=== PATIENT | female | born 1945 | race Caucasian/White ===

== ENCOUNTER → 2017-07-16 | Day surgery (SDC) | payer OTHER ==
[2017-05-21 13:51] VITALS: Ht 157.5 cm; Wt 93.2 kg
[~2017-07-16] VITALS: Ht 157.5 cm; Wt 93.2 kg
[~2017-07-16] MED LIST: AMLO-110 PO; ASPEC81 PO; CHOL1000 PO; CRS20 PO; GLCSR5 PO; LEVO100T PO; LISI-729 PO; METF1TAB53 PO; METO50TA16 PO; NAPR-1169 PO; RANI300T2 PO; SITA100T3 PO; TRIA37.5 PO
== END | disposition home or self-care (01) ==
LOC: EDSTATUS 13:30 → C.PAT 15:39
PROVIDERS: ATTEND Ophthalmology
DX: H26.9 Unspecified cataract (principal); Z53.9 Procedure and treatment not carried out, unspecified reason

== ENCOUNTER → 2018-05-13 | Day surgery (SDC) | payer OTHER ==
[2018-05-07 10:10] VITALS: BMI 35.0
[~2018-05-13] VITALS: Ht 154.9 cm; Wt 83.6 kg
[~2018-05-13] MED LIST changes: +ALEN70TA4 PO; -AMLO-110 PO; +AMLO5TAB3 PO; -ASPEC81 PO; +ASPI-319 PO; -CRS20 PO; +EMPA1TAB PO; +FENTANYL CITRATE INJ 50 MCG/1 ML 2 ML VIAL ONE; +FERR1TAB13 PO; -GLCSR5 PO; +GLIP-199 PO; -LEVO100T PO; +LEVO75TA PO; +LEVOPOW PO; +LIDOCAINE HCL 2% 2 ML VIAL (20MG/ML) ONE; -NAPR-1169 PO; +PROPOFOL IV EMULSION 10 MG/ML 20 ML VIAL ONE; +ROSU40TA PO; -SITA100T3 PO; +SODIUM CHLORIDE 0.9% 500ML 500 ML IV ONE; +TRMCR180 TOP
[2018-05-13 09:28] VITALS: Ht 154.9 cm; Wt 83.6 kg
--- NOTE | 2018-05-13 10:16 | Endo History and Physical ---
History & Physical Date of Service: May 13, 2018. Chief Complaint: ANEMIA GERD Referring Physician: DR BUENO History of Present Illness pt with heartburn and anemia Past Surgical History Hx Cardiac Surgery: Yes (HEART CATH, NO STENTS) Hx Internal Defibrillator: No Hx Pacemaker: No Hx Abdominal Surgery: No Hx of Implantable Prosthesis: No Hx Post-Op Nausea and Vomiting: No Hx Cancer Surgery: Yes (LUMPECTOMY) Hx Thoracic Surgery: No Hx Orthopedic: Yes (LT KNEE ARTHROSCOPY) Hx Urinary Tract Surgery: No Family History None Social History Smoking Status: Former Smoker Hx Substance Use: No Hx Alcohol Use: Yes (RARELY) Allergies Coded Allergies: No Known Allergies (Verified , 05/13/18) Current Medications Reported Home Medications Medications Dose Route/Sig Max Daily Dose Days Date Category Dose Instructions Jardiance (Empagliflozin) 10 Mg Tab 1 Tab PO QAM 05/07/18 Reported Kp Ferrous Sulfate (Ferrous Sulfate) 325 Mg Tab 1 Tab PO BID 05/07/18 Reported Aristocort 0.1% (Triamcinolone Acet) 240 Appln/80 Gm Cr 1 Dose TOP BID 05/07/18 Reported Fosamax (Alendronate Sodium) 70 Mg Tab 70 Mg PO WK 05/07/18 Reported L-Thyroxine Sodium (Levothyroxine Sodium (Bulk)) 1 Pow Pow 100 Mcg PO QAM 05/07/18 Reported Synthroid (Levothyroxine Sodium) 75 Mcg Tab 75 Mcg PO QAM 05/07/18 Reported Glipizide Er (Glipizide) 10 Mg Tab 2 Tab PO QAM 90 05/07/18 Reported Ecotrin Or Generic (Aspirin) 81 Mg Tab 81 Mg PO QAM 05/07/18 Reported Crestor (Rosuvastatin Calcium) 40 Mg Tab 40 Mg PO QAM 05/07/18 Reported Glucophage Ext Rel (Metformin Hcl) 1,000 Mg Tab 1,000 Mg PO BID 05/21/17 Reported Dyazide 37.5MG/25MG (Triamterene/HCTZ) Cap 1 Tab PO WK 09/10/16 Reported SATURDAY Vitamin D3 (Cholecalciferol) 1,000 Unit Tab 1 Tab PO QAM 09/10/16 Reported Norvasc (Amlodipine Besylate) 5 Mg Tab 2.5 Mg PO QAM 03/07/11 Reported Prinivil (Lisinopril) 5 Mg Tab 5 Mg PO QAM 03/07/11 Reported Lopressor (Metoprolol Tartrate) 50 Mg Tab 50 Mg PO BID 02/17/09 Reported Zantac (Ranitidine HCl) 300 Mg Tab 300 Mg PO HS PRN 02/17/09 Reported Vital Signs Weight (Kilograms): 83.63 Height (Feet): 5 Height (Inches): 1 Date Time Temp Pulse Resp B/P (MAP) Pulse Ox O2 Delivery O2 Flow Rate FiO2 05/13/18 09:33 37 75 18 175/77 (109) 96 Room Air Physical Exam General Appearance: no apparent distress Respiratory/Chest: Auscultation: breath sounds normal Cardiovascular: Heart Auscultation: RRR Abdomen: Inspection & Palpation: soft Liver: non-tender Assessment and Plan stable for EGD
--- NOTE | 2018-05-13 10:51 | Discharge Instructions ---
Endoscopy Patient Instructions Date / Procedure(s) Performed May 13, 2018. EGD Allergy Information Coded Allergies: No Known Allergies (Verified , 05/13/18) Discharge Date / Findings May 13, 2018. small gastric erosions no bleeding Medication Instructions Stopped Medication(s): ASPIRIN IRON Provider Instructions Activity Restrictions - No exercising or heavy lifting for 24 hours. - Do not drink alcohol the day of the procedure. - Do not drive a car or operate machinery until the day after the procedure. - Do not make any important decisions or sign important papers in 24 hours after the procedure. Following Day: - Return to full activity which may include returning to work/school. Diet Start your diet with liquids and light foods (jello, soup, juice, toast). Then eat your usual diet if not nauseated. Treatment For Common After Affects For mild abdominal pain, bloating, or excessive gas: - Rest - Eat lightly - Lie on right side Follow-Up Information Follow-up with DR BUENO as scheduled Anesthesia Information What You Should Know You have had a procedure that required some medicine to reduce anxiety and discomfort. This treatment is called moderate sedation. After receiving the treatment, you may be sleepy, but you will be able to breathe on your own. The effects of the treatment may last for several hours. Follow these instructions along with Activity/Diet recommendations noted above: * Do NOT do anything where dizziness or clumsiness would be dangerous. * Rest quietly at home today, then you can be up and about tomorrow. * Have a responsible person stay with you the rest of today. * You may have had an I.V. today. If so, you may take the dressing off later today. Recommendations Call your doctor if: * Trouble breathing * Continuous vomiting for more than 24 hours * Temperature above 101 degrees * Severe abdominal pain or bloating * Pain not relieved by pain medicine ordered * There is increased drainage or redness from any incision * A large amount of rectal bleeding greater than 2-3 tablespoons. (If you had a polyp/s removed or have hemorrhoids, a small amount of blood - from the rectum is to be expected.) * You have any unanswered questions or concerns. IN THE EVENT OF A SERIOUS EMERGENCY, GO TO THE NEAREST EMERGENCY ROOM Your discharge instructions were prepared by provider Matias Campos. Patient Instructions Signature Page Monique Galicia Patient (or Guardian) Signature/Date: I have read and understand the instructions given to me by my caregivers. Caregiver/RN/Doctor Signature/Date: The above-named patient and/or guardian has received patient instructions on this date. + Original Patient Signature Page (only) stays with chart. Please make copy for patient.
--- NOTE | 2018-05-13 10:57 | GI REPORT ---
Patient Name: Monique Galicia Procedure Date: 05/13/2018 10:22 AM Date of : 1945 Admit Type: Outpatient Age: 73 Gender: Female Attending MD: Matias Campos MD Procedure: Upper GI endoscopy Providers: Matias Campos MD Referring MD: Hemal Truong Indications: Heartburn, Anemia Medicines: See the Anesthesia note for documentation of the administered medications Complications: No immediate complications. Estimated Blood Loss: Estimated blood loss: none. Procedure: Pre-Anesthesia Assessment: - Prior to the procedure, a History and Physical was performed, and patient medications, allergies and sensitivities were reviewed. The patient's tolerance of previous anesthesia was reviewed. - The risks and benefits of the procedure and the sedation options and risks were discussed with the patient. All questions were answered and informed consent was obtained. - Patient identification and proposed procedure were verified prior to the procedure by the physician and the nurse. The procedure was verified in the pre-procedure area. - Pre-procedure physical examination revealed no contraindications to sedation. - After reviewing the risks and benefits, the patient was deemed in satisfactory condition to undergo the procedure. After obtaining informed consent, the endoscope was passed under direct vision. Throughout the procedure, the patient's blood pressure, pulse, and oxygen saturations were monitored continuously. The Scope was introduced through the mouth, and advanced to the third part of duodenum. The upper GI endoscopy was accomplished without difficulty. The patient tolerated the procedure well. Findings: The esophagus was normal. A small hiatal hernia was present. Multiple, small non-bleeding erosions were found in the cardia and in the gastric antrum. The examined duodenum was normal. The cardia and gastric fundus were normal on retroflexion. Impression: - Normal esophagus. - Small hiatal hernia. - Non-bleeding erosive gastropathy. - Normal examined duodenum. - No specimens collected. Recommendation: - Use a proton pump inhibitor PO daily indefinitely. - Discharge patient to home. Matias Campos M.D. Matias Campos MD 05/13/2018 10:57:06 AM This report has been signed electronically. Note Initiated On: 05/13/2018 10:22 AM Number of Addenda: 0 I attest to the content of the Intraoperative Record and orders documented therein, exceptions below {[id number]}
[2018-05-13 11:11] VITALS: BP 157/83; PULSE 65; O2SAT 96
--- NOTE | 2018-05-13 14:05 | Anesthesiology Progress Note ---
Anesthesia Post Op Note Date & Time May 13, 2018 at 14:04 Vital Signs Pain Intensity: 0 Vital Signs Past 12 Hours Date Time Temp Pulse Resp B/P (MAP) Pulse Ox O2 Delivery O2 Flow Rate FiO2 05/13/18 11:11 65 18 157/83 (107) 96 Room Air 05/13/18 10:56 69 18 174/81 (112) 93 Room Air 05/13/18 10:41 68 18 152/69 (96) 92 Room Air 05/13/18 09:33 37 75 18 175/77 (109) 96 Room Air Notes Mental Status: alert / awake / arousable, participated in evaluation Pt Amnestic to Procedure: Yes Nausea / Vomiting: adequately controlled Pain: adequately controlled Airway Patency, RR, SpO2: stable & adequate BP & HR: stable & adequate Hydration State: stable & adequate Anesthetic Complications: no major complications apparent
== END | disposition home or self-care (01) ==
LOC: C.GI 08:21
PROVIDERS: ATTEND Internal Medicine Gastroenterology
DX: K44.9 Diaphragmatic hernia without obstruction or gangrene (principal); K31.9 Disease of stomach and duodenum, unspecified; D64.9 Anemia, unspecified; I25.10 Atherosclerotic heart disease of native coronary artery without angina pectoris; I10 Essential (primary) hypertension; E11.9 Type 2 diabetes mellitus without complications; E78.5 Hyperlipidemia, unspecified; Z79.899 Other long term (current) drug therapy; Z79.82 Long term (current) use of aspirin; Z79.84 Long term (current) use of oral hypoglycemic drugs; Z87.891 Personal history of nicotine dependence

== ENCOUNTER 2019-02-17 11:21 | Inpatient (IN) ==
[2019-02-17] MEDS ORDERED: ONDANSETRON INJ 2 MG/ML 2 ML VIAL IV STA ×2 (12:59→15:18)
[2019-02-17] MEDS ORDERED: SODIUM CHLORIDE 0.9% 1000ML 1,000 ML IV SCH (13:00)
[2019-02-17] MEDS ORDERED: ONDANSETRON 4 MG OD TAB PO STA (13:26)
[2019-02-17] MEDS ORDERED: FAMOTIDINE 20MG/5ML IV PUSH IV STA (13:26)
[2019-02-17 14:10] LABS: Hematocrit (blood only) 51.6 % (37-47); Hemoglobin 17.4 g/dL (12.0-16.0); Mean Corpuscular Hgb Conc 33.7 g/dL (32-36); Mean Corpuscular Volume 88.8 fL (80-100); Mean Platelet Volume 9.8 fL (7.4-10.4); Platelet Count 405 K/uL (130-400); RDW Coefficient of Variation 15.5 % (11.5-14.5); RDW Standard Deviation 50.1 fL (36.4-46.3); Red Blood Count 5.81 M/uL (4.2-5.4); White Blood Count 27.82 K/uL (4.8-10.8)
[2019-02-17 14:13] LABS: Basophils # (auto) 0.02 K/uL (0-0.2); Basophils % (auto) 0.1 %; Immature Granulocytes # (auto) 0.13 K/uL (0.00-0.02); Immature Granulocytes % (auto) 0.5 %; Lymphocytes # (auto) 2.13 K/uL (1.2-3.4); Lymphocytes % (auto) 7.7 %; Monocytes # (auto) 1.08 K/uL (0.11-0.59); Monocytes % (auto) 3.9 %; Neutrophils # (auto) 24.46 K/uL (1.4-6.5); Neutrophils % (auto) 87.8 %
[2019-02-17 14:18] LABS: Alanine Aminotransferase 26 U/L (12-78); Albumin Globulin Ratio 0.8 (0.9-2); Albumin Level 3.7 gm/dl (3.4-5.0); Alkaline Phosphatase 100 U/L (45-117); Aspartate Aminotransferase 17 U/L (15-37); Bilirubin,Total 0.6 mg/dl (0.2-1); Blood Urea Nitrogen 52 mg/dl (7-18); Calcium 9.6 mg/dl (8.5-10.1); Carbon Dioxide 21 mmol/L (21-32); Chloride 100 mmol/L (98-107); Est GFR (African American) 27.5; Est GFR (Non-African American) 23.7; Globulin 4.9 gm/dl (2.5-4.0); Glucose 585 mg/dl (70-99); Potassium 4.1 mmol/L (3.5-5.1); Sodium 137 mmol/L (136-145); Total Protein 8.6 gm/dl (6.4-8.2)
[2019-02-17] MEDS ORDERED: DKA GOAL RANGE 150-250 mg/dl ONE ×2 (14:19→18:46)
[2019-02-17] MEDS ORDERED: SEVERE STRESS LEVEL ONE (14:19)
[2019-02-17 14:54] LABS: Beta-Hydroxybutyrate 60.17 mg/dl (0.2-2.81)
[2019-02-17] MEDS ORDERED: PANTOprazole 80 MG in DEXTROSE 5% 100 ML IV STA (15:22)
--- NOTE | 2019-02-17 15:32 | CT Scan Report ---
ABDOMEN AND PELVIS CT WITHOUT CONTRAST CT DOSE: 587.67 mGy.cm HISTORY: Acute abdominal pain with emesis abd pain vomiting TECHNIQUE: Multiaxial CT images of the abdomen and pelvis were performed without contrast. A dose lo wering technique was utilized adhering to the principles of ALARA. COMPARISON STUDY: None. FINDINGS: Linear subsegmental groundglass opacities of the left lung base suggest atelectasis and/or scarring. Right lung base is generally clear. No pneumatosis or pneumoperitoneum. Imaged inferior cardiac chamb ers are mildly enlarged with coronary arterial calcifications noted. There are large gallstones noted about the gallbladder lumen without CT evidence of acute cholecystit is. No biliary ductal dilation. Hepatic steatosis. No evidence of cirrhosis or focal hepatic mass les ion. The spleen appears unremarkable. Mild right and moderate left adrenal gland thickening. Mild inf lammatory stranding is noted about the distal pancreatic body and tail. Pancreas otherwise appears un remarkable. Mild nonspecific left perinephric stranding. Right kidney and bilateral ureters are unrem arkable. Urinary bladder, uterus and adnexa are within normal limits. Extensive calcification of the aorta without aneurysm. No adenopathy. 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 The stomach is m oderately fluid distended. The distal stomach and duodenum are decompressed. There is no small bowel obstruction. Colonic diverticulosis without acute diverticulitis. The majority of the large bowel is decompressed. The terminal ileum and appendix appear normal. No drainable fluid collection. Soft tiss ues appear unremarkable. Degenerative changes of the pelvis, hips and spine. Demineralized appearance of the bones without acute fracture or suspicious bone lesion identified. IMPRESSION: 1. Moderately distended stomach with large hiatal hernia and suggested organoaxial gastric volvulus. Correlate clinically to exclude gastric outlet obstruction. 2. Mild inflammatory stranding about the distal pancreatic body and tail. Correlate with lipase level to exclude acute pancreatitis. 3. Cholelithiasis without CT evidence of acute cholecystitis or biliary ductal dilation. 4. Colonic diverticulosis without definite CT evidence of acute diverticulitis. 5. Normal appendix. 6. Hepatic steatosis. 7. Additional findings as above. Electronically signed by: Tariq Medina M.D. 02/17/2019 3:31 PM
[2019-02-17] MEDS ORDERED: SODIUM CHLORIDE 0.9% 1000ML 1,000 ML IV ONE ×2 (15:35→16:06)
[2019-02-17] MEDS ORDERED: POTASSIUM CHLORIDE / WTR 10 MEQ/100 ML PLCT IV SCH (16:15)
[2019-02-17] MEDS ORDERED: NovoLIN-R BOLUS FROM BAG IV ONE (16:15)
[2019-02-17] MEDS: INSULIN REGULAR 250 UNITS in SODIUM CHLORIDE 0.9% 247.5 ML IV SCH ×2 (16:31→19:57)
--- NOTE | 2019-02-17 16:36 | Gastrointestinal Consultation ---
Date of Consultation February 17, 2019 Assessment & Plan (1) Hiatal hernia: (2) Volvulus of stomach: Pt is a 73 y/o female who presented to ED w N/V x 2 days, coffee ground emesis, upon eval noted to have leukocytosis, appears dehydrated and in DKA. CT abd/pelvis showed distended stomach w large hiatal hernia and gastric volvulus. Mild peripancreatic inflammatory stranding but normal LFTs and lipase thus less likely having pancreatitis. - Keep NPO; IVF bolus and maintenance fluid for hydration, insulin gtt ordered by ED physician - NGT decompression. - Protonix bolus and gtt. - Discussed case with my attending Dr. Matias Campos who recommended surgical eval for the volvulus and endoscopic approach would less likely to be successful. Primary team consulted Gen Surgery, recommended CT surgery for the gastric volvulus. Dr. Segovia (CT Surgery) is going to come in and evaluate pt. Supervising Physician Co-Signing Physician Notes I discussed the case in detail with COLIN Lawler. We suggest NGT and surgical evaluation. History of Present Illness Reason for Consultation: N/V, coffee ground emesis Requesting Physician: Dr. Tan Chen Attending Physician: Dr. Matias Campos History of Present Illness Pt is a 73 y/o female who was referred to ED by her PCP for n/v symptoms x 2 days, initially suspected to be from pancreatitis as her Lipase was elevated on outpt labs. She has PMHx of DM II, hypothyroidism, HTN, GERD, hiatal hernia, dyslipidemia. Upon evaluation labs showed WBC 27K, H/H 17/51, BUN/Cr 52/2, glucose is 585, LFTs and Lipase normal. CT abd/pelvis showed moderately distended stomach with large hiatal hernia and suggested organoaxial gastric volvulus. There's a mild inflammatory stranding about the distal pancreatic body and tail. + Cholelithiasis without CT evidence of acute cholecystitis or biliary ductal dilation. She appears weak, denies any abd pain, noted still having n/v, emesis bag w coffee ground looking material. Upon exam she is tender to palpation on epigastric area. Allergies Allergy/AdvReac Type Severity Reaction Status Date / Time No Known Allergies Allergy Verified 02/17/19 13:52 Home Medications Home Medications Medication Instructions Recorded Confirmed Type alendronate 70 mg PO WK 02/17/19 02/17/19 History amlodipine 5 mg PO DAILY 02/17/19 02/17/19 History aspirin [Aspirin Low Dose] 81 mg PO DAILY 02/17/19 02/17/19 History cholecalciferol (vitamin D3) 2,000 unit PO DAILY 02/17/19 02/17/19 History [Vitamin D3] diclofenac sodium 1 applic TOPICAL Q6H PRN 02/17/19 02/17/19 History empagliflozin [Jardiance] 10 mg PO DAILY 02/17/19 02/17/19 History ferrous sulfate 1 tab PO BID 02/17/19 02/17/19 History glipizide 20 mg PO DAILY 02/17/19 02/17/19 History levothyroxine 75 mcg PO DAILY 02/17/19 02/17/19 History lisinopril 5 mg PO DAILY 02/17/19 02/17/19 History metformin 1,000 mg PO BID 02/17/19 02/17/19 History metoprolol tartrate 50 mg PO BID 02/17/19 02/17/19 History omeprazole 20 mg PO DAILY 02/17/19 02/17/19 History ondansetron 1 tab TRANSLINGUAL Q8H PRN 02/17/19 02/17/19 History rosuvastatin [Crestor] 40 mg PO DAILY 02/17/19 02/17/19 History triamcinolone acetonide 1 applic TOPICAL BID 02/17/19 02/17/19 History triamterene-hydrochlorothiazid 1 cap PO DAILY 02/17/19 02/17/19 History Patient History Medical History Volvulus of stomach Diabetic neuropathy (Chronic) Diabetic retinopathy (Chronic) Hypothyroidism (Chronic) HLD (hyperlipidemia) (Chronic) HTN (hypertension) (Chronic) CAD (coronary artery disease) (Chronic) mild to moderate obstructive disease per left heart cath GERD (gastroesophageal reflux disease) (Chronic) Hiatal hernia (Chronic) Diverticulosis (Chronic) Senile osteoporosis (Chronic) Breast cancer, right (Chronic) PVD (peripheral vascular disease) (Chronic) Diabetes (Chronic) Surgical History History of colonoscopy with polypectomy (Chronic) History of esophagogastroduodenoscopy (EGD) (Chronic) erosive gastropathy History of partial mastectomy of right breast (Chronic) History of arthroscopy of knee (Chronic) Family History Mother Coronary heart disease Father Alzheimer disease Sister Diabetes Coronary heart disease Brother Coronary heart disease Other Family history non-contributory Social History Preferred Language: Armenian Communication Ability: Effective marital status: Current Living Situation: Spouse current occupational status: retired Feels Safe at Home: Yes Smoking Status: Never smoker Do You Dip or Chew Tobacco: No Hx Alcohol Use: No Hx Substance Use: No Review of Systems Review of Systems: All systems reviewed & are unremarkable except as noted in HPI & below Physical Exam Constitutional: WD/WN, vitals as above + ill appearing and cooperative Eyes: PERRL, conjunctivae normal, anicteric sclerae ENMT: external ear and nose normal, oropharynx normal Respiratory: normal respiratory effort, lungs clear to auscultation Cardiovascular: RRR, no murmur, no edema Gastrointestinal (Abdomen): Inspection/Auscultation: + hypoactive bowel sounds Percussion/Palpation: + abdomen tender (epigastric ) and abdomen soft Skin: no rashes, warm and dry no jaundice Neurologic: Motor/Sensory: no asterixis Psychiatric: Orientation: alert, oriented x 3 and cooperative Affect: + depressed affect Lymphatic: no lymphedema Results & Data Vital Signs (Past 12 Hours) Vital Signs Temp Pulse Pulse Resp BP BP Pulse Ox 02/17/19 14:34 109 H 16 132/88 94 02/17/19 13:20 103 H 16 136/81 92 02/17/19 11:25 36.9 C 114 H 20 114/76 93
--- NOTE | 2019-02-17 16:40 | Anesthesiology Consultation ---
Date of Service February 17, 2019 Assessment & Plan Chart Review Chart Review: Acceptable Risk for Surgery (Emergency) and Patient NOT seen in Pre Admission Testing Consults Requested none Pre op ECG done showing ST elevation, STEMI and anterior MT. Discussed case with Dr. Cox, clinical engineering manager and Dr. Segovia. Discussed findings with patient and her as well. Decision was made to resuscitate patient and investigate her cardiac condition further. [employer] is consulted. Pt will be taken to ICU under Dr. Khan care. ASA [id number] Proposed Anesthesia Anesthesia Type: General Anesthesia Line Insertion: Arterial line Risk / Benefits Reviewed With: PT / POA / Parent / Guardian, Accepts Plan and Informed Consent Obtained Additional Comments: R/B of anesthesia explained to patient and her husbang including her high risk for cardiac complications due to her comorbidities. Pt accepting risks and consent was signed. History Surgery Operation Date: 02/18/19 08:30 Proposed Procedures p Robotic Laparoscopic Hiatal Hernia Repair - Dell Segovia MD, FACS Height/Weight Height: 1.55 m Weight: 87.4 kg Allergies Allergy/AdvReac Type Severity Reaction Status Date / Time No Known Allergies Allergy Verified 02/17/19 13:52 Medications Home Medications Medication Instructions Recorded Confirmed Last Taken alendronate 70 mg PO WK 02/17/19 02/17/19 Unknown amlodipine 5 mg PO DAILY 02/17/19 02/17/19 Unknown aspirin [Aspirin Low Dose] 81 mg PO DAILY 02/17/19 02/17/19 Unknown cholecalciferol (vitamin D3) 2,000 unit PO DAILY 02/17/19 02/17/19 Unknown [Vitamin D3] diclofenac sodium 1 applic TOPICAL Q6H PRN 02/17/19 02/17/19 Unknown empagliflozin [Jardiance] 10 mg PO DAILY 02/17/19 02/17/19 Unknown ferrous sulfate 1 tab PO BID 02/17/19 02/17/19 Unknown glipizide 20 mg PO DAILY 02/17/19 02/17/19 Unknown levothyroxine 75 mcg PO DAILY 02/17/19 02/17/19 Unknown lisinopril 5 mg PO DAILY 02/17/19 02/17/19 Unknown metformin 1,000 mg PO BID 02/17/19 02/17/19 Unknown metoprolol tartrate 50 mg PO BID 02/17/19 02/17/19 Unknown omeprazole 20 mg PO DAILY 02/17/19 02/17/19 Unknown ondansetron 1 tab TRANSLINGUAL Q8H PRN 02/17/19 02/17/19 Unknown rosuvastatin [Crestor] 40 mg PO DAILY 02/17/19 02/17/19 Unknown triamcinolone acetonide 1 applic TOPICAL BID 02/17/19 02/17/19 Unknown triamterene-hydrochlorothiazid 1 cap PO DAILY 02/17/19 02/17/19 Unknown Active Medications Generic Name Dose Route Start Last Admin Trade Name Veronica PRN Reason Stop Dose Admin Insulin Human Regular 250 250 mls @ 4 mls/hr 02/17/19 14:30 02/17/19 16:31 units/ Sodium Chloride IV 03/19/19 14:29 4 units/hr .Q24H GILMA 4 mls/hr Administration Protocol 4 UNITS/HR NPO Date Last Intake of Fluids: 02/17/19 Time Last Intake of Fluids: 08:00 Date Last Intake of Solids: 02/17/19 Time Last Intake of Solids: 08:00 Past Medical History Medical History Volvulus of stomach Diabetic neuropathy (Chronic) Diabetic retinopathy (Chronic) Hypothyroidism (Chronic) HLD (hyperlipidemia) (Chronic) HTN (hypertension) (Chronic) CAD (coronary artery disease) (Chronic) mild to moderate obstructive disease per left heart cath GERD (gastroesophageal reflux disease) (Chronic) Hiatal hernia (Chronic) Diverticulosis (Chronic) Senile osteoporosis (Chronic) Breast cancer, right (Chronic) PVD (peripheral vascular disease) (Chronic) Diabetes (Chronic) Exercise / Class Metabolic Activity III < 4 Walking/Shop/Light housework Past Surgical History Surgical History History of colonoscopy with polypectomy (Chronic) History of esophagogastroduodenoscopy (EGD) (Chronic) erosive gastropathy History of partial mastectomy of right breast (Chronic) History of arthroscopy of knee (Chronic) Past Anesthesia History No Hx of Anesthesia Complications and No Family Hx of Anesthesia Complications History of PONV No Hx of PONV and No Hx of Motion Sickness Social History Smoking Status: Never smoker Do You Dip or Chew Tobacco: No Hx Alcohol Use: No Hx Substance Use: No Review of Systems Respiratory: no dyspnea Cardiovascular: no chest pain Gastrointestinal: + nausea, + vomiting and + hematemesis Physical Exam Vital Signs Last Vital Signs Temp 36.9 C 02/17/19 11:25 Pulse 110 H 02/17/19 16:10 Resp 19 02/17/19 16:10 BP 137/77 02/17/19 16:10 Pulse Ox 93 02/17/19 16:10 Constitutional + obese ENMT Mouth: + edentulous; no TMJ abnormality and no TMJ clicking Thyromental Distance: < 3.5 Finger Breadths Mallampati Class: II Neck normal visual inspection and + thick neck; neck extension not limited Respiratory Auscultation: lungs clear to auscultation bilaterally Cardiovascular Rate/Rhythm: regular rate and regular rhythm Psychiatric Orientation: alert and oriented x 3 Testing Electrocardiogram Date: 02/17/19 Findings: + NSR @ (95 bpm) Possible left atrial enlargement rightward axis Inferior infarct, possible acute Anterior MT, STEMI Cardiac Catheterization Date: 02/17/19 1. Mild to moderate early atherosclerotic CAD with a smooth 40% narrowing of the proximal LAD. Mild luminal irregularities of other vasculature 2. Hypedynamic LV function 3. Probable hypertensive heart disease 4. EF: 65% Other Testing Abdominal CT FINDINGS: Linear subsegmental groundglass opacities of the left lung base suggest atelectasis and/or scarring. Right lung base is generally clear. No pneumatosis or pneumoperitoneum. Imaged inferior cardiac chambers are mildly enlarged with coronary arterial calcifications noted. There are large gallstones noted about the gallbladder lumen without CT evidence of acute cholecystitis. No biliary ductal dilation. Hepatic steatosis. No evidence of cirrhosis or focal hepatic mass lesion. The spleen appears unremarkable. Mild right and moderate left adrenal gland thickening. Mild inflammatory stranding is noted about the distal pancreatic body and tail. Pancreas otherwise appears unremarkable. Mild nonspecific left perinephric stranding. Right kidney and bilateral ureters are unremarkable. Urinary bladder, uterus and adnexa are within normal limits. Extensive calcification of the aorta without aneurysm. No adenopathy. 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 The stomach is moderately fluid distended. The distal stomach and duodenum are decompressed. There is no small bowel obstruction. Colonic diverticulosis without acute diverticulitis. The majority of the large bowel is decompressed. The terminal ileum and appendix appear normal. No drainable fluid collection. Soft tissues appear unremarkable. Degenerative changes of the pelvis, hips and spine. Demineralized appearance of the bones without acute fracture or suspicious bone lesion identified. IMPRESSION: 1. Moderately distended stomach with large hiatal hernia and suggested organoaxial gastric volvulus. Correlate clinically to exclude gastric outlet obstruction. 2. Mild inflammatory stranding about the distal pancreatic body and tail. Correlate with lipase level to exclude acute pancreatitis. 3. Cholelithiasis without CT evidence of acute cholecystitis or biliary ductal dilation. 4. Colonic diverticulosis without definite CT evidence of acute diverticulitis. 5. Normal appendix. 6. Hepatic steatosis. 7. Additional findings as above. Laboratory Results 02/17/19 13:31 02/17/19 13:31 Blood Type O Positive 02/17/19 13:31 Antibody Screen NEGATIVE 02/17/19 13:31 On insulin drip at 4units/hr
--- NOTE | 2019-02-17 16:48 | History & Physical Report ---
Date of Service February 17, 2019 Assessment & Plan (1) Volvulus of stomach: (2) Hematemesis: (3) Leukocytosis: This is a 73 yr old F who has a significant PMH of T2DM with neuropathy and retinopathy, nonobstructive CAD, HTN, HLD, hypothyroidism, Gerd, hiatal hernia, PVD, senile osteoporosis, hx of R breast ca s/p mastectomy who presents to [facility] secondary to intractable n/v x 2 day. In ED patient was noted to have leukocytosis at 27.82k, H/H 17.4 and 51.6, platelet 405, corrected sodium 141, potassium 4.1, BUN 52, creatinine 2.02, gap 16, glucose 585, lipase 270, beta hydroxybutyric acid 60 CT of abdomen pelvis revealed gastric volvulus in setting of large hiatal hernia concerning for gastric outlet obstruction along with inflammatory stranding about the distal pancreatic body and tail concerning for acute pancreatitis GI and Thoracic surgery consulted Spoke with Dr. Segovia - Pt to require surgical intervention; however upon anesthesia evaluation pt with ECG changes therefore will not undergo surgical intervention this evening admit to ICU post operatively please defer to thoracic surgery and wine consultant for further assessment and tx plan (4) SIRS (systemic inflammatory response syndrome): Pt with leukocytosis and tachycardia on admission, per CMS guidelines meets SIRS criteria urine culture and blood culture pending lactic acid level pending received 2 L IVF while in ED Start patient of IV zosyn until infection ruled out (5) DKA (diabetic ketoacidoses): Blood glucose on arrival 585 Hold oral hypoglycemics Patient received IV insulin while in ED Will place on insulin drip and IVF resuscitation Monitor VBG pH, BMP, mag, phos every 4 hours (6) Acute kidney injury: Baseline creatinine 0.6 BUN/creatinine 52 and 2.02 today Prerenal hypovolemia in setting of intractable nausea and vomiting IV fluid resuscitation, monitor BMP (7) Diabetes: Last A1c 7.3 on 02/10/2019 Treatment as above (8) CAD (coronary artery disease): No chest pain or shortness of breath ECG pending On metoprolol, lisinopril, Crestor, ASA as outpatient (9) HTN (hypertension): Blood pressure currently stable, monitor closely On metoprolol, lisinopril, amlodipine as outpatient (10) HLD (hyperlipidemia): Hold statin (11) DVT prophylaxis: SCDS Disposition: to be determined Follow up: PCP Dr. Truong upon discharge Patient was seen and examined in collaboration with Dr. Hammer, please see addendum History of Present Illness Chief Complaint: N/V x 2 days. Primary Care Provider: Hemal Truong MD This is a 73 yr old F who has a significant PMH of T2DM with neuropathy and retinopathy, nonobstructive CAD, HTN, HLD, hypothyroidism, Gerd, hiatal hernia, PVD, senile osteoporosis, hx of R breast ca s/p mastectomy who presents to [facility] secondary to intractable n/v x 2 day. is at bedside. Sx started on Saturday after alevism when she had a meat lovers pizza. Shortly after she developed nausea and vomiting. Since she has been having intractable nausea vomiting along with coffee-ground emesis. She is unable to tolerate liquid or solids. Never had anything like this in the past. Complains of left-sided abdominal pain, constant, waxes and wanes in severity, nothing makes it better or worse. Elicits to chills and sweats. She denies any recent illness or sick contacts. She denies fever, lightheadedness, dizziness, chest pain, shortness of breath, palpitations, dysuria, increased urgency with urination, hematuria, melena, hematochezia. Up until 2 days ago her appetite and p.o. intake has been normal. She denies any helen weight loss or gain. She is unable to take meds given emesis. Allergies Allergy/AdvReac Type Severity Reaction Status Date / Time No Known Allergies Allergy Verified 02/17/19 13:52 Home Medications Home Medications Medication Instructions Recorded Confirmed Type alendronate 70 mg PO WK 02/17/19 02/17/19 History amlodipine 5 mg PO DAILY 02/17/19 02/17/19 History aspirin [Aspirin Low Dose] 81 mg PO DAILY 02/17/19 02/17/19 History cholecalciferol (vitamin D3) 2,000 unit PO DAILY 02/17/19 02/17/19 History [Vitamin D3] diclofenac sodium 1 applic TOPICAL Q6H PRN 02/17/19 02/17/19 History empagliflozin [Jardiance] 10 mg PO DAILY 02/17/19 02/17/19 History ferrous sulfate 1 tab PO BID 02/17/19 02/17/19 History glipizide 20 mg PO DAILY 02/17/19 02/17/19 History levothyroxine 75 mcg PO DAILY 02/17/19 02/17/19 History lisinopril 5 mg PO DAILY 02/17/19 02/17/19 History metformin 1,000 mg PO BID 02/17/19 02/17/19 History metoprolol tartrate 50 mg PO BID 02/17/19 02/17/19 History omeprazole 20 mg PO DAILY 02/17/19 02/17/19 History ondansetron 1 tab TRANSLINGUAL Q8H PRN 02/17/19 02/17/19 History rosuvastatin [Crestor] 40 mg PO DAILY 02/17/19 02/17/19 History triamcinolone acetonide 1 applic TOPICAL BID 02/17/19 02/17/19 History triamterene-hydrochlorothiazid 1 cap PO DAILY 02/17/19 02/17/19 History Past Med/Surg History Medical History Volvulus of stomach Diabetic neuropathy (Chronic) Diabetic retinopathy (Chronic) Hypothyroidism (Chronic) HLD (hyperlipidemia) (Chronic) HTN (hypertension) (Chronic) CAD (coronary artery disease) (Chronic) mild to moderate obstructive disease per left heart cath GERD (gastroesophageal reflux disease) (Chronic) Hiatal hernia (Chronic) Diverticulosis (Chronic) Senile osteoporosis (Chronic) Breast cancer, right (Chronic) PVD (peripheral vascular disease) (Chronic) Diabetes (Chronic) Surgical History History of colonoscopy with polypectomy (Chronic) History of esophagogastroduodenoscopy (EGD) (Chronic) erosive gastropathy History of partial mastectomy of right breast (Chronic) History of arthroscopy of knee (Chronic) Family History Mother Coronary heart disease Father Alzheimer disease Sister Diabetes Coronary heart disease Brother Coronary heart disease Other Family history non-contributory Social History Preferred Language: Congolese Communication Ability: Effective marital status: Current Living Situation: Spouse current occupational status: retired Feels Safe at Home: Yes Smoking Status: Never smoker Do You Dip or Chew Tobacco: No Hx Alcohol Use: No Hx Substance Use: No Review of Systems Review of Systems: As noted per HPI, 10 systems reviewed and negative unless noted above. Physical Exam Physical Exam: Gen: Elderly, female, ill-appearing, having coffee-ground emesis during conversation, sitting up in bed, able to answer questions appropriately Head: Normocephalic, Atraumatic Eyes: Sclera normal, no conjunctival injection, PERRLA, EOMI ENT: Gross hearing intact, normal pharynx, mucous membranes dry Neck: supple, no adenopathy, No JVD, no bruit, Resp: Clear to auscultation b/l, no wheeze, rales, rhonchi. Normal insp/exp effort, no accessory muscle use CV: Tachycardic rate, regular rhythm, no murmur, rub, gallop, or ectopy Abd: Obese abdomen, absent bowel sounds, soft, nontender, nondistended Musculoskeletal: moves extremities active rom x 4, strength intact, good manager investment banking strength Extremities: +1 lower extremity jp bilaterally Skin: warm, dry, no rash, negative turgor, cap refill < 2sec Neuro: Alert and oriented x 3, speech normal, good mood/affect, cran nerve 2-12 intact grossly : deferred Results & Data Vital Signs (Past 12 Hours) Vital Signs Temp Pulse Pulse Resp BP BP Pulse Ox 02/17/19 16:10 110 H 19 137/77 93 02/17/19 16:00 110 H 20 92 02/17/19 15:31 97 H 22 130/73 92 02/17/19 15:30 103 H 21 93 02/17/19 15:26 107 H 20 92 02/17/19 15:23 112 H 20 135/93 92 02/17/19 14:34 109 H 16 132/88 94 02/17/19 13:20 103 H 16 136/81 92 02/17/19 11:25 36.9 C 114 H 20 114/76 93 Laboratory Results Short CBC 02/17/19 Range/Units 13:31 WBC 27.82 H (4.8-10.8) K/uL Hgb 17.4 H (12.0-16.0) g/dL Hct 51.6 H (37-47) % Plt Count 405 H (130-400) K/uL BMP 02/17/19 13:31 Sodium 137 Potassium 4.1 Chloride 100 Carbon Dioxide 21 BUN 52 H Creatinine 2.02 H Glucose 585 H* Calcium 9.6 Liver Function 02/17/19 Range/Units 13:31 Total Bilirubin 0.6 (0.2-1) mg/dl AST 17 (15-37) U/L ALT 26 (12-78) U/L Alkaline Phosphatase 100 (45-117) U/L Albumin 3.7 (3.4-5.0) gm/dl Diagnostic Findings Abd/Pelvis CT: IMPRESSION: 1. Moderately distended stomach with large hiatal hernia and suggested organoaxial gastric volvulus. Correlate clinically to exclude gastric outlet obstruction. 2. Mild inflammatory stranding about the distal pancreatic body and tail. Correlate with lipase level to exclude acute pancreatitis. 3. Cholelithiasis without CT evidence of acute cholecystitis or biliary ductal dilation. 4. Colonic diverticulosis without definite CT evidence of acute diverticulitis. 5. Normal appendix. 6. Hepatic steatosis. 7. Additional findings as above. Medications Administered Insulin Human Regular 250 (units/ Sodium Chloride) 250 mls @ 4 mls/hr IV .Q24H GILMA; Protocol Stop: 03/19/19 14:29 Last Admin: 02/17/19 16:31 Dose: 4 units/hr, 4 mls/hr Documented by: [id number] Cosigned by: [id number] Sodium Chloride (Nss 1000ml) 1,000 mls @ 999 mls/hr IV .Q1H1M ONE Stop: 02/17/19 17:06 Last Admin: 02/17/19 16:12 Dose: 999 mls/hr Documented by: [id number] Discontinued Medications Famotidine (Pepcid 20mg Iv Push) 20 mg IV ONE STA Stop: 02/17/19 13:27 Last Admin: 02/17/19 13:51 Dose: 20 mg Documented by: [id number] Sodium Chloride (Nss 1000ml) 1,000 mls @ 999 mls/hr IV .Q1H1M GILMA Stop: 02/17/19 14:00 Last Infusion: 02/17/19 14:54 Dose: 0 mls/hr Documented by: [id number] Admin: 02/17/19 13:52 Dose: 999 mls/hr Documented by: [id number] Pantoprazole Sodium 80 mg/ (Dextrose) 120 mls @ 480 mls/hr IV NOW STA Stop: 02/17/19 15:36 Last Infusion: 02/17/19 16:14 Dose: 0 mls/hr Documented by: [id number] Admin: 02/17/19 15:57 Dose: 480 mls/hr Documented by: [id number] Insulin Human Regular (Novolin R Bolus From Bag) 7 units IV ONE ONE Stop: 02/17/19 16:16 Last Admin: 02/17/19 16:31 Dose: 7 units Documented by: [id number] Cosigned by: [id number] Ondansetron HCl (Zofran) 4 mg IV NOW STA Stop: 02/17/19 13:00 Last Admin: 02/17/19 14:34 Dose: 4 mg Documented by: [id number] Ondansetron HCl (Zofran Odt) 4 mg PO NOW STA Stop: 02/17/19 13:27 Last Admin: 02/17/19 13:50 Dose: 4 mg Documented by: [id number] Ondansetron HCl (Zofran) 4 mg IV NOW STA Stop: 02/17/19 15:19 Last Admin: 02/17/19 15:28 Dose: 4 mg Documented by: [id number] Code Status & VTE Plan Code Status Full Code VTE Prophylaxis Plan VTE Prophylaxis will be ordered: Yes Supervising Physician Co-Signing Physician Notes Pt was seen and examined. Agreed with Sydney exam, assessment and plan. 73 y/o Female with significant PMH of T2DM with neuropathy and retinopathy, nonobstructive CAD, HTN, HLD, hypothyroidism, Gerd, hiatal hernia, PVD, senile osteoporosis, hx of R breast ca s/p mastectomy who presents to [facility] for n/v started about 2 days ago. Her symptoms started about 2 days ago after she had a meat lovers pizza. She has been having recurrent vomiting with coffee-ground emesis. CT abdomen done in the ER showed moderately distended stomach with large hiatal hernia and suggested organoaxial gastric volvulus. Mild inflammatory stranding about the distal pancreatic body and tail. Case discussed with thoracic surgery dr. Segovia who planned to take patient to OR, but because of abnormal EKG finding and elevated glucose with elevated anion gap, surgery was on hold until cardiac clearance. Pt denies any chest pain. GI on board and recommended to start on PPI drip. NGT was placed with low suction that drained coffee ground material in the canister. Case discussed with cardiology Dr. Arora who saw pt and planned to get a bedside echo now. Also I discussed the case with Dr. Cole since pt followed with [facility] cardiology who plan to get a stat echo and possible cardiac cath. case discussed with Dr. Cox the wine consultant who agreed to monitor pt closely in the ICU. Will follow up lactic acid level. will get troponin. Continue IVF. Monitor electrolytes and CBC. If pt decompensates overnight, will notify thoracic surgeon Dr. Segovia. Will keep NPO for now. Continue monitor closely. MD Harman (1) DKA (diabetic ketoacidoses) Diabetes mellitus complication detail: without coma Diabetes mellitus type: other specified (including PAULA) Qualified Code(s): E13.10 - Other specified diabetes mellitus with ketoacidosis without coma (2) Leukocytosis Leukocytosis type: unspecified Qualified Code(s): D72.829 - Elevated white blood cell count, unspecified (3) Hematemesis Nausea presence: unspecified Qualified Code(s): K92.0 - Hematemesis
[2019-02-17] MEDS ORDERED: MIDAZOLAM HCL 1 MG/ML 2ML VIAL ONE (16:54)
[2019-02-17] MEDS ORDERED: fentaNYL citrate 100 MCG/2 ML VIAL ONE ×2 (16:54)
[2019-02-17] MEDS ORDERED: SODIUM CHLORIDE 0.9% 250 ML IV PRN (17:28)
[2019-02-17] MEDS ORDERED: INSULIN ASPART 100 UNITS/ML 3 ML PEN SC SCH (18:00)
[2019-02-17 18:10] LABS: Base Excess VBG -2.4 mEq/L; Oxygen Saturation VBG 60.8 %; pH VBG 7.36 (7.36-7.41)
--- NOTE | 2019-02-17 18:21 | Emergency Department Note ---
Entered by Maureen Haynes acting as a scribe for History of Present Illness General Chief complaint: Abnormal Labs/Diagnostic Testing Stated complaint: PANCREATITIS Source: patient and family (daughter) History of Present Illness Onset (ago): day(s) 2 Location: abdomen Pain Consistency: + other (persistent) Quality: + other (vomiting) Exacerbated By: not by eating Associated symptoms: + denies other symptoms (dysuria, fever, chest pain, short ness of breath, or hematemesis) The patient is a 73 year old female that is presenting to the Emergency Room with complaints of persistent vomiting that started 2 days ago. The patient rep orts that she has left upper abdominal pain that is unchanged by eating or drinking. She states that her symptoms are not similar to any previous episodes. The patient notes that she has lost her voice secondary to the vomiting. She denies any dysuria, fever, chest pain, shortness of breath, or hematemesis. The patients daughter states that the patients vomit was coffee ground-like after arriving to the Emergency Room. The daughter notes that she is unsure what the vomit was like at home as she was unable to visualize it. She denies any prior abdominal surgery and notes that she still has her gall bladder. She denies drinking any alcohol. Home Medications Home Medications Medication Instructions Recorded Confirmed Type alendronate 70 mg PO WK 02/17/19 02/17/19 History amlodipine 5 mg PO DAILY 02/17/19 02/17/19 History aspirin [Aspirin Low Dose] 81 mg PO DAILY 02/17/19 02/17/19 History cholecalciferol (vitamin D3) 2,000 unit PO DAILY 02/17/19 02/17/19 History [Vitamin D3] diclofenac sodium 1 applic TOPICAL Q6H PRN 02/17/19 02/17/19 History empagliflozin [Jardiance] 10 mg PO DAILY 02/17/19 02/17/19 History ferrous sulfate 1 tab PO BID 02/17/19 02/17/19 History glipizide 20 mg PO DAILY 02/17/19 02/17/19 History levothyroxine 75 mcg PO DAILY 02/17/19 02/17/19 History lisinopril 5 mg PO DAILY 02/17/19 02/17/19 History metformin 1,000 mg PO BID 02/17/19 02/17/19 History metoprolol tartrate 50 mg PO BID 02/17/19 02/17/19 History omeprazole 20 mg PO DAILY 02/17/19 02/17/19 History ondansetron 1 tab TRANSLINGUAL Q8H PRN 02/17/19 02/17/19 History rosuvastatin [Crestor] 40 mg PO DAILY 02/17/19 02/17/19 History triamcinolone acetonide 1 applic TOPICAL BID 02/17/19 02/17/19 History triamterene-hydrochlorothiazid 1 cap PO DAILY 02/17/19 02/17/19 History Allergies Allergy/AdvReac Type Severity Reaction Status Date / Time No Known Allergies Allergy Verified 02/17/19 13:52 Past Med/Surg History Medical History Volvulus of stomach Diabetic neuropathy (Chronic) Diabetic retinopathy (Chronic) Hypothyroidism (Chronic) HLD (hyperlipidemia) (Chronic) HTN (hypertension) (Chronic) CAD (coronary artery disease) (Chronic) mild to moderate obstructive disease per left heart cath GERD (gastroesophageal reflux disease) (Chronic) Hiatal hernia (Chronic) Diverticulosis (Chronic) Senile osteoporosis (Chronic) Breast cancer, right (Chronic) PVD (peripheral vascular disease) (Chronic) Diabetes (Chronic) Surgical History History of colonoscopy with polypectomy (Chronic) History of esophagogastroduodenoscopy (EGD) (Chronic) erosive gastropathy History of partial mastectomy of right breast (Chronic) History of arthroscopy of knee (Chronic) Family History Mother Coronary heart disease Father Alzheimer disease Sister Diabetes Coronary heart disease Brother Coronary heart disease Other Family history non-contributory Social History Preferred Language: Pakistani Communication Ability: Effective marital status: Current Living Situation: Spouse current occupational status: retired Feels Safe at Home: Yes Smoking Status: Never smoker Do You Dip or Chew Tobacco: No Hx Alcohol Use: No Hx Substance Use: No Review of Systems See HPI for pertinent positives & negatives. and A total of 10 systems reviewed and were otherwise negative Physical Exam Vital Signs Vital Signs - 24 hr 02/17/19 11:25 02/17/19 13:20 02/17/19 14:34 Temperature 36.9 C Temperature Source Oral Sepsis Recent Fever Within 48 Hours No Sepsis New/Unexplained Change in Mental Status No Sepsis Action Taken by Nursing No Action Required Pulse Rate 114 H Pulse Rate [Apical] Pulse Rate [Finger] 103 H 109 H Pulse Rate from SpO2 Sensor Pulse Rhythm [Apical] Respiratory Rate 20 16 16 Respiratory Effort / Characteristics Respiratory Depth Respiratory Pattern Blood Pressure 114/76 Blood Pressure [Left Arm] Blood Pressure [Right Arm] 136/81 132/88 Blood Pressure Mean 88 Blood Pressure Mean [Left Arm] Blood Pressure Mean [Right Arm] 99 102 Blood Pressure Position [Left Arm] Pulse Oximetry 93 92 94 Oxygen Delivery Method Room Air Room Air Room Air 02/17/19 15:23 02/17/19 15:26 02/17/19 15:30 Temperature Temperature Source Sepsis Recent Fever Within 48 Hours Sepsis New/Unexplained Change in Mental Status Sepsis Action Taken by Nursing Pulse Rate 112 H 107 H 103 H Pulse Rate [Apical] Pulse Rate [Finger] Pulse Rate from SpO2 Sensor 111 H 106 H 103 H Pulse Rhythm [Apical] Respiratory Rate 20 20 21 Respiratory Effort / Characteristics Respiratory Depth Respiratory Pattern Blood Pressure 135/93 Blood Pressure [Left Arm] Blood Pressure [Right Arm] Blood Pressure Mean 107 Blood Pressure Mean [Left Arm] Blood Pressure Mean [Right Arm] Blood Pressure Position [Left Arm] Pulse Oximetry 92 92 93 Oxygen Delivery Method 02/17/19 15:31 02/17/19 16:00 02/17/19 16:10 Temperature Temperature Source Sepsis Recent Fever Within 48 Hours Sepsis New/Unexplained Change in Mental Status Sepsis Action Taken by Nursing Pulse Rate 97 H 110 H 110 H Pulse Rate [Apical] Pulse Rate [Finger] Pulse Rate from SpO2 Sensor 97 H 111 H 111 H Pulse Rhythm [Apical] Respiratory Rate 22 20 19 Respiratory Effort / Characteristics Respiratory Depth Respiratory Pattern Blood Pressure 130/73 137/77 Blood Pressure [Left Arm] Blood Pressure [Right Arm] Blood Pressure Mean 92 97 Blood Pressure Mean [Left Arm] Blood Pressure Mean [Right Arm] Blood Pressure Position [Left Arm] Pulse Oximetry 92 92 93 Oxygen Delivery Method 02/17/19 17:00 02/17/19 17:42 Temperature 36.9 C Temperature Source Oral Sepsis Recent Fever Within 48 Hours Sepsis New/Unexplained Change in Mental Status Sepsis Action Taken by Nursing Pulse Rate Pulse Rate [Apical] 108 H 102 H Pulse Rate [Finger] Pulse Rate from SpO2 Sensor Pulse Rhythm [Apical] Regular Regular Respiratory Rate 16 16 Respiratory Effort / Characteristics Non-Labored Spontaneous Non-Labored Spontaneous Respiratory Depth Normal Normal Respiratory Pattern Regular Regular Blood Pressure Blood Pressure [Left Arm] 122/72 132/72 Blood Pressure [Right Arm] Blood Pressure Mean Blood Pressure Mean [Left Arm] 88 92 Blood Pressure Mean [Right Arm] Blood Pressure Position [Left Arm] Sitting Semi-fowlers Pulse Oximetry 94 92 Oxygen Delivery Method Room Air Room Air GENERAL: Sitting up in bed, ill-appearing, no distress, non-toxic, holding a emesis bag with coffee ground emesis. EYE EXAM: normal conjunctiva, PERRL and EOM's grossly intact OROPHARYNX: no exudate, no erythema, lips, buccal mucosa, and tongue normal and mucous membranes are moist NECK: supple, no nuchal rigidity, no adenopathy, non-tender LUNGS: Clear to auscultation. Normal chest wall mechanics HEART: no murmurs, S1 normal and S2 normal ABDOMEN: abdomen soft, diffusely tender, normo-active bowel sounds, no masses, no rebound or guarding. BACK: Back is symmetrical on inspection and there is no deformity, no midline tenderness, no CVA tenderness. SKIN: no rashes and no bruising UPPER EXTREMITIES: upper extremities are grossly normal. LOWER EXTREMITIES: No pitting edema. NEURO EXAM: Normal sensorium, cranial nerves II-XII grossly intact, normal speech, no gross weakness of arms, no gross weakness of legs. Course ED COURSE: Vital signs were reviewed and showed tachycardia. The patients medical record was reviewed The above diagnostic studies were performed and reviewed. ED treatments and interventions as stated above. 1256: The patient was evaluated in room A11B. A complete history and physical examination was performed. 1509: I updated the patient on her current results. The patient is on her way to CT at this time. 1519: I discussed the patient's case with CHERYL Houston, who will evaluate the patient for further management and care with Dr. Hammer as the attending physician. 1531: I discussed the patient's case with Dr. Carrion, General Surgery, who recommended that the patient be evaluated by a GI specialist. 1606: I discussed the patient's case with Dr. Segovia, GI, who will take the patient to the Operating Room. 1615: Upon reevaluation, the patient is resting comfortably.I discussed my findings with the patient and she understands and agrees with the treatment plan . Based on the patients age, coexisting illnesses, exam and lab findings the decision to treat as an inpatient was made. The patient remained stable while under my care. The patient will be evaluated for further management. Consultations Consultation #1: I discussed the patient's case with CHERYL Houston, who will evaluate the patient for further management and care with Dr. Hammer as the attending physician. Time: 15:19 Consultation #2: I discussed the patient's case with Dr. Carrion, General Surgery, who recommended that the patient be evaluated by a GI specialist. Time: 15:31 Consultation #3: I discussed the patient's case with Dr. Segovia, GI, who will take the patient to the Operating Room. Time: 16:06 Administered Medications Insulin Human Regular 250 (units/ Sodium Chloride) 250 mls @ 4 mls/hr IV .Q24H GILMA; Protocol Stop: 03/19/19 14:29 Last Admin: 02/17/19 16:31 Dose: 4 units/hr, 4 mls/hr Documented by: [id number] Cosigned by: [id number] Discontinued Medications Famotidine (Pepcid 20mg Iv Push) 20 mg IV ONE STA Stop: 02/17/19 13:27 Last Admin: 02/17/19 13:51 Dose: 20 mg Documented by: [id number] Sodium Chloride (Nss 1000ml) 1,000 mls @ 999 mls/hr IV .Q1H1M GILMA Stop: 02/17/19 14:00 Last Infusion: 02/17/19 14:54 Dose: 0 mls/hr Documented by: [id number] Admin: 02/17/19 13:52 Dose: 999 mls/hr Documented by: [id number] Pantoprazole Sodium 80 mg/ (Dextrose) 120 mls @ 480 mls/hr IV NOW STA Stop: 02/17/19 15:36 Last Infusion: 02/17/19 16:14 Dose: 0 mls/hr Documented by: [id number] Admin: 02/17/19 15:57 Dose: 480 mls/hr Documented by: [id number] Sodium Chloride (Nss 1000ml) 1,000 mls @ 999 mls/hr IV .Q1H1M ONE Stop: 02/17/19 17:06 Last Admin: 02/17/19 16:12 Dose: 999 mls/hr Documented by: [id number] Insulin Human Regular (Novolin R Bolus From Bag) 7 units IV ONE ONE Stop: 02/17/19 16:16 Last Admin: 02/17/19 16:31 Dose: 7 units Documented by: [id number] Cosigned by: [id number] Ondansetron HCl (Zofran) 4 mg IV NOW STA Stop: 02/17/19 13:00 Last Admin: 02/17/19 14:34 Dose: 4 mg Documented by: [id number] Ondansetron HCl (Zofran Odt) 4 mg PO NOW STA Stop: 02/17/19 13:27 Last Admin: 02/17/19 13:50 Dose: 4 mg Documented by: [id number] Ondansetron HCl (Zofran) 4 mg IV NOW STA Stop: 02/17/19 15:19 Last Admin: 02/17/19 15:28 Dose: 4 mg Documented by: [id number] Medical Decision Making Differential Diagnosis Differential diagnoses includes but is not limited to gastritis, peptic ulcer disease, GERD, gallbladder disease, pancreatitis, small bowel obstruction, acute coronary syndrome, pericarditis, ischemic bowel, irritable bowel disease, irritable bowel syndrome, appendicitis, diverticulitis, malignancy, hernia, urinary tract infection, torsion, perforation, trauma, infectious. Medical Records Attestation: I reviewed the patient's medical records. Home Medications Current Medication List: was personally reviewed by me Laboratory Data Attestation: I reviewed the patient's lab results. Result diagrams: 02/17/19 13:31 02/17/19 13:31 Lab Results 02/17/19 02/17/19 02/17/19 Range/Units 13:31 13:31 13:31 WBC 27.82 H (4.8-10.8) K/uL RBC 5.81 H (4.2-5.4) M/uL Hgb 17.4 H (12.0-16.0) g/dL Hct 51.6 H (37-47) % MCV 88.8 (80-100) fL MCH 29.9 (25-34) pg MCHC 33.7 (32-36) g/dL RDW Std Deviation 50.1 H (36.4-46.3) fL RDW Coeff of Blaire 15.5 H (11.5-14.5) % Plt Count 405 H (130-400) K/uL MPV 9.8 (7.4-10.4) fL Immature Gran % (Auto) 0.5 % Neut % (Auto) 87.8 % Lymph % (Auto) 7.7 % Miller % (Auto) 3.9 % Eos % (Auto) 0.0 % Baso % (Auto) 0.1 % Immature Gran # (Auto) 0.13 H (0.00-0.02) K/uL Neut # (Auto) 24.46 H (1.4-6.5) K/uL Lymph # (Auto) 2.13 (1.2-3.4) K/uL Miller # (Auto) 1.08 H (0.11-0.59) K/uL Eos # (Auto) 0.00 (0-0.5) K/uL Baso # (Auto) 0.02 (0-0.2) K/uL Sodium 137 (136-145) mmol/L Potassium 4.1 (3.5-5.1) mmol/L Chloride 100 (98-107) mmol/L Carbon Dioxide 21 (21-32) mmol/L Anion Gap 16.0 H (3-11) BUN 52 H (7-18) mg/dl Creatinine 2.02 H (0.6-1.2) mg/dl Est Cr Clr Drug Dosing Not Reportable Est GFR ( Amer) 27.5 Est GFR (Non-Af Amer) 23.7 BUN/Creatinine Ratio 26.0 H (10-20) Glucose 585 H* (70-99) mg/dl POC Glucose (70-99) Calcium 9.6 (8.5-10.1) mg/dl Total Bilirubin 0.6 (0.2-1) mg/dl AST 17 (15-37) U/L ALT 26 (12-78) U/L Alkaline Phosphatase 100 (45-117) U/L Total Protein 8.6 H (6.4-8.2) gm/dl Albumin 3.7 (3.4-5.0) gm/dl Globulin 4.9 H (2.5-4.0) gm/dl Albumin/Globulin Ratio 0.8 L (0.9-2) Lipase 270 (73-393) U/L Beta-Hydroxybutyric Acd 60.17 H (0.2-2.81) mg/dl Blood Type O Positive Antibody Screen NEGATIVE Crossmatch 02/17/19 02/17/19 Range/Units 17:05 17:55 WBC (4.8-10.8) K/uL RBC (4.2-5.4) M/uL Hgb (12.0-16.0) g/dL Hct (37-47) % MCV (80-100) fL MCH (25-34) pg MCHC (32-36) g/dL RDW Std Deviation (36.4-46.3) fL RDW Coeff of Blaire (11.5-14.5) % Plt Count (130-400) K/uL MPV (7.4-10.4) fL Immature Gran % (Auto) % Neut % (Auto) % Lymph % (Auto) % Miller % (Auto) % Eos % (Auto) % Baso % (Auto) % Immature Gran # (Auto) (0.00-0.02) K/uL Neut # (Auto) (1.4-6.5) K/uL Lymph # (Auto) (1.2-3.4) K/uL Miller # (Auto) (0.11-0.59) K/uL Eos # (Auto) (0-0.5) K/uL Baso # (Auto) (0-0.2) K/uL Sodium (136-145) mmol/L Potassium (3.5-5.1) mmol/L Chloride (98-107) mmol/L Carbon Dioxide (21-32) mmol/L Anion Gap (3-11) BUN (7-18) mg/dl Creatinine (0.6-1.2) mg/dl Est Cr Clr Drug Dosing Est GFR ( Amer) Est GFR (Non-Af Amer) BUN/Creatinine Ratio (10-20) Glucose (70-99) mg/dl POC Glucose 441 H* (70-99) Calcium (8.5-10.1) mg/dl Total Bilirubin (0.2-1) mg/dl AST (15-37) U/L ALT (12-78) U/L Alkaline Phosphatase (45-117) U/L Total Protein (6.4-8.2) gm/dl Albumin (3.4-5.0) gm/dl Globulin (2.5-4.0) gm/dl Albumin/Globulin Ratio (0.9-2) Lipase (73-393) U/L Beta-Hydroxybutyric Acd (0.2-2.81) mg/dl Blood Type Antibody Screen Crossmatch See Detail Imaging Data Radiologist's Impression: Radiology results as stated below per my review and the radiologist's interpretation: ABDOMEN AND PELVIS CT WITHOUT CONTRAST CT DOSE: 587.67 mGy.cm HISTORY: Acute abdominal pain with emesis abd pain vomiting TECHNIQUE: Multiaxial CT images of the abdomen and pelvis were performed without contrast. A dose lowering technique was utilized adhering to the principles of ALARA. COMPARISON STUDY: None. FINDINGS: Linear subsegmental groundglass opacities of the left lung base suggest atelectasis and/or scarring. Right lung base is generally clear. No pneumatosis or pneumoperitoneum. Imaged inferior cardiac chambers are mildly enlarged with coronary arterial calcifications noted. There are large gallstones noted about the gallbladder lumen without CT evidence of acute cholecystitis. No biliary ductal dilation. Hepatic steatosis. No evidence of cirrhosis or focal hepatic mass lesion. The spleen appears unremarkable. Mild right and moderate left adrenal gland thickening. Mild inflammatory stranding is noted about the distal pancreatic body and tail. Pancreas otherwise appears unremarkable. Mild nonspecific left perinephric stranding. Right kidney and bilateral ureters are unremarkable. Urinary bladder, uterus and adnexa are within normal limits. Extensive calcification of the aorta without aneurysm. No adenopathy. 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 The stomach is moderately fluid distended. The distal stomach and duodenum are decompressed. There is no small bowel obstruction. Colonic diverticulosis without acute diverticulitis. The majority of the large bowel is decompressed. The terminal ileum and appendix appear normal. No drainable fluid collection. Soft tissues appear unremarkable. Degenerative changes of the pelvis, hips and spine. Demineralized appearance of the bones without acute fracture or suspicious bone lesion identified. IMPRESSION: 1. Moderately distended stomach with large hiatal hernia and suggested organoaxial gastric volvulus. Correlate clinically to exclude gastric outlet obstruction. 2. Mild inflammatory stranding about the distal pancreatic body and tail. Correlate with lipase level to exclude acute pancreatitis. 3. Cholelithiasis without CT evidence of acute cholecystitis or biliary ductal dilation. 4. Colonic diverticulosis without definite CT evidence of acute diverticulitis. 5. Normal appendix. 6. Hepatic steatosis. 7. Additional findings as above. Electronically signed by: Tariq Medina M.D. 02/17/2019 3:31 PM Blood Pressure Blood Pressure Findings: Normal blood pressure MDM Narrative Patient is a 73-year-old female with epigastric abdominal pain is been vomiting. She does have some hematemesis. She has some mild diffuse abdominal pain in the epigastric/left upper quadrant region. Labs were obtained and showed a leukocytosis of 28,000. Hemoglobin was 17. INR was unremarkable. With an anion gap and a glucose in the 500s. Patient was given 3 L IV fluids. Patient was given IV potassium along with an IV insulin bolus and insulin drip. CT abdomen pelvis showed volvulus of the stomach. Discussed with general surgery who recommended transfer versus thoracic. Did discuss with GI and thoracic surgery and patient was taken to the OR by thoracic surgery. Patient was monitored closely while in the ER. Patient was updated bedside and taken to the OR. Patient was typed and screened due to the hematemesis. Patient was also given IV famotidine. Did also discussed the case with the ICU resident. Impression & Plan Acute gastric volvulus, DKA (diabetic ketoacidoses), Hematemesis, Leukocytosis, Acute kidney injury Critical Care Time I have personally spent 35 minutes of critical care time in the direct management of this patient. This includes bedside care, interpretation of diagnostic studies, and testing, discussion with consultants, patient, and family members, and other required patient management activities. This 35 minutes is in excess of all separately billable procedures. Critical Care Time: Yes Total Critical Care Time: 35 Discharge Plan Visit Data *Final* Discharge Date/Time: 02/17/19 16:50 Chief Complaint: Abnormal Labs/Diagnostic Testing Stated Complaint: PANCREATITIS ED Provider: Tan Chen Discharge Problem: Acute gastric volvulus, DKA (diabetic ketoacidoses), Hematemesis, Leukocytosis, Acute kidney injury Patient Disposition: Admitted As Inpatient Discharge Instructions Interventions: ED Discharge Assessment Last Done: 02/17/19 16:50 The scribe's documentation has been prepared under my direction and personally reviewed by me in its entirety. I confirm that the note above accurately reflects all work, treatment, procedures, and medical decision making performed by me.
[2019-02-17 18:30] LABS: Prothrombin Time 10.6 Seconds (9.0-12.0)
[2019-02-17 18:44] LABS: Albumin Level 3.3 gm/dl (3.4-5.0); BUN Creatinine Ratio 28.5 (10-20); Bilirubin Direct 0.1 mg/dl (0-0.2); Bilirubin,Total 0.4 mg/dl (0.2-1); Calcium 8.8 mg/dl (8.5-10.1); Creatinine Clr Calc Pharmacy 28.8 ml/min; Est GFR (African American) 33.4; Est GFR (Non-African American) 28.8; Magnesium 2.7 mg/dl (1.8-2.4); Phosphorus 2.5 mg/dl (2.5-4.9); Potassium 3.6 mmol/L (3.5-5.1); Total Protein 7.6 gm/dl (6.4-8.2); Troponin I 0.039 ng/ml (0-0.045)
[2019-02-17] MEDS ORDERED: POTASSIUM CHLORIDE 20 MEQ in SODIUM CHLORIDE 0.45 % 1,000 ML IV SCH (18:46)
[2019-02-17] MEDS ORDERED: PIPERACILL/TAZOBAC CONSULT ACTIVE PRN (18:46)
[2019-02-17] MEDS ORDERED: MODERATE STRESS LEVEL ONE (18:46)
[2019-02-17] MEDS ORDERED: PENDING D5 1/2NS+20mEq KCL IVF SCH (18:46)
[2019-02-17] MEDS ORDERED: INSULIN REGULAR 250 UNITS in SODIUM CHLORIDE 0.9% 247.5 ML IV SCH (18:46)
[2019-02-17] MEDS ORDERED: fentaNYL citrate 100 MCG/2 ML VIAL IV PRN ×2 (18:46)
[2019-02-17] MEDS ORDERED: ICU PROTOCOL FOR HYPERGLYCEMIA PRN (18:46)
[2019-02-17] MEDS: NORMOSOL-R 1,000 ML IV SCH ×3 (18:56→22:30)
[2019-02-17 18:57] LABS: Beta-Hydroxybutyrate 34.2 mg/dl (0.2-2.81)
[2019-02-17] MEDS ORDERED: PIPERACILLIN/TAZOBACTAM 4.5 GM in DEXTROSE 5% 100 ML IV ONE (20:00)
[2019-02-17 20:07] LABS: Appearance Urine Clear (Clear); Bacteria Urine Automated 2+ (Negative); Bilirubin Urine Negative (Negative); Blood Urine 2+ (Negative); Color Urine Yellow; Epithelial Cell Urine Auto >30 /lpf (0-5); Glucose Urine UA 3+ (Negative); Ketones Urine 1+ (Negative); Leukocyte Esterase Urine Negative (Negative); Nitrite Urine Negative (Negative); Protein Urine 2+ (Negative); RBC Urine Automated 0-4 /hpf (0-4); Specific Gravity Urine 1.032 (1.000-1.030); Urobilinogen Urine Negative (Negative)
--- NOTE | 2019-02-17 20:14 | Cardiology Consultation ---
Date of Consultation February 17, 2019 Assessment & Plan (1) Abnormal EKG: (2) Acute gastric volvulus: Patient had findings on her EKG suggestive of of a acute inferior wall myocardial infarction. She has no helen symptoms suggestive of angina. Her presenting symptoms are certainly consistent with her known gastric volvulus with inability to tolerate solids and liquids and coffee-ground emesis. A stat bedside transthoracic echocardiogram was performed revealing hyperdynamic left ventricular systolic function with ejection fraction of greater than 70%. The right ventricular chamber size and systolic function were also normal. She has had symptoms for days and her troponin is within normal limits at 0.039 on initial measurement. At this time, I believe her EKG is likely a marker of strain due to her underlying illness rather than acute intra-coronary plaque rupture. Agree with plans to optimize her from a blood pressure, volume standpoint, and metabolic standpoint, prior to consideration of proceeding to the operating room. Need for emergent surgery may arise if she has worsening abdominal pain increasing lactate level. Results discussed with Dr. Cox in the ICU who was at the bedside during the echocardiogram. History of Present Illness Attending Physician: Brunilda Kathleen MD History of Present Illness Monique Galicia is a 73 year old female seen in cardiology consultation per the request of Dr Hammer for the evaluation of an abnormal EKG. The patient was most recently seen in outpatient cardiology clinic on 10/02/2018 at which time stable cardiac signs and symptoms were noted. She presented to the emergency department today due to intractable nauseousness and vomiting x2 days duration. She has had coffee-ground emesis and inability to tolerate liquids or solids. She has had left-sided abdominal pain that is waxed and waned. A CT of the abdomen pelvis had been performed earlier this afternoon which revealed a moderately distended stomach with large hiatal hernia and gastric volvulus. Other abnormalities included a leukocytosis with WBC count of 27.82, hyperglycemia with initial glucose in excess of 600, acute kidney injury with initial creatinine of 2.02 (trended down to 1.72), lactic acidosis with lactate level of 2.1. Consideration was made toward emergent thoracic surgery, however an EKG was performed at 1709 that revealed sinus rhythm at 95 bpm, and mild ST segment elevation was noted in the inferior leads II, III and aVF. T wave inversions were also noted in leads V2 to V4. Repeat EKG was performed at 1740 with ongoing changes although less prominent than on the initial EKG. The inferior repolarization changes were new compared to her prior outpatient EKG which I reviewed dated 10/01/2017. Her surgery was placed on hold and she was instead admitted to the intensive care unit. She was received fluid resuscitation, central line was placed as well as an arterial line. Her blood pressure is since improved. At one point she had a systolic blood pressure of 89 mmHg, and now she is actually hypertensive. Past Cardiac History: 1. Subtle ST segment abnormalities on EKG in the remote past lead to diagnostic cardiac catheterization February 2009 demonstrating moderate early atherosclerosis with a smooth 40% narrowing of the proximal LAD had mild luminal irregularities in the remaining vessels. The left ventricular systolic function was noted to be hyperdynamic at that time with elevated systolic and diastolic pressures consistent with hypertension and hypertensive heart disease 2. Type 2 diabetes mellitus Dyslipidemia Allergies Allergy/AdvReac Type Severity Reaction Status Date / Time No Known Allergies Allergy Verified 02/17/19 13:52 Home Medications Home Medications Medication Instructions Recorded Confirmed Type alendronate 70 mg PO WK 02/17/19 02/17/19 History amlodipine 5 mg PO DAILY 02/17/19 02/17/19 History aspirin [Aspirin Low Dose] 81 mg PO DAILY 02/17/19 02/17/19 History cholecalciferol (vitamin D3) 2,000 unit PO DAILY 02/17/19 02/17/19 History [Vitamin D3] diclofenac sodium 1 applic TOPICAL Q6H PRN 02/17/19 02/17/19 History empagliflozin [Jardiance] 10 mg PO DAILY 02/17/19 02/17/19 History ferrous sulfate 1 tab PO BID 02/17/19 02/17/19 History glipizide 20 mg PO DAILY 02/17/19 02/17/19 History levothyroxine 75 mcg PO DAILY 02/17/19 02/17/19 History lisinopril 5 mg PO DAILY 02/17/19 02/17/19 History metformin 1,000 mg PO BID 02/17/19 02/17/19 History metoprolol tartrate 50 mg PO BID 02/17/19 02/17/19 History omeprazole 20 mg PO DAILY 02/17/19 02/17/19 History ondansetron 1 tab TRANSLINGUAL Q8H PRN 02/17/19 02/17/19 History rosuvastatin [Crestor] 40 mg PO DAILY 02/17/19 02/17/19 History triamcinolone acetonide 1 applic TOPICAL BID 02/17/19 02/17/19 History triamterene-hydrochlorothiazid 1 cap PO DAILY 02/17/19 02/17/19 History Patient History Medical History Volvulus of stomach Diabetic neuropathy (Chronic) Diabetic retinopathy (Chronic) Hypothyroidism (Chronic) HLD (hyperlipidemia) (Chronic) HTN (hypertension) (Chronic) CAD (coronary artery disease) (Chronic) mild to moderate obstructive disease per left heart cath GERD (gastroesophageal reflux disease) (Chronic) Hiatal hernia (Chronic) Diverticulosis (Chronic) Senile osteoporosis (Chronic) Breast cancer, right (Chronic) PVD (peripheral vascular disease) (Chronic) Diabetes (Chronic) Surgical History History of colonoscopy with polypectomy (Chronic) History of esophagogastroduodenoscopy (EGD) (Chronic) erosive gastropathy History of partial mastectomy of right breast (Chronic) History of arthroscopy of knee (Chronic) Family History Mother Coronary heart disease Father Alzheimer disease Sister Diabetes Coronary heart disease Brother Coronary heart disease Other Family history non-contributory Social History Preferred Language: Faroese Communication Ability: Effective marital status: Current Living Situation: Spouse current occupational status: retired Feels Safe at Home: Yes Smoking Status: Never smoker Do You Dip or Chew Tobacco: No Hx Alcohol Use: No Hx Substance Use: No Physical Exam Constitutional: + ill appearing Respiratory: normal respiratory effort, lungs clear to auscultation Cardiovascular: RRR, no murmur, no edema Heart Sounds: no murmur Extremities: no edema Gastrointestinal (Abdomen): Inspection/Auscultation: + abdomen distended Percussion/Palpation: + abdomen tender; no ascites Neurologic: moves all extremities; no focal motor deficits No focal deficits, conversant Results & Data Vital Signs (Past 12 Hours) Vital Signs Temp Pulse Pulse Pulse Resp BP BP 02/17/19 18:46 97 H 18 135/52 L 02/17/19 18:33 36.8 C 111 H 19 89/68 L 02/17/19 17:42 102 H 16 132/72 02/17/19 17:00 36.9 C 108 H 16 122/72 02/17/19 16:10 110 H 19 137/77 02/17/19 16:00 110 H 20 02/17/19 15:31 97 H 22 130/73 02/17/19 15:30 103 H 21 02/17/19 15:26 107 H 20 02/17/19 15:23 112 H 20 135/93 02/17/19 14:34 109 H 16 02/17/19 13:20 103 H 16 02/17/19 11:25 36.9 C 114 H 20 114/76 BP Pulse Ox 02/17/19 18:46 94 02/17/19 18:33 94 02/17/19 17:42 92 02/17/19 17:00 94 02/17/19 16:10 93 02/17/19 16:00 92 02/17/19 15:31 92 02/17/19 15:30 93 02/17/19 15:26 92 02/17/19 15:23 92 02/17/19 14:34 132/88 94 02/17/19 13:20 136/81 92 02/17/19 11:25 93 Laboratory Results Cardiac Enzymes 02/17/19 02/17/19 Range/Units 13:31 17:55 AST 17 16 (15-37) U/L Troponin I 0.039 (0-0.045) ng/ml Coagulation 02/17/19 Range/Units 17:55 PT 10.6 (9.0-12.0) Seconds CBC 02/17/19 Range/Units 13:31 WBC 27.82 H (4.8-10.8) K/uL RBC 5.81 H (4.2-5.4) M/uL Hgb 17.4 H (12.0-16.0) g/dL Hct 51.6 H (37-47) % Plt Count 405 H (130-400) K/uL Neut # (Auto) 24.46 H (1.4-6.5) K/uL Lymph # (Auto) 2.13 (1.2-3.4) K/uL Denali # (Auto) 1.08 H (0.11-0.59) K/uL Eos # (Auto) 0.00 (0-0.5) K/uL Baso # (Auto) 0.02 (0-0.2) K/uL Comprehensive Metabolic Panel 02/17/19 02/17/19 Range/Units 13:31 17:55 Sodium 137 (136-145) mmol/L Potassium 4.1 3.6 (3.5-5.1) mmol/L Chloride 100 110 H (98-107) mmol/L Carbon Dioxide 21 22 (21-32) mmol/L BUN 52 H 49 H (7-18) mg/dl Creatinine 2.02 H 1.72 H D (0.6-1.2) mg/dl Glucose 585 H* 420 H* (70-99) mg/dl Calcium 9.6 8.8 (8.5-10.1) mg/dl Direct Bilirubin 0.1 (0-0.2) mg/dl AST 17 16 (15-37) U/L ALT 26 25 (12-78) U/L Alkaline Phosphatase 100 87 (45-117) U/L Total Protein 8.6 H 7.6 (6.4-8.2) gm/dl Albumin 3.7 3.3 L (3.4-5.0) gm/dl Intake and Output 02/17/19 02/17/19 02/17/19 06:59 14:59 22:59 Intake Total 1000 / 1133.733 133.733 / 1133.733 Balance 1000 / 1133.733 133.733 / 1133.733 Intake: IV 1000 / 1133.733 133.733 / 1133.733 NovoLIN R 250 UNITS In Nss 247. 13.733 / 13.733 5 ml @ 4 UNITS/HR 4 mls/hr IV . Q24H [facility] Rx#:[id number] Protonix 80 mg In D5 100 ml @ 120 / 120 480 mls/hr IV NOW STA Rx#: [id number] Nss 1000ML 1,000 ml @ 999 mls/ 1000 / 1000 hr IV .Q1H1M [facility] Rx#:[id number] Other: Weight 87.4 kg Patient Weight 02/18/19 06:59 Weight 87.4 kg
[2019-02-17] MEDS ORDERED: METOPROLOL TARTRATE 1 MG/ML VIAL IV STA (20:20)
--- NOTE | 2019-02-17 20:58 | Procedure Note ---
Procedure Note Date of Service February 17, 2019 Procedure Note Procedure Name: A line placement Procedure time out: Patient name and left side for site placement was verified Consent obtained: Risks and benefits of the procedure were discussed, written consent was obtained Performed by: Dr. Cox Indications: diagnostic Contraindications: none Description: The patient was placed in supine position, left radial artery was visualized under ultrasound guidance. The skin was prepped with chlorhexidine and draped to create a sterile field. Using ultrasound guidance and Seldinger technique, the artery was accessed and line advanced. Line was secured with 1 suture, covered with surgical dressing/tegaderm. Complications: none Patient tolerated procedure: well Coding Resident Activity Tracking Resident Involvement: Resident Care Provided Care Provided: Adult [facility]
--- NOTE | 2019-02-17 21:07 | Procedure Note ---
Procedure Note Date of Service February 17, 2019 Procedure Note Procedure: Right IJ Central Line Placement Reason for procedure: Central line was placed due to lack of adequate IV access in this patient. Consent: Risks and procedures were explained to the patient. Patient and family agreed to the procedure and written consent was obtained.. The patient was placed in supine position. Under strict sterile field, the skin was prepped with chlorhexidine, pt was draped in the usual fashion. Under ultrasound guidance the right IJ was visualized. Approximately 5 cc of 1% lidocaine was injected using sterile technique. Under ultrasound guidance the right IJ was accessed and placement was confirmed both ultrasound and needle aspiration of venous blood. Wire was advanced and an access incision was made along with half of the wire using a scalpel. A dilator was successfully advanced. A triple-lumen central line was then introduced over the wire and placed to 20 cm. All ports were flushed with normal saline. The line was secured using 2 sutures and a device clip and then covered with Tegaderm. Chest x-ray ordered to confirm placement of the catheter at the SVC. Patient tolerated the procedure well without any complications The procedure was done by myself with the assistance and supervision of Dr. Cox who was present throughout the entire procedure. Procedure Date: Noted Above Procedure: Procedural Ultrasound Indication: Central venous access Attending: Daiana Cox DO Resident/Physician Composite Layup Worker: Venkat Artery visualized: Yes Vein visualized: Yes Compressible Vein: Yes Vein patent: Yes Guidewire or Short Catheter seen in vein prior to dilation: Yes Line confirmed in Vein with ultrasound: Yes Lung Sliding on side of attempt (if applicable): NA If no lung sliding or not obtained has CXR been ordered: Yes Impression: Successful central venous access placement Images obtained are saved for permanent record Coding Resident Activity Tracking Resident Involvement: Resident Care Provided Care Provided: [facility]
--- NOTE | 2019-02-17 21:21 | XRay Report ---
KUB CLINICAL HISTORY: Feeding Tube placement COMPARISON STUDY: CT of the abdomen and pelvis performed earlier today. FINDINGS: Incidental note is made of gallstones. There is a relative paucity small bowel gas. The tip of the nasogastric tube projects over the lower mediastinum, likely within the intrathoracic portion of the stomach within the known hiatal hernia shown on CT from earlier today. IMPRESSION: Nasogastric tube coiled with tip projecting over the lower mediastinum, likely within th e intrathoracic portion of the stomach with hiatal hernia. Electronically signed by: Agustin Linn M.D. 02/17/2019 9:20 PM
--- NOTE | 2019-02-17 21:28 | Critical Care Consultation ---
Date of Consultation February 17, 2019 Assessment & Plan (1) Admitted to intensive care unit: Reason Critically Ill: 73-year-old female with acute gastric volvulus found to have concerning EKG changes in the perioperative setting. DKA complicating clinical course. NEURO - * CAM ICU: NEGATIVE * Fentanyl as needed for pain. CARDIAC/VASCULAR - * Acute EKG changes with concern for STEMI: * Emergent Echo shows no regional wall motion abnormalities. Hyperdynamic left ventricular function w/ EF of >70%. Hyperdynamic Right ventricle noted. No valvular disease. * Cardiology more concerned w/ underlying strain pattern in the setting of hypovolemia and acute state of illness. * Patient does respond well to IVF. This may correlate to patient's EKG improvement w/ added preload in the setting of strain. * Troponins were initially negative. Will continue to trend. * Serial EKGs as needed. * Known LAD lesion per cardiology. * Monitor on telemetry. RESPIRATORY - * No h/o Pulmonary disease: * Monitor closely for volume overload in the setting of aggressive IVF resuscitation. * Supplemental O2 PRN GI/NUTRITION - * Acute Gastric Volvulus: * Complicated and likely 2/2 known hiatal hernia. * Lactate minimally elevated --> will trend to evaluate for possible progressive ischemia. Doubt substantial ischemia at this point and stomach w/ adequate collateral blood flow which should help maintain perfusion and decrease risk of progression to gastric ischemia. * NG tube in place for gastric decompression. * Thoracic surgery on board. Will continue to assess from a medical standpoint. No immediate surgery at this time, but may require so w/ any acute changes in s/s or elevation of serial lactate. * Suspected Upper GIB: * Likely related to above. * Continue Protonix gtt * Trend H&H * PRBCs as needed. * Prophylaxis: Protonix RENAL/LYTES - * REKHA: * Likely prerenal in the setting of hypovolemia from profound vomiting. * Aggressive IVF resuscitation. * Trend BMP. * Supplemental Lytes as needed. * Suspect electrolyte replacement requirement throughout the night w/ insulin gtt on board. * IVF: Normosol-R@200mL/hr - * Marie in place - Strict I&Os. ENDO - * DKA: * Insulin gtt per protocol. HEME - * Hemoconcentration noted on initial presentation: * Points toward profound hypovolemia. * Will trend after aggressive IVF resuscitation. ID - * Technically SIRS criteria: * Agree w/ antibiotics in the setting of acute gastric volvulus. * Suspect her symptoms may more be related to the profound hypovolemia rather than infectious source. * Trend fever curve. * Will add AM ProCal LINES/IV ACCESS - * PIVs x2 * RIGHT IJ * LEFT Rad Art Line * Marie DVT PROPHYLAXIS - * Hold in the setting of ??GIB * SCDs I have personally spent 45 minutes of critical care time in the direct management of this patient. This is a life/limb threatening event. This includes time spent evaluating patient, direct bedside care, chart review, placing orders, interpretation of diagnostic studies, discussion with consultants, patient, and family members, as well as other required patient management activities. This time is exclusive of all separately billable procedures, and teaching time and separate from and in addition to any other critical care service time. Thank you for allowing us to participate in the care of this patient. Please refer to my attending physician's documentation for any further recommendations. (2) Volvulus of stomach: (3) Abnormal EKG: (4) Acute gastric volvulus: (5) DKA (diabetic ketoacidoses): (6) Hypothyroidism: (7) CAD (coronary artery disease): (8) HTN (hypertension): (9) HLD (hyperlipidemia): (10) Hiatal hernia: (11) Diabetes: (12) Dehydration: Supervising Physician Co-Signing Physician Notes I have personally evaluated and examined this patient. I agree with assessment and plan of Clint Silva PA-C. I initially saw the patient in the PACU and began resuscitation before I transition care to Clint Silva. I discussed the case with Dr. Segovia. I also contacted Dr. Arora of cardiology and subsequently discussed the case with Dr. Bradley. We feel that the patient is under volume resuscitated at this point and the EKG changes are likely traffic representative of a type II ischemia instead of a true thrombus in the coronaries. We will continue aggressive resuscitative efforts. We will serially follow her labs to ensure there is no worsening of intestinal ischemia given the volvulus, a I physically placed the NG tube to facilitate gastric emptying which appears to be working. I have personally spent 55 minutes of critical care time in the direct management of this patient. This is a life/limb threatening event. This includes time spent evaluating patient, direct bedside care, chart review, placing orders, interpretation of diagnostic studies, discussion with consultants, patient, and/or family members regarding treatment decisions, as well as other required patient management activities. This time is exclusive of all separately billable procedures, and teaching time and separate from and in addition to any other critical care service time. History of Present Illness Attending Physician: Brunilda Kathleen MD Patient is a 73-year-old female with a significant past medical history of coronary disease, hypertension, hyperlipidemia, diabetes, and hiatal hernia who initially presented to the emergency department with a 3-day history of nausea and vomiting. She had developed some abdominal discomfort as well. While in the emergency department, CT scan of the an acute gastric outlet obstruction. The patient received aggressive IV fluids and antibiotics. In discussion with thoracic surgery, the patient was to be taken emergently for concerns for gastric volvulus. While in PACU, the patient was noted to have EKG changes concerning for acute STEMI. He was subsequently brought to the ICU where echocardiogram was performed which demonstrates no concerns for regional wall motion abnormalities. She was found to be somewhat hyperdynamic. She continues with IV fluid resuscitation. On evaluation in the ICU, the patient is drowsy, but awake and alert. She complains of some minimal epigastric discomfort. She denies any chest pain at this time. Allergies Allergy/AdvReac Type Severity Reaction Status Date / Time No Known Allergies Allergy Verified 02/17/19 13:52 Home Medications Home Medications Medication Instructions Recorded Confirmed Type alendronate 70 mg PO WK 02/17/19 02/17/19 History amlodipine 5 mg PO DAILY 02/17/19 02/17/19 History aspirin [Aspirin Low Dose] 81 mg PO DAILY 02/17/19 02/17/19 History cholecalciferol (vitamin D3) 2,000 unit PO DAILY 02/17/19 02/17/19 History [Vitamin D3] diclofenac sodium 1 applic TOPICAL Q6H PRN 02/17/19 02/17/19 History empagliflozin [Jardiance] 10 mg PO DAILY 02/17/19 02/17/19 History ferrous sulfate 1 tab PO BID 02/17/19 02/17/19 History glipizide 20 mg PO DAILY 02/17/19 02/17/19 History levothyroxine 75 mcg PO DAILY 02/17/19 02/17/19 History lisinopril 5 mg PO DAILY 02/17/19 02/17/19 History metformin 1,000 mg PO BID 02/17/19 02/17/19 History metoprolol tartrate 50 mg PO BID 02/17/19 02/17/19 History omeprazole 20 mg PO DAILY 02/17/19 02/17/19 History ondansetron 1 tab TRANSLINGUAL Q8H PRN 02/17/19 02/17/19 History rosuvastatin [Crestor] 40 mg PO DAILY 02/17/19 02/17/19 History triamcinolone acetonide 1 applic TOPICAL BID 02/17/19 02/17/19 History triamterene-hydrochlorothiazid 1 cap PO DAILY 02/17/19 02/17/19 History Patient History Medical History Volvulus of stomach Diabetic neuropathy (Chronic) Diabetic retinopathy (Chronic) Hypothyroidism (Chronic) HLD (hyperlipidemia) (Chronic) HTN (hypertension) (Chronic) CAD (coronary artery disease) (Chronic) mild to moderate obstructive disease per left heart cath GERD (gastroesophageal reflux disease) (Chronic) Hiatal hernia (Chronic) Diverticulosis (Chronic) Senile osteoporosis (Chronic) Breast cancer, right (Chronic) PVD (peripheral vascular disease) (Chronic) Diabetes (Chronic) Surgical History History of colonoscopy with polypectomy (Chronic) History of esophagogastroduodenoscopy (EGD) (Chronic) erosive gastropathy History of partial mastectomy of right breast (Chronic) History of arthroscopy of knee (Chronic) Family History Mother Coronary heart disease Father Alzheimer disease Sister Diabetes Coronary heart disease Brother Coronary heart disease Other Family history non-contributory Social History Preferred Language: Greenlandic Communication Ability: Effective Patient Financial Advocate Required: Yes Beliefs That Will Affect Care: None marital status: Current Living Situation: Spouse current occupational status: retired Other Information That Helps Us Care for You: No Feels Safe at Home: Yes Safety Concerns: Feels Safe At This Time Smoking Status: Never smoker Do You Dip or Chew Tobacco: No Hx Alcohol Use: No Hx Substance Use: No Review of Systems Review of Systems: A complete 10 point review of systems was reviewed with the patient with pertinent positives and negatives as per history of present illness. All else were negative. Physical Exam Physical Exam: VITAL SIGNS - Vital signs and nursing notes were reviewed. GENERAL - 73-year-old female appearing her stated age who is in no acute distress. Communicates well with provider and answers questions appropriately. SKIN - Without rashes. HEAD - NC/AT. EYES - PERRL with EOMI bilaterally. Sclera anicteric. EARS - No deformities of external structures noted on gross examination b ilaterally. NOSE - Midline and without cyanosis. MOUTH/OROPHARYNX - Without perioral cyanosis. NECK - Neck with FROM. No nuchal rigidity. LUNGS - Chest wall symmetric without accessory muscle use, intercostals retractions, or central cyanosis. Normal vesicular breath sounds CTA B/L. No wheezes, rales, or rhonchi appreciated. CARDIAC - RRR with S1/S2. No murmur, rubs, or gallops appreciated. ABDOMEN - Abdominal contour without pulsations or visible masses. BS hypoactive. Mild ttp in the epigastrium. EXTREMITIES - No clubbing or peripheral cyanosis. No pretibial edema present. +3/5 radial and dorsalis pedis pulses palpated throughout. NEUROLOGIC - Cranial nerves II through XII grossly intact. Sensory intact to light touch throughout. PSYCH - A&Ox3 and cooperates fully with examiner. Pt is very pleasant and interacts well with examiner. Results & Data Vital Signs (Past 12 Hours) Vital Signs Temp Pulse Pulse Pulse Resp BP BP 02/17/19 18:46 97 H 18 135/52 L 02/17/19 18:33 36.8 C 111 H 19 89/68 L 02/17/19 17:42 102 H 16 132/72 02/17/19 17:00 36.9 C 108 H 16 122/72 02/17/19 16:10 110 H 19 137/77 02/17/19 16:00 110 H 20 02/17/19 15:31 97 H 22 130/73 02/17/19 15:30 103 H 21 02/17/19 15:26 107 H 20 02/17/19 15:23 112 H 20 135/93 02/17/19 14:34 109 H 16 02/17/19 13:20 103 H 16 02/17/19 11:25 36.9 C 114 H 20 114/76 BP Pulse Ox 02/17/19 18:46 94 02/17/19 18:33 94 02/17/19 17:42 92 02/17/19 17:00 94 02/17/19 16:10 93 02/17/19 16:00 92 02/17/19 15:31 92 02/17/19 15:30 93 02/17/19 15:26 92 02/17/19 15:23 92 02/17/19 14:34 132/88 94 02/17/19 13:20 136/81 92 02/17/19 11:25 93 (1) DKA (diabetic ketoacidoses) Diabetes mellitus complication detail: without coma Diabetes mellitus type: other specified (including PAULA) Qualified Code(s): E13.10 - Other specified diabetes mellitus with ketoacidosis without coma
--- NOTE | 2019-02-17 21:39 | XRay Report ---
XR chest 1V portable CLINICAL HISTORY: confirm IJ central line placement in SVC COMPARISON STUDY: None. FINDINGS: There is no pneumothorax. Tip of right internal jugular central line projects over the mid SVC. Tip of nasogastric tube projects over the lower mediastinum, likely within the intrathoracic por tion of the stomach with hiatal hernia. Left lower lung opacity has likely increased. There is no layla dence for pulmonary edema. The patient is mildly rotated. IMPRESSION: 1. Tip of right internal jugular central line projects over the mid SVC. No pneumothorax. 2. Tip of nasogastric tube projects over the lower mediastinum, likely within the intrathoracic porti on of the stomach with hiatal hernia. 3. Increase in left basilar opacity which may reflect atelectasis or pneumonia. Electronically signed by: Agustin Linn M.D. 02/17/2019 9:38 PM
[2019-02-17] MEDS: POTASSIUM CHLORIDE / WTR 10 MEQ/100 ML PLCT IV SCH (21:56)
[2019-02-17] MEDS: INSULIN ASPART 100 UNITS/ML 3 ML PEN SC SCH (21:59)
[2019-02-17] MEDS ORDERED: POTASSIUM CHLORIDE / WTR 20 MEQ/100 ML PLCT IV ONE ×2 (22:00→23:00)
[2019-02-17] MEDS: PANTOprazole 40 MG in DEXTROSE 5% 100 ML IV SCH (22:31)
[2019-02-17 22:39] LABS: BUN Creatinine Ratio 32.2 (10-20); Calcium 8.2 mg/dl (8.5-10.1); Creatinine Clr Calc Pharmacy 38.1 ml/min; Est GFR (African American) 46.8; Est GFR (Non-African American) 40.4; Magnesium 2.9 mg/dl (1.8-2.4); Potassium 3.2 mmol/L (3.5-5.1)
[2019-02-17 22:48] LABS: Troponin I 0.212 ng/ml (0-0.045)
--- NOTE | 2019-02-17 23:06 | Consultation Report ---
DATE OF CONSULTATION: 02/17/2019 HISTORY OF PRESENT ILLNESS: This is a 73 year old lifetime non-smoker with a known history of an hiatal hernia and multiple other medical problems (Diabetes, neuropathy, breast cancer, etc) who presents with a 48 hour history of vomiting. She has been unable to take anything orally and is quite uncomfortable in the ED. A work up ensued and she has an apparent gastric volvulus. She is quite ill and has a presenting blood glucose over 500. Obviously dehydrated. I have reviewed this case with the ER physician, hospitalist, radiology, and our temperature regulator pyrometer and anesthesia. I feel this patient needs immediate surgical address, but upon further evaluation, she may be having an acute cardiac event. After an NG tube was inserted, we have elected to wait until she is more stable. She will be admitted to the ICU for aggressive resuscitation and support and we will closely monitor her to determine the timing of this repair. PAST MEDICAL HISTORY: 1. Large hiatal hernia with gastric volvulus. 2. Diabetes mellitus. 3. Hypothyroidism. 4. Hyperlipidemia. 5. Hypertension. 6. History of right breast cancer. 7. Peripheral vascular disease. PAST SURGICAL HISTORY: 1. 3, para 3. 2. Colonoscopy with polypectomy. 3. EGD. 4. Right partial mastectomy. 5. Arthroscopy of knee. MEDICATIONS: 1. Alendronate. 2. Amlodipine. 3. Aspirin. 4. Diclofenac. 5. Jardiance. 6. Ferrous sulfate. 7. Glipizide. 8. Synthroid. 9. Lisinopril. 10. Metformin. 11. Metoprolol. 12. Omeprazole. 13. Zofran. 14. Crestor. 15. Triamcinolone topical ointment. 16. Triamterene/hydrochlorothiazide. ALLERGIES: No known drug allergies. SOCIAL HISTORY: The patient lives with her of many years. She is retired. She has never smoked cigarettes. She has a supportive family with multiple children and grandchildren FAMILY MEDICAL HISTORY: Noncontributory, although the patient nor her know of anyone else who has ever had this problem. REVIEW OF SYSTEMS: The patient was in her usual state of health until 48 hours ago when after orthodox she ate pizza from [employer] and began vomiting. She denies any skin breakdown. She has had no changes in her vision or her hearing. She has had vomiting on and off for the last 48 hours and has coffee-ground emesis. She also denies chest pain per se, but had pain in her abdomen. That is a bit better now. She denied palpitations. She has had no difficulty with her breathing. She has had no neurologic changes. PHYSICAL EXAMINATION: GENERAL: This is an obese female who stands 5 feet 1 inch tall and weighs about 195 pounds. She wears glasses. HEENT: Extraocular movements are intact. She has black coating of her tongue in her mouth. She has no nasolabial flattening. NECK: Thick. She has some neck vein distention at 30 degrees. I do not detect carotid bruits or lymphadenopathy. LUNGS: Actually clear. ABDOMEN: Soft. I am not really hearing bowel sounds. She is not very tender, however. EXTREMITIES: She has 1+ edema of her lower extremities, but no wound breakdown. She has no joint effusions. It is difficult for me to palpate pulses, but her feet are warm and well perfused. NEUROLOGIC: She has no obvious focal deficits. ASSESSMENT AND PLAN: Large hiatal hernia with gastric volvulus in a patient who has multiple medical problems. Unfortunately, I do not think we are going to be able to wait on this patient. We were going to take her directly up to the operating room and release this gastric volvulus. I explained to the patient and her that this is a dangerous process and that she is "in trouble." They understand, but the patient feels so bad now that she has asked that we proceed with whatever is necessary to "make me feel better." The understands. We will proceed when the operating room when the patient is ready. She may be having a myocardial event, and we have postponed this operation until cardiology evaluates her and feels she is ready. SHERIE
[2019-02-17 23:48] LABS: Allen Test Pos (Pos); HCO3 ABG 23 mmol/L (19-24); PCO2 ABG 37 mmHg (35-46); PO2 ABG 90 mm/Hg (80-95); pH ABG 7.41 (7.35-7.45)
[2019-02-18 01:59] LABS: Hematocrit (blood only) 41.9 % (37-47); Hemoglobin 14.1 g/dL (12.0-16.0)
[2019-02-18 02:17] LABS: BUN Creatinine Ratio 32.6 (10-20); Creatinine Clr Calc Pharmacy 39.4 ml/min; Est GFR (African American) 48.6; Est GFR (Non-African American) 41.9; Magnesium 2.9 mg/dl (1.8-2.4); Phosphorus 2.1 mg/dl (2.5-4.9); Potassium 3.8 mmol/L (3.5-5.1)
[2019-02-18] MEDS: PANTOprazole 40 MG in DEXTROSE 5% 100 ML IV SCH ×3 (02:36→10:18)
[2019-02-18] MEDS: PIPERACILLIN/TAZOBACTAM 4.5 GM in DEXTROSE 5% 100 ML IV SCH ×3 (02:36→17:25)
[2019-02-18] MEDS: NORMOSOL-R 1,000 ML IV SCH ×4 (02:37→22:01)
[2019-02-18] MEDS: POTASSIUM CHLORIDE / WTR 10 MEQ/100 ML PLCT IV SCH (03:39)
[2019-02-18 06:11] LABS: Estimated Average Glucose 171 mg/dl; Hemoglobin A1C 7.6 % (4.5-5.6)
[2019-02-18 06:27] LABS: BUN Creatinine Ratio 35.3 (10-20); Calcium 7.7 mg/dl (8.5-10.1); Creatinine Clr Calc Pharmacy 44.7 ml/min; Est GFR (African American) 56.7; Est GFR (Non-African American) 48.9; Phosphorus 2.1 mg/dl (2.5-4.9); Potassium 3.4 mmol/L (3.5-5.1)
--- NOTE | 2019-02-18 07:34 | XRay Report ---
XR chest 1V portable CLINICAL HISTORY: gastric torsion tube position COMPARISON STUDY: 02/17/2018 FINDINGS: Unchanged position of a nasogastric tube within the hiatal hernia. Moderate stable cardiome anthony. No well-defined focal infiltrate, with improvement in aeration left lung base compared to the p rior study.. Central catheter in superior vena cava. IMPRESSION: 1. Nasogastric tube remains within the external hernia. 2. Improved aeration left base. The above report was generated using voice recognition software. It may contain grammatical, syntax or spelling errors. Electronically signed by: Christos Worley M.D. 02/18/2019 7:32 AM
[2019-02-18] MEDS: INSULIN ASPART 100 UNITS/ML 3 ML PEN SC SCH ×3 (08:05→17:26)
--- NOTE | 2019-02-18 08:24 | CT Scan Report ---
CT chest wo con CLINICAL HISTORY: Intrathoracic hiatal hernia with torsion COMPARISON STUDY: No previous studies for comparison. CT DOSE: 543.37 mGy.cm TECHNIQUE: CT of the thorax was performed from the thoracic inlet to the lung bases. Images are revi ewed in the axial, sagittal, and coronal planes. IV contrast was not administered for this examinatio n. A dose lowering technique was utilized adhering to the principles of ALARA. FINDINGS: Thyroid: Imaged portions of the thyroid gland are normal in appearance. Thoracic aorta: The ascending thoracic aorta measures 31 mm. Heart: There are coronary artery calcifications present Lungs and pleural spaces: There are trace pleural effusions. There are lingular and left lower lobe a irspace opacities, atelectatic versus infectious/inflammatory. There are right basilar atelectatic ch anges. There is a solid 5 mm right lower lobe pulmonary nodule. There is a 3 mm left upper lobe pulmo nary nodule. Mediastinum: There is no evidence of pathologic adenopathy Yolande: There is no evidence of pathologic hilar adenopathy given the limitations of a noncontrast stud y. Axilla: There is no evidence of pathologic axillary lymphadenopathy There is a large para esophageal hiatal hernia, with a organoaxial volvulus. A nasogastric tube is vi sualized within the stomach. Upper abdomen: There is a left adrenal adenoma. There is a large calcified gallstones. There is mini mal infiltration of the fat adjacent to the distal pancreas. Skeletal structures: There are no lytic or blastic osseous lesions. IMPRESSION: 1. Large paraesophageal hiatal hernia with a organoaxial gastric volvulus 2. Solid 5 mm right lower lobe pulmonary nodule. In a high risk patient, a 12 month follow-up is opti onal. 3. Trace pleural effusions 4. Lingular and left lower lobe airspace opacities, atelectatic versus infectious/inflammatory 5. Minimal infiltration of the peripancreatic fat 6. Cholelithiasis Please refer to below summary of Fleischner criteria recommendations for follow-up of incidental CT n odules (Cecile Quijano, Guidelines for management of small pulmonary nodules detected on CT scans: A sta tement from the Fleischner Society, Radiology 237: [id number].) SOLID NODULES Solitary nodule size: <6 mm * low risk patients: no follow-up needed * high risk patients: optional CT at 12 months Solitary nodule size: 6-8 mm * low risk patients: follow-up at 6-12 months, then consider further follow-up at 18-24 months * high risk patients: initial follow-up CT at 6-12 months and then at 18-24 months if no change Solitary nodule size: >8 mm * either low or high risk patients - consider follow-up CT at 3 months, and/or CT-PET, and/or biopsy Multiple nodules size: <6 mm * low risk patients: no routine follow-up * high risk patients: optional CT at 12 months Multiple nodules size: 6-8 mm * low risk patients: follow-up at 3-6 months, then consider further follow-up at 18-24 months * high risk patients: follow-up at 3-6 months, then at 18-24 months if no change Multiple nodules size: >8 mm * low risk patients: follow-up at 3-6 months, then consider further follow-up at 18-24 months * high risk patients: follow-up at 3-6 months, then at 18-24 months if no change Note: newly detected indeterminate nodule in persons 35 years of age or older. * low risk patients: minimal or absent history of smoking and/or other known risk factors * high risk patients: history of smoking or of other known risk factors (e.g. first degree relative with lung cancer, or exposure to asbestos, radon, uranium) * if a nodule up to 8 mm is partly solid or is ground glass further follow-up is required after 24 m onths to exclude possible slow growing adenocarcinoma (AUGUSTO) SUBSOLID NODULES Solitary pure ground-glass nodule * nodule size <6 mm - no CT follow-up required * nodule size >=6 mm - follow-up CT at 6-12 months, then every 2 years until 5 years Solitary part-solid nodule * nodule size <6 mm - no CT follow-up required * nodule size >=6 mm - follow-up CT at 3-6 months. If unchanged, and solid component remains <6 mm, then annual follow-up for 5 years Multiple subsolid nodules * nodule size <6 mm - follow-up CT at 3-6 months, consider further follow-up at 2 and 4 years if sta ble * nodule size >=6 mm - follow-up CT at 3-6 months, subsequent management based on the most suspiciou s nodule(s) Electronically signed by: Vicente Pineda M.D. 02/18/2019 8:23 AM
[2019-02-18] MEDS: LEVOTHYROXINE SODIUM 37.5 MCG in SYRINGE 0 ML IV SCH (08:54)
--- NOTE | 2019-02-18 09:16 | Surgery Consultation ---
Date of Consultation February 18, 2019 Assessment & Plan (1) Acute gastric volvulus: This is obviously a very unfortunate and serious situation. She is a relatively high surgical risk however there really is no option and this hiatal hernia must be repaired. She is doing better with resuscitation. Cardiology feels it was a cardiac demand issue rather than an acute WI. I had a discussion with Dr. Segovia. We have agreed that the best option would be to continue to resuscitate her today and correct her electrolytes. I will have time tomorrow to repair this laparoscopically. I discussed with the patient the high risk nature of the surgery which would include bleeding, infection, DVT, PE, WI, CVA, injury to another organ such as stomach diaphragm esophagus spleen etc. We discussed possible dysphasia following the procedure. Following this I answered her questions. I will contact her family later today. We will plan on laparoscopic repair of the paraesophageal hernia tomorrow. (2) Dehydration: (3) Diabetes: History of Present Illness Attending Physician: Yamila Winslow History of Present Illness 73-year-old female with a 48-hour history of epigastric abdominal pain with food intolerance nausea and vomiting. Work-up here at the hospital has showed a large hiatal hernia with gastric volvulus. Originally my assistance was requested by Dr. Segovia for any emergent repair. However work-up revealed that she might be in diabetic ketoacidosis as well as may be having an acute myocardial infarction. She was admitted to the ICU for consultation of cardiology as well as resuscitation. At this point in time she is doing much better. Her labs are improving. Currently she denies any abdominal or chest pain. She has an NG tube in place. She is still quite dehydrated however with some electrolyte abnormalities. Allergies Allergy/AdvReac Type Severity Reaction Status Date / Time No Known Allergies Allergy Verified 02/17/19 13:52 Home Medications Home Medications Medication Instructions Recorded Confirmed Type alendronate 70 mg PO WK 02/17/19 02/17/19 History amlodipine 5 mg PO DAILY 02/17/19 02/17/19 History aspirin [Aspirin Low Dose] 81 mg PO DAILY 02/17/19 02/17/19 History cholecalciferol (vitamin D3) 2,000 unit PO DAILY 02/17/19 02/17/19 History [Vitamin D3] diclofenac sodium 1 applic TOPICAL Q6H PRN 02/17/19 02/17/19 History empagliflozin [Jardiance] 10 mg PO DAILY 02/17/19 02/17/19 History ferrous sulfate 1 tab PO BID 02/17/19 02/17/19 History glipizide 20 mg PO DAILY 02/17/19 02/17/19 History levothyroxine 75 mcg PO DAILY 02/17/19 02/17/19 History lisinopril 5 mg PO DAILY 02/17/19 02/17/19 History metformin 1,000 mg PO BID 02/17/19 02/17/19 History metoprolol tartrate 50 mg PO BID 02/17/19 02/17/19 History omeprazole 20 mg PO DAILY 02/17/19 02/17/19 History ondansetron 1 tab TRANSLINGUAL Q8H PRN 02/17/19 02/17/19 History rosuvastatin [Crestor] 40 mg PO DAILY 02/17/19 02/17/19 History triamcinolone acetonide 1 applic TOPICAL BID 02/17/19 02/17/19 History triamterene-hydrochlorothiazid 1 cap PO DAILY 02/17/19 02/17/19 History Patient History Medical History Volvulus of stomach Diabetic neuropathy (Chronic) Diabetic retinopathy (Chronic) Hypothyroidism (Chronic) HLD (hyperlipidemia) (Chronic) HTN (hypertension) (Chronic) CAD (coronary artery disease) (Chronic) mild to moderate obstructive disease per left heart cath GERD (gastroesophageal reflux disease) (Chronic) Hiatal hernia (Chronic) Diverticulosis (Chronic) Senile osteoporosis (Chronic) Breast cancer, right (Chronic) PVD (peripheral vascular disease) (Chronic) Diabetes (Chronic) Surgical History History of colonoscopy with polypectomy (Chronic) History of esophagogastroduodenoscopy (EGD) (Chronic) erosive gastropathy History of partial mastectomy of right breast (Chronic) History of arthroscopy of knee (Chronic) Family History Mother Coronary heart disease Father Alzheimer disease Sister Diabetes Coronary heart disease Brother Coronary heart disease Other Family history non-contributory Social History Preferred Language: Macedonian Communication Ability: Effective marital status: Current Living Situation: Spouse current occupational status: retired Feels Safe at Home: Yes Smoking Status: Never smoker Do You Dip or Chew Tobacco: No Hx Alcohol Use: No Hx Substance Use: No Review of Systems Review of Systems: See HPI Physical Exam Physical Exam: awake /alert. nad. ngt in place HEENT: dry mm's. Pearla. EOMI Heart: Reg/tachy @ 100 bpm Lungs: decrease bs's in bases abd: soft nt. nd. ext: poor turgor. no edema. Results & Data Vital Signs (Past 12 Hours) Vital Signs Temp Pulse Pulse Resp BP BP Pulse Ox 02/18/19 06:00 98 H 18 150/65 H 93 02/18/19 05:00 36.7 C 103 H 18 138/71 93 02/18/19 04:00 37 C 108 H 20 157/61 H 91 02/18/19 03:00 110 H 16 130/58 L 94 02/18/19 02:00 101 H 16 110/38 L 94 02/18/19 01:00 110 H 16 139/40 L 93 02/18/19 00:00 110 H 18 134/40 L 93 02/17/19 23:00 94 H 23 113/48 L 96 02/17/19 22:00 107 H 20 163/93 H 91 02/17/19 21:52 101 H 118/53 L
--- NOTE | 2019-02-18 09:26 | Critical Care Progress Note ---
Date of Service February 18, 2019 Assessment & Plan (1) Admitted to intensive care unit: Reason Critically Ill: 73-year-old female with acute gastric volvulus found to have concerning EKG changes in the perioperative setting. DKA complicating clinical course. NEURO - * CAM ICU: NEGATIVE * Fentanyl as needed for pain. CARDIAC/VASCULAR - * Acute EKG changes with concern for STEMI: * Elevated troponins: Improving * Emergent Echo shows no regional wall motion abnormalities. Hyperdynamic left ventricular function w/ EF of >70%. Hyperdynamic Right ventricle noted. No valvular disease. * Patient does respond well to IVF. This may correlate to patient's EKG improvement w/ added preload in the setting of strain. * Known LAD lesion per cardiology. * Monitor on telemetry. * 5 mg IV metoprolol every 6 hours RESPIRATORY - * No h/o Pulmonary disease: GI/NUTRITION - * Acute Gastric Volvulus: * Complicated and likely 2/2 known hiatal hernia. * Lactate: Improved No obvious evidence of acute organ ischemia * NG tube in place for gastric decompression.: Low continuous suction changed to low intermittent suction today * Thoracic surgery on board. Will continue to assess from a medical standpoint. No immediate surgery at this time, but may require so w/ any acute changes in s/s or elevation of serial lactate. Plan for surgery Tomorrow * Continue Protonix gtt * Prophylaxis: Protonix RENAL/LYTES - * REKHA: Improved * IVF: Normosol-R@ 100 * Consider half to 1 replacement of NG output Hypokalemia * 20 M EQ's potassium acetate twice daily Hypophosphatemia 18mmol KPhos x1 - * Marie in place - Strict I&Os. ENDO - * DKA:Improved * Insulin gtt per protocol Goal range 1 80-1 40 HEME - * 5000 3 times daily for DVT prophylaxis ID - * continue Zosyn in the setting of acute volvulus with concern for organ ischemia LINES/IV ACCESS - * PIVs x2 * RIGHT IJ * LEFT Rad Art Line * Marie DVT PROPHYLAXIS - * Heparin 5000 3 times daily * SCDs (2) Volvulus of stomach: (3) Abnormal EKG: (4) Acute gastric volvulus: (5) DKA (diabetic ketoacidoses): (6) Hypothyroidism: (7) CAD (coronary artery disease): (8) HTN (hypertension): (9) HLD (hyperlipidemia): (10) Hiatal hernia: (11) Diabetes: (12) Dehydration: Supervising Physician Co-Signing Physician Notes Dr. Hernandez was resident physician during care of patient. I separately evaluated patient for baltazar portions of the history and the exam. I was present during the critical portion of medical decision making, and I discussed the case with the resident. I generally agree with the findings and plan. I have personally spent 40 minutes of critical care time in the direct management of this patient. This is a life/limb threatening event. This includes time spent evaluating patient, direct bedside care, chart review, placing orders, interpretation of diagnostic studies, discussion with consultants, patient, and/or family members regarding treatment decisions, as well as other required patient management activities. This time is exclusive of all separately billable procedures, and teaching time and separate from and in addition to any other critical care service time. Kerrie Amaya reports she feels "okay "this morning. She reports her abdomen feels mildly tender, but greatly improved from yesterday. She reports she is very thirsty and would like water. She denies other pain. She denies chest pain, chest pressure, shortness of breath.Her NGT remains in place, drained over 400 overnight. She had seen Dr. Barber of this morning who told her the plan was to undergo surgery tomorrow. She has no other questions or concerns at time of visit. Review of Systems Review of Systems: Constitutional: Denies fever, chills, Cardiovascular: Denies Chest pain, chest pressure, palpitations, Respiratory: Denies shortness of breath, cough, sputum production, difficulty breathing Gastrointestinal: Denies nausea, vomiting, constipation, diarrhea. Endorses mild abdominal pain improved from prior. Genitourinary: Denies pain with urination, urinary urgency, urinary frequency Musculoskeletal: Denies muscle aches/pain, joint aches/pain Integumentary:Denies new rash. Denies discomfort at line sites. Neurological: Denies headache, numbness, tingling. Endorses fatigue. Physical Exam Physical Exam: General: A&Ox3, ill-appearing. Cooperative. Answers questions appropriately. Right IJ in place. HEENT: Atraumatic, normocephalic. Pulm: Diminished but grossly CTAB A&P. -wheezes, -rales, -rhonchi. Symmetrical chest rise. No respiratory distress. Cardiac: Tachycardic to 100s. Regular. -mrg. Radial pulses intact and symmetrical. No JVD appreciated. No lower leg edema. Abdominal: Mildly tender to light palpation at the epigastrum. Soft. Distended. Results & Data Vital Signs (Past 12 Hours) Vital Signs Temp Pulse Pulse Resp BP BP Pulse Ox 02/18/19 06:00 98 H 18 150/65 H 93 02/18/19 05:00 36.7 C 103 H 18 138/71 93 02/18/19 04:00 37 C 108 H 20 157/61 H 91 02/18/19 03:00 110 H 16 130/58 L 94 02/18/19 02:00 101 H 16 110/38 L 94 02/18/19 01:00 110 H 16 139/40 L 93 02/18/19 00:00 110 H 18 134/40 L 93 02/17/19 23:00 94 H 23 113/48 L 96 02/17/19 22:00 107 H 20 163/93 H 91 02/17/19 21:52 101 H 118/53 L 02/17/19 21:00 105 H 19 162/46 H 92 02/17/19 20:00 36.6 C 112 H 20 211/57 H 211/57 H 95 02/17/19 19:00 102 H 21 118/53 L 92 Pulse Ox 02/18/19 06:00 02/18/19 05:00 02/18/19 04:00 02/18/19 03:00 02/18/19 02:00 02/18/19 01:00 02/18/19 00:00 02/17/19 23:00 02/17/19 22:00 02/17/19 21:52 02/17/19 21:00 02/17/19 20:00 95 02/17/19 19:00 Laboratory Results 02/18/19 02/18/19 02/18/19 Range/Units 17:24 15:59 14:48 WBC (4.8-10.8) K/uL RBC (4.2-5.4) M/uL Hgb (12.0-16.0) g/dL Hct (37-47) % MCV (80-100) fL MCH (25-34) pg MCHC (32-36) g/dL RDW Std Deviation (36.4-46.3) fL RDW Coeff of Blaire (11.5-14.5) % Plt Count (130-400) K/uL MPV (7.4-10.4) fL PT (9.0-12.0) Seconds INR (0.9-1.1) ABG pH (7.35-7.45) ABG pCO2 (35-46) mmHg ABG pO2 (80-95) mm/Hg ABG HCO3 (19-24) mmol/L ABG O2 Saturation (90-95) % ABG Base Excess (-9-1.8) mEq/L Jonathan Test (Pos) VBG pH (7.36-7.41) VBG pCO2 (38-50) mmHg VBG pO2 mmHg VBG HCO3 mmol/L VBG O2 Saturation % VBG Base Excess mEq/L Barometric Pressure mm/Hg Oxygen Given Sodium (136-145) mmol/L Potassium (3.5-5.1) mmol/L Chloride (98-107) mmol/L Carbon Dioxide (21-32) mmol/L Anion Gap (3-11) BUN (7-18) mg/dl Creatinine (0.6-1.2) mg/dl Est Cr Clr Drug Dosing ml/min Est GFR ( Amer) Est GFR (Non-Af Amer) BUN/Creatinine Ratio (10-20) Glucose (70-99) mg/dl POC Glucose 111 H 111 H 121 H (70-99) Estimat Average Glucose mg/dl Hemoglobin A1c (4.5-5.6) % Lactate (0.4-2.0) mmol/L Calcium (8.5-10.1) mg/dl Ionized Calcium (1.12-1.32) mmol/L Phosphorus (2.5-4.9) mg/dl Magnesium (1.8-2.4) mg/dl Total Bilirubin (0.2-1) mg/dl Direct Bilirubin (0-0.2) mg/dl AST (15-37) U/L ALT (12-78) U/L Alkaline Phosphatase (45-117) U/L Troponin I (0-0.045) ng/ml Total Protein (6.4-8.2) gm/dl Albumin (3.4-5.0) gm/dl Lipase (73-393) U/L Beta-Hydroxybutyric Acd (0.2-2.81) mg/dl Urine Color Urine Appearance (Clear) Urine pH (4.5-7.5) Ur Specific [place] (1.000-1.030) Urine Protein (Negative) Urine Glucose (UA) (Negative) Urine Ketones (Negative) Urine Blood (Negative) Urine Nitrite (Negative) Urine Bilirubin (Negative) Urine Urobilinogen (Negative) Ur Leukocyte Esterase (Negative) Urine WBC (Auto) (0-5) /hpf Urine RBC (Auto) (0-4) /hpf U Hyaline Cast (Auto) (0-5) /lpf U Epithel Cells (Auto) (0-5) /lpf Urine Bacteria (Auto) (Negative) Nasal Screen MRSA (PCR) (Negative) Blood Type Blood Type Recheck Rho(D) Type Antibody Screen Crossmatch 02/18/19 02/18/19 02/18/19 Range/Units 13:42 13:42 13:41 WBC (4.8-10.8) K/uL RBC (4.2-5.4) M/uL Hgb (12.0-16.0) g/dL Hct (37-47) % MCV (80-100) fL MCH (25-34) pg MCHC (32-36) g/dL RDW Std Deviation (36.4-46.3) fL RDW Coeff of Blaire (11.5-14.5) % Plt Count (130-400) K/uL MPV (7.4-10.4) fL PT (9.0-12.0) Seconds INR (0.9-1.1) ABG pH (7.35-7.45) ABG pCO2 (35-46) mmHg ABG pO2 (80-95) mm/Hg ABG HCO3 (19-24) mmol/L ABG O2 Saturation (90-95) % ABG Base Excess (-9-1.8) mEq/L Jonathan Test (Pos) VBG pH 7.40 (7.36-7.41) VBG pCO2 (38-50) mmHg VBG pO2 mmHg VBG HCO3 mmol/L VBG O2 Saturation % VBG Base Excess mEq/L Barometric Pressure mm/Hg Oxygen Given Sodium 149 H (136-145) mmol/L Potassium 3.5 (3.5-5.1) mmol/L Chloride 117 H (98-107) mmol/L Carbon Dioxide 28 (21-32) mmol/L Anion Gap 4.0 (3-11) BUN 29 H (7-18) mg/dl Creatinine 0.85 (0.6-1.2) mg/dl Est Cr Clr Drug Dosing 58.3 ml/min Est GFR ( Amer) 78.2 Est GFR (Non-Af Amer) 67.5 BUN/Creatinine Ratio 33.7 H (10-20) Glucose 130 H (70-99) mg/dl POC Glucose 121 H (70-99) Estimat Average Glucose mg/dl Hemoglobin A1c (4.5-5.6) % Lactate (0.4-2.0) mmol/L Calcium 7.8 L (8.5-10.1) mg/dl Ionized Calcium (1.12-1.32) mmol/L Phosphorus 1.5 L* (2.5-4.9) mg/dl Magnesium 3.1 H (1.8-2.4) mg/dl Total Bilirubin (0.2-1) mg/dl Direct Bilirubin (0-0.2) mg/dl AST (15-37) U/L ALT (12-78) U/L Alkaline Phosphatase (45-117) U/L Troponin I (0-0.045) ng/ml Total Protein (6.4-8.2) gm/dl Albumin (3.4-5.0) gm/dl Lipase (73-393) U/L Beta-Hydroxybutyric Acd (0.2-2.81) mg/dl Urine Color Urine Appearance (Clear) Urine pH (4.5-7.5) Ur Specific [place] (1.000-1.030) Urine Protein (Negative) Urine Glucose (UA) (Negative) Urine Ketones (Negative) Urine Blood (Negative) Urine Nitrite (Negative) Urine Bilirubin (Negative) Urine Urobilinogen (Negative) Ur Leukocyte Esterase (Negative) Urine WBC (Auto) (0-5) /hpf Urine RBC (Auto) (0-4) /hpf U Hyaline Cast (Auto) (0-5) /lpf U Epithel Cells (Auto) (0-5) /lpf Urine Bacteria (Auto) (Negative) Nasal Screen MRSA (PCR) (Negative) Blood Type Blood Type Recheck Rho(D) Type Antibody Screen Crossmatch 02/18/19 02/18/19 02/18/19 Range/Units 12:21 11:09 10:09 WBC (4.8-10.8) K/uL RBC (4.2-5.4) M/uL Hgb (12.0-16.0) g/dL Hct (37-47) % MCV (80-100) fL MCH (25-34) pg MCHC (32-36) g/dL RDW Std Deviation (36.4-46.3) fL RDW Coeff of Blaire (11.5-14.5) % Plt Count (130-400) K/uL MPV (7.4-10.4) fL PT (9.0-12.0) Seconds INR (0.9-1.1) ABG pH (7.35-7.45) ABG pCO2 (35-46) mmHg ABG pO2 (80-95) mm/Hg ABG HCO3 (19-24) mmol/L ABG O2 Saturation (90-95) % ABG Base Excess (-9-1.8) mEq/L Jonathan Test (Pos) VBG pH (7.36-7.41) VBG pCO2 (38-50) mmHg VBG pO2 mmHg VBG HCO3 mmol/L VBG O2 Saturation % VBG Base Excess mEq/L Barometric Pressure mm/Hg Oxygen Given Sodium (136-145) mmol/L Potassium (3.5-5.1) mmol/L Chloride (98-107) mmol/L Carbon Dioxide (21-32) mmol/L Anion Gap (3-11) BUN (7-18) mg/dl Creatinine (0.6-1.2) mg/dl Est Cr Clr Drug Dosing ml/min Est GFR ( Amer) Est GFR (Non-Af Amer) BUN/Creatinine Ratio (10-20) Glucose (70-99) mg/dl POC Glucose 125 H 122 H 135 H (70-99) Estimat Average Glucose mg/dl Hemoglobin A1c (4.5-5.6) % Lactate (0.4-2.0) mmol/L Calcium (8.5-10.1) mg/dl Ionized Calcium (1.12-1.32) mmol/L Phosphorus (2.5-4.9) mg/dl Magnesium (1.8-2.4) mg/dl Total Bilirubin (0.2-1) mg/dl Direct Bilirubin (0-0.2) mg/dl AST (15-37) U/L ALT (12-78) U/L Alkaline Phosphatase (45-117) U/L Troponin I (0-0.045) ng/ml Total Protein (6.4-8.2) gm/dl Albumin (3.4-5.0) gm/dl Lipase (73-393) U/L Beta-Hydroxybutyric Acd (0.2-2.81) mg/dl Urine Color Urine Appearance (Clear) Urine pH (4.5-7.5) Ur Specific [place] (1.000-1.030) Urine Protein (Negative) Urine Glucose (UA) (Negative) Urine Ketones (Negative) Urine Blood (Negative) Urine Nitrite (Negative) Urine Bilirubin (Negative) Urine Urobilinogen (Negative) Ur Leukocyte Esterase (Negative) Urine WBC (Auto) (0-5) /hpf Urine RBC (Auto) (0-4) /hpf U Hyaline Cast (Auto) (0-5) /lpf U Epithel Cells (Auto) (0-5) /lpf Urine Bacteria (Auto) (Negative) Nasal Screen MRSA (PCR) (Negative) Blood Type Blood Type Recheck Rho(D) Type Antibody Screen Crossmatch 02/18/19 02/18/19 02/18/19 Range/Units 09:09 09:09 09:09 WBC 16.35 H D (4.8-10.8) K/uL RBC 4.67 (4.2-5.4) M/uL Hgb 13.8 (12.0-16.0) g/dL Hct 41.1 (37-47) % MCV 88.0 (80-100) fL MCH 29.6 (25-34) pg MCHC 33.6 (32-36) g/dL RDW Std Deviation 50.5 H (36.4-46.3) fL RDW Coeff of Blaire 15.8 H (11.5-14.5) % Plt Count 268 (130-400) K/uL MPV 8.6 (7.4-10.4) fL PT (9.0-12.0) Seconds INR (0.9-1.1) ABG pH (7.35-7.45) ABG pCO2 (35-46) mmHg ABG pO2 (80-95) mm/Hg ABG HCO3 (19-24) mmol/L ABG O2 Saturation (90-95) % ABG Base Excess (-9-1.8) mEq/L Jonathan Test (Pos) VBG pH 7.40 (7.36-7.41) VBG pCO2 (38-50) mmHg VBG pO2 mmHg VBG HCO3 mmol/L VBG O2 Saturation % VBG Base Excess mEq/L Barometric Pressure mm/Hg Oxygen Given Sodium 150 H (136-145) mmol/L Potassium 3.2 L (3.5-5.1) mmol/L Chloride 116 H (98-107) mmol/L Carbon Dioxide 25 (21-32) mmol/L Anion Gap 9.0 (3-11) BUN 35 H (7-18) mg/dl Creatinine 1.04 (0.6-1.2) mg/dl Est Cr Clr Drug Dosing 47.7 ml/min Est GFR ( Amer) 61.3 Est GFR (Non-Af Amer) 52.9 BUN/Creatinine Ratio 33.4 H (10-20) Glucose 158 H (70-99) mg/dl POC Glucose (70-99) Estimat Average Glucose mg/dl Hemoglobin A1c (4.5-5.6) % Lactate (0.4-2.0) mmol/L Calcium 8.2 L (8.5-10.1) mg/dl Ionized Calcium (1.12-1.32) mmol/L Phosphorus 1.7 L (2.5-4.9) mg/dl Magnesium 3.1 H (1.8-2.4) mg/dl Total Bilirubin (0.2-1) mg/dl Direct Bilirubin (0-0.2) mg/dl AST (15-37) U/L ALT (12-78) U/L Alkaline Phosphatase (45-117) U/L Troponin I (0-0.045) ng/ml Total Protein (6.4-8.2) gm/dl Albumin (3.4-5.0) gm/dl Lipase (73-393) U/L Beta-Hydroxybutyric Acd (0.2-2.81) mg/dl Urine Color Urine Appearance (Clear) Urine pH (4.5-7.5) Ur Specific [place] (1.000-1.030) Urine Protein (Negative) Urine Glucose (UA) (Negative) Urine Ketones (Negative) Urine Blood (Negative) Urine Nitrite (Negative) Urine Bilirubin (Negative) Urine Urobilinogen (Negative) Ur Leukocyte Esterase (Negative) Urine WBC (Auto) (0-5) /hpf Urine RBC (Auto) (0-4) /hpf U Hyaline Cast (Auto) (0-5) /lpf U Epithel Cells (Auto) (0-5) /lpf Urine Bacteria (Auto) (Negative) Nasal Screen MRSA (PCR) (Negative) Blood Type Blood Type Recheck Rho(D) Type Antibody Screen Crossmatch 02/18/19 02/18/19 02/18/19 Range/Units 09:05 07:45 06:30 WBC (4.8-10.8) K/uL RBC (4.2-5.4) M/uL Hgb (12.0-16.0) g/dL Hct (37-47) % MCV (80-100) fL MCH (25-34) pg MCHC (32-36) g/dL RDW Std Deviation (36.4-46.3) fL RDW Coeff of Blaire (11.5-14.5) % Plt Count (130-400) K/uL MPV (7.4-10.4) fL PT (9.0-12.0) Seconds INR (0.9-1.1) ABG pH (7.35-7.45) ABG pCO2 (35-46) mmHg ABG pO2 (80-95) mm/Hg ABG HCO3 (19-24) mmol/L ABG O2 Saturation (90-95) % ABG Base Excess (-9-1.8) mEq/L Jonathan Test (Pos) VBG pH (7.36-7.41) VBG pCO2 (38-50) mmHg VBG pO2 mmHg VBG HCO3 mmol/L VBG O2 Saturation % VBG Base Excess mEq/L Barometric Pressure mm/Hg Oxygen Given Sodium (136-145) mmol/L Potassium (3.5-5.1) mmol/L Chloride (98-107) mmol/L Carbon Dioxide (21-32) mmol/L Anion Gap (3-11) BUN (7-18) mg/dl Creatinine (0.6-1.2) mg/dl Est Cr Clr Drug Dosing ml/min Est GFR ( Amer) Est GFR (Non-Af Amer) BUN/Creatinine Ratio (10-20) Glucose (70-99) mg/dl POC Glucose 143 H 162 H 179 H (70-99) Estimat Average Glucose mg/dl Hemoglobin A1c (4.5-5.6) % Lactate (0.4-2.0) mmol/L Calcium (8.5-10.1) mg/dl Ionized Calcium (1.12-1.32) mmol/L Phosphorus (2.5-4.9) mg/dl Magnesium (1.8-2.4) mg/dl Total Bilirubin (0.2-1) mg/dl Direct Bilirubin (0-0.2) mg/dl AST (15-37) U/L ALT (12-78) U/L Alkaline Phosphatase (45-117) U/L Troponin I (0-0.045) ng/ml Total Protein (6.4-8.2) gm/dl Albumin (3.4-5.0) gm/dl Lipase (73-393) U/L Beta-Hydroxybutyric Acd (0.2-2.81) mg/dl Urine Color Urine Appearance (Clear) Urine pH (4.5-7.5) Ur Specific [place] (1.000-1.030) Urine Protein (Negative) Urine Glucose (UA) (Negative) Urine Ketones (Negative) Urine Blood (Negative) Urine Nitrite (Negative) Urine Bilirubin (Negative) Urine Urobilinogen (Negative) Ur Leukocyte Esterase (Negative) Urine WBC (Auto) (0-5) /hpf Urine RBC (Auto) (0-4) /hpf U Hyaline Cast (Auto) (0-5) /lpf U Epithel Cells (Auto) (0-5) /lpf Urine Bacteria (Auto) (Negative) Nasal Screen MRSA (PCR) (Negative) Blood Type Blood Type Recheck Rho(D) Type Antibody Screen Crossmatch 02/18/19 02/18/19 02/18/19 Range/Units 05:42 05:41 05:41 WBC (4.8-10.8) K/uL RBC (4.2-5.4) M/uL Hgb (12.0-16.0) g/dL Hct (37-47) % MCV (80-100) fL MCH (25-34) pg MCHC (32-36) g/dL RDW Std Deviation (36.4-46.3) fL RDW Coeff of Blaire (11.5-14.5) % Plt Count (130-400) K/uL MPV (7.4-10.4) fL PT (9.0-12.0) Seconds INR (0.9-1.1) ABG pH (7.35-7.45) ABG pCO2 (35-46) mmHg ABG pO2 (80-95) mm/Hg ABG HCO3 (19-24) mmol/L ABG O2 Saturation (90-95) % ABG Base Excess (-9-1.8) mEq/L Jonathan Test (Pos) VBG pH 7.35 L (7.36-7.41) VBG pCO2 (38-50) mmHg VBG pO2 mmHg VBG HCO3 mmol/L VBG O2 Saturation % VBG Base Excess mEq/L Barometric Pressure mm/Hg Oxygen Given Sodium (136-145) mmol/L Potassium (3.5-5.1) mmol/L Chloride (98-107) mmol/L Carbon Dioxide (21-32) mmol/L Anion Gap (3-11) BUN (7-18) mg/dl Creatinine (0.6-1.2) mg/dl Est Cr Clr Drug Dosing ml/min Est GFR ( Amer) Est GFR (Non-Af Amer) BUN/Creatinine Ratio (10-20) Glucose (70-99) mg/dl POC Glucose 200 H (70-99) Estimat Average Glucose mg/dl Hemoglobin A1c (4.5-5.6) % Lactate (0.4-2.0) mmol/L Calcium (8.5-10.1) mg/dl Ionized Calcium (1.12-1.32) mmol/L Phosphorus (2.5-4.9) mg/dl Magnesium (1.8-2.4) mg/dl Total Bilirubin (0.2-1) mg/dl Direct Bilirubin (0-0.2) mg/dl AST (15-37) U/L ALT (12-78) U/L Alkaline Phosphatase (45-117) U/L Troponin I 0.204 H* (0-0.045) ng/ml Total Protein (6.4-8.2) gm/dl Albumin (3.4-5.0) gm/dl Lipase (73-393) U/L Beta-Hydroxybutyric Acd (0.2-2.81) mg/dl Urine Color Urine Appearance (Clear) Urine pH (4.5-7.5) Ur Specific [place] (1.000-1.030) Urine Protein (Negative) Urine Glucose (UA) (Negative) Urine Ketones (Negative) Urine Blood (Negative) Urine Nitrite (Negative) Urine Bilirubin (Negative) Urine Urobilinogen (Negative) Ur Leukocyte Esterase (Negative) Urine WBC (Auto) (0-5) /hpf Urine RBC (Auto) (0-4) /hpf U Hyaline Cast (Auto) (0-5) /lpf U Epithel Cells (Auto) (0-5) /lpf Urine Bacteria (Auto) (Negative) Nasal Screen MRSA (PCR) (Negative) Blood Type Blood Type Recheck Rho(D) Type Antibody Screen Crossmatch 02/18/19 02/18/19 02/18/19 Range/Units 05:41 05:06 03:33 WBC (4.8-10.8) K/uL RBC (4.2-5.4) M/uL Hgb (12.0-16.0) g/dL Hct (37-47) % MCV (80-100) fL MCH (25-34) pg MCHC (32-36) g/dL RDW Std Deviation (36.4-46.3) fL RDW Coeff of Blaire (11.5-14.5) % Plt Count (130-400) K/uL MPV (7.4-10.4) fL PT (9.0-12.0) Seconds INR (0.9-1.1) ABG pH (7.35-7.45) ABG pCO2 (35-46) mmHg ABG pO2 (80-95) mm/Hg ABG HCO3 (19-24) mmol/L ABG O2 Saturation (90-95) % ABG Base Excess (-9-1.8) mEq/L Jonathan Test (Pos) VBG pH (7.36-7.41) VBG pCO2 (38-50) mmHg VBG pO2 mmHg VBG HCO3 mmol/L VBG O2 Saturation % VBG Base Excess mEq/L Barometric Pressure mm/Hg Oxygen Given Sodium 148 H (136-145) mmol/L Potassium 3.4 L (3.5-5.1) mmol/L Chloride 115 H (98-107) mmol/L Carbon Dioxide 22 (21-32) mmol/L Anion Gap 11.0 (3-11) BUN 39 H (7-18) mg/dl Creatinine 1.11 (0.6-1.2) mg/dl Est Cr Clr Drug Dosing 44.7 ml/min Est GFR ( Amer) 56.7 Est GFR (Non-Af Amer) 48.9 BUN/Creatinine Ratio 35.3 H (10-20) Glucose 220 H (70-99) mg/dl POC Glucose 224 H 176 H (70-99) Estimat Average Glucose mg/dl Hemoglobin A1c (4.5-5.6) % Lactate (0.4-2.0) mmol/L Calcium 7.7 L (8.5-10.1) mg/dl Ionized Calcium (1.12-1.32) mmol/L Phosphorus 2.1 L (2.5-4.9) mg/dl Magnesium 3.0 H (1.8-2.4) mg/dl Total Bilirubin (0.2-1) mg/dl Direct Bilirubin (0-0.2) mg/dl AST (15-37) U/L ALT (12-78) U/L Alkaline Phosphatase (45-117) U/L Troponin I (0-0.045) ng/ml Total Protein (6.4-8.2) gm/dl Albumin (3.4-5.0) gm/dl Lipase (73-393) U/L Beta-Hydroxybutyric Acd (0.2-2.81) mg/dl Urine Color Urine Appearance (Clear) Urine pH (4.5-7.5) Ur Specific [place] (1.000-1.030) Urine Protein (Negative) Urine Glucose (UA) (Negative) Urine Ketones (Negative) Urine Blood (Negative) Urine Nitrite (Negative) Urine Bilirubin (Negative) Urine Urobilinogen (Negative) Ur Leukocyte Esterase (Negative) Urine WBC (Auto) (0-5) /hpf Urine RBC (Auto) (0-4) /hpf U Hyaline Cast (Auto) (0-5) /lpf U Epithel Cells (Auto) (0-5) /lpf Urine Bacteria (Auto) (Negative) Nasal Screen MRSA (PCR) (Negative) Blood Type Blood Type Recheck Rho(D) Type Antibody Screen Crossmatch 02/18/19 02/18/19 02/18/19 Range/Units 02:58 02:26 01:46 WBC (4.8-10.8) K/uL RBC (4.2-5.4) M/uL Hgb (12.0-16.0) g/dL Hct (37-47) % MCV (80-100) fL MCH (25-34) pg MCHC (32-36) g/dL RDW Std Deviation (36.4-46.3) fL RDW Coeff of Blaire (11.5-14.5) % Plt Count (130-400) K/uL MPV (7.4-10.4) fL PT (9.0-12.0) Seconds INR (0.9-1.1) ABG pH (7.35-7.45) ABG pCO2 (35-46) mmHg ABG pO2 (80-95) mm/Hg ABG HCO3 (19-24) mmol/L ABG O2 Saturation (90-95) % ABG Base Excess (-9-1.8) mEq/L Jonathan Test (Pos) VBG pH (7.36-7.41) VBG pCO2 (38-50) mmHg VBG pO2 mmHg VBG HCO3 mmol/L VBG O2 Saturation % VBG Base Excess mEq/L Barometric Pressure mm/Hg Oxygen Given Sodium (136-145) mmol/L Potassium (3.5-5.1) mmol/L Chloride (98-107) mmol/L Carbon Dioxide (21-32) mmol/L Anion Gap (3-11) BUN (7-18) mg/dl Creatinine (0.6-1.2) mg/dl Est Cr Clr Drug Dosing ml/min Est GFR ( Amer) Est GFR (Non-Af Amer) BUN/Creatinine Ratio (10-20) Glucose (70-99) mg/dl POC Glucose 173 H 174 H 193 H (70-99) Estimat Average Glucose mg/dl Hemoglobin A1c (4.5-5.6) % Lactate (0.4-2.0) mmol/L Calcium (8.5-10.1) mg/dl Ionized Calcium (1.12-1.32) mmol/L Phosphorus (2.5-4.9) mg/dl Magnesium (1.8-2.4) mg/dl Total Bilirubin (0.2-1) mg/dl Direct Bilirubin (0-0.2) mg/dl AST (15-37) U/L ALT (12-78) U/L Alkaline Phosphatase (45-117) U/L Troponin I (0-0.045) ng/ml Total Protein (6.4-8.2) gm/dl Albumin (3.4-5.0) gm/dl Lipase (73-393) U/L Beta-Hydroxybutyric Acd (0.2-2.81) mg/dl Urine Color Urine Appearance (Clear) Urine pH (4.5-7.5) Ur Specific [place] (1.000-1.030) Urine Protein (Negative) Urine Glucose (UA) (Negative) Urine Ketones (Negative) Urine Blood (Negative) Urine Nitrite (Negative) Urine Bilirubin (Negative) Urine Urobilinogen (Negative) Ur Leukocyte Esterase (Negative) Urine WBC (Auto) (0-5) /hpf Urine RBC (Auto) (0-4) /hpf U Hyaline Cast (Auto) (0-5) /lpf U Epithel Cells (Auto) (0-5) /lpf Urine Bacteria (Auto) (Negative) Nasal Screen MRSA (PCR) (Negative) Blood Type Blood Type Recheck Rho(D) Type Antibody Screen Crossmatch 02/18/19 02/18/19 02/18/19 Range/Units 01:46 01:46 01:45 WBC (4.8-10.8) K/uL RBC (4.2-5.4) M/uL Hgb 14.1 D (12.0-16.0) g/dL Hct 41.9 (37-47) % MCV (80-100) fL MCH (25-34) pg MCHC (32-36) g/dL RDW Std Deviation (36.4-46.3) fL RDW Coeff of Blaire (11.5-14.5) % Plt Count (130-400) K/uL MPV (7.4-10.4) fL PT (9.0-12.0) Seconds INR (0.9-1.1) ABG pH (7.35-7.45) ABG pCO2 (35-46) mmHg ABG pO2 (80-95) mm/Hg ABG HCO3 (19-24) mmol/L ABG O2 Saturation (90-95) % ABG Base Excess (-9-1.8) mEq/L Jonathan Test (Pos) VBG pH 7.43 H (7.36-7.41) VBG pCO2 (38-50) mmHg VBG pO2 mmHg VBG HCO3 mmol/L VBG O2 Saturation % VBG Base Excess mEq/L Barometric Pressure mm/Hg Oxygen Given Sodium (136-145) mmol/L Potassium (3.5-5.1) mmol/L Chloride (98-107) mmol/L Carbon Dioxide (21-32) mmol/L Anion Gap (3-11) BUN (7-18) mg/dl Creatinine (0.6-1.2) mg/dl Est Cr Clr Drug Dosing ml/min Est GFR ( Amer) Est GFR (Non-Af Amer) BUN/Creatinine Ratio (10-20) Glucose (70-99) mg/dl POC Glucose (70-99) Estimat Average Glucose mg/dl Hemoglobin A1c (4.5-5.6) % Lactate 0.9 (0.4-2.0) mmol/L Calcium (8.5-10.1) mg/dl Ionized Calcium (1.12-1.32) mmol/L Phosphorus (2.5-4.9) mg/dl Magnesium (1.8-2.4) mg/dl Total Bilirubin (0.2-1) mg/dl Direct Bilirubin (0-0.2) mg/dl AST (15-37) U/L ALT (12-78) U/L Alkaline Phosphatase (45-117) U/L Troponin I (0-0.045) ng/ml Total Protein (6.4-8.2) gm/dl Albumin (3.4-5.0) gm/dl Lipase (73-393) U/L Beta-Hydroxybutyric Acd (0.2-2.81) mg/dl Urine Color Urine Appearance (Clear) Urine pH (4.5-7.5) Ur Specific [place] (1.000-1.030) Urine Protein (Negative) Urine Glucose (UA) (Negative) Urine Ketones (Negative) Urine Blood (Negative) Urine Nitrite (Negative) Urine Bilirubin (Negative) Urine Urobilinogen (Negative) Ur Leukocyte Esterase (Negative) Urine WBC (Auto) (0-5) /hpf Urine RBC (Auto) (0-4) /hpf U Hyaline Cast (Auto) (0-5) /lpf U Epithel Cells (Auto) (0-5) /lpf Urine Bacteria (Auto) (Negative) Nasal Screen MRSA (PCR) (Negative) Blood Type Blood Type Recheck Rho(D) Type Antibody Screen Crossmatch 02/18/19 02/18/19 02/17/19 Range/Units 01:45 01:45 23:23 WBC (4.8-10.8) K/uL RBC (4.2-5.4) M/uL Hgb (12.0-16.0) g/dL Hct (37-47) % MCV (80-100) fL MCH (25-34) pg MCHC (32-36) g/dL RDW Std Deviation (36.4-46.3) fL RDW Coeff of Blaire (11.5-14.5) % Plt Count (130-400) K/uL MPV (7.4-10.4) fL PT (9.0-12.0) Seconds INR (0.9-1.1) ABG pH (7.35-7.45) ABG pCO2 (35-46) mmHg ABG pO2 (80-95) mm/Hg ABG HCO3 (19-24) mmol/L ABG O2 Saturation (90-95) % ABG Base Excess (-9-1.8) mEq/L Jonathan Test (Pos) VBG pH (7.36-7.41) VBG pCO2 (38-50) mmHg VBG pO2 mmHg VBG HCO3 mmol/L VBG O2 Saturation % VBG Base Excess mEq/L Barometric Pressure mm/Hg Oxygen Given Sodium 148 H (136-145) mmol/L Potassium 3.8 D (3.5-5.1) mmol/L Chloride 116 H (98-107) mmol/L Carbon Dioxide 24 (21-32) mmol/L Anion Gap 8.0 (3-11) BUN 41 H (7-18) mg/dl Creatinine 1.26 H (0.6-1.2) mg/dl Est Cr Clr Drug Dosing 39.4 ml/min Est GFR ( Amer) 48.6 Est GFR (Non-Af Amer) 41.9 BUN/Creatinine Ratio 32.6 H (10-20) Glucose 210 H (70-99) mg/dl POC Glucose 230 H (70-99) Estimat Average Glucose 171 mg/dl Hemoglobin A1c 7.6 H (4.5-5.6) % Lactate (0.4-2.0) mmol/L Calcium 8.0 L (8.5-10.1) mg/dl Ionized Calcium (1.12-1.32) mmol/L Phosphorus 2.1 L (2.5-4.9) mg/dl Magnesium 2.9 H (1.8-2.4) mg/dl Total Bilirubin (0.2-1) mg/dl Direct Bilirubin (0-0.2) mg/dl AST (15-37) U/L ALT (12-78) U/L Alkaline Phosphatase (45-117) U/L Troponin I (0-0.045) ng/ml Total Protein (6.4-8.2) gm/dl Albumin (3.4-5.0) gm/dl Lipase (73-393) U/L Beta-Hydroxybutyric Acd (0.2-2.81) mg/dl Urine Color Urine Appearance (Clear) Urine pH (4.5-7.5) Ur Specific [place] (1.000-1.030) Urine Protein (Negative) Urine Glucose (UA) (Negative) Urine Ketones (Negative) Urine Blood (Negative) Urine Nitrite (Negative) Urine Bilirubin (Negative) Urine Urobilinogen (Negative) Ur Leukocyte Esterase (Negative) Urine WBC (Auto) (0-5) /hpf Urine RBC (Auto) (0-4) /hpf U Hyaline Cast (Auto) (0-5) /lpf U Epithel Cells (Auto) (0-5) /lpf Urine Bacteria (Auto) (Negative) Nasal Screen MRSA (PCR) (Negative) Blood Type Blood Type Recheck Rho(D) Type Antibody Screen Crossmatch 02/17/19 02/17/19 02/17/19 Range/Units 23:08 22:28 22:01 WBC (4.8-10.8) K/uL RBC (4.2-5.4) M/uL Hgb (12.0-16.0) g/dL Hct (37-47) % MCV (80-100) fL MCH (25-34) pg MCHC (32-36) g/dL RDW Std Deviation (36.4-46.3) fL RDW Coeff of Blaire (11.5-14.5) % Plt Count (130-400) K/uL MPV (7.4-10.4) fL PT (9.0-12.0) Seconds INR (0.9-1.1) ABG pH 7.41 (7.35-7.45) ABG pCO2 37 (35-46) mmHg ABG pO2 90 (80-95) mm/Hg ABG HCO3 23 (19-24) mmol/L ABG O2 Saturation 97.0 H (90-95) % ABG Base Excess -1.7 (-9-1.8) mEq/L Jonathan Test Pos (Pos) VBG pH (7.36-7.41) VBG pCO2 (38-50) mmHg VBG pO2 mmHg VBG HCO3 mmol/L VBG O2 Saturation % VBG Base Excess mEq/L Barometric Pressure 735.4 mm/Hg Oxygen Given 5L O2 Sodium (136-145) mmol/L Potassium (3.5-5.1) mmol/L Chloride (98-107) mmol/L Carbon Dioxide (21-32) mmol/L Anion Gap (3-11) BUN (7-18) mg/dl Creatinine (0.6-1.2) mg/dl Est Cr Clr Drug Dosing ml/min Est GFR ( Amer) Est GFR (Non-Af Amer) BUN/Creatinine Ratio (10-20) Glucose (70-99) mg/dl POC Glucose 230 H (70-99) Estimat Average Glucose mg/dl Hemoglobin A1c (4.5-5.6) % Lactate 0.9 (0.4-2.0) mmol/L Calcium (8.5-10.1) mg/dl Ionized Calcium (1.12-1.32) mmol/L Phosphorus (2.5-4.9) mg/dl Magnesium (1.8-2.4) mg/dl Total Bilirubin (0.2-1) mg/dl Direct Bilirubin (0-0.2) mg/dl AST (15-37) U/L ALT (12-78) U/L Alkaline Phosphatase (45-117) U/L Troponin I (0-0.045) ng/ml Total Protein (6.4-8.2) gm/dl Albumin (3.4-5.0) gm/dl Lipase (73-393) U/L Beta-Hydroxybutyric Acd (0.2-2.81) mg/dl Urine Color Urine Appearance (Clear) Urine pH (4.5-7.5) Ur Specific [place] (1.000-1.030) Urine Protein (Negative) Urine Glucose (UA) (Negative) Urine Ketones (Negative) Urine Blood (Negative) Urine Nitrite (Negative) Urine Bilirubin (Negative) Urine Urobilinogen (Negative) Ur Leukocyte Esterase (Negative) Urine WBC (Auto) (0-5) /hpf Urine RBC (Auto) (0-4) /hpf U Hyaline Cast (Auto) (0-5) /lpf U Epithel Cells (Auto) (0-5) /lpf Urine Bacteria (Auto) (Negative) Nasal Screen MRSA (PCR) (Negative) Blood Type Blood Type Recheck Rho(D) Type Antibody Screen Crossmatch 02/17/19 02/17/19 02/17/19 Range/Units 22:01 22:01 21:20 WBC (4.8-10.8) K/uL RBC (4.2-5.4) M/uL Hgb (12.0-16.0) g/dL Hct (37-47) % MCV (80-100) fL MCH (25-34) pg MCHC (32-36) g/dL RDW Std Deviation (36.4-46.3) fL RDW Coeff of Blaire (11.5-14.5) % Plt Count (130-400) K/uL MPV (7.4-10.4) fL PT (9.0-12.0) Seconds INR (0.9-1.1) ABG pH (7.35-7.45) ABG pCO2 (35-46) mmHg ABG pO2 (80-95) mm/Hg ABG HCO3 (19-24) mmol/L ABG O2 Saturation (90-95) % ABG Base Excess (-9-1.8) mEq/L Jonathan Test (Pos) VBG pH 7.43 H (7.36-7.41) VBG pCO2 (38-50) mmHg VBG pO2 mmHg VBG HCO3 mmol/L VBG O2 Saturation % VBG Base Excess mEq/L Barometric Pressure mm/Hg Oxygen Given Sodium 147 H (136-145) mmol/L Potassium 3.2 L (3.5-5.1) mmol/L Chloride 113 H (98-107) mmol/L Carbon Dioxide 22 (21-32) mmol/L Anion Gap 12.0 H (3-11) BUN 42 H (7-18) mg/dl Creatinine 1.30 H D (0.6-1.2) mg/dl Est Cr Clr Drug Dosing 38.1 ml/min Est GFR ( Amer) 46.8 Est GFR (Non-Af Amer) 40.4 BUN/Creatinine Ratio 32.2 H (10-20) Glucose 261 H (70-99) mg/dl POC Glucose 260 H (70-99) Estimat Average Glucose mg/dl Hemoglobin A1c (4.5-5.6) % Lactate (0.4-2.0) mmol/L Calcium 8.2 L (8.5-10.1) mg/dl Ionized Calcium (1.12-1.32) mmol/L Phosphorus 2.0 L (2.5-4.9) mg/dl Magnesium 2.9 H (1.8-2.4) mg/dl Total Bilirubin (0.2-1) mg/dl Direct Bilirubin (0-0.2) mg/dl AST (15-37) U/L ALT (12-78) U/L Alkaline Phosphatase (45-117) U/L Troponin I 0.212 H* (0-0.045) ng/ml Total Protein (6.4-8.2) gm/dl Albumin (3.4-5.0) gm/dl Lipase (73-393) U/L Beta-Hydroxybutyric Acd (0.2-2.81) mg/dl Urine Color Urine Appearance (Clear) Urine pH (4.5-7.5) Ur Specific [place] (1.000-1.030) Urine Protein (Negative) Urine Glucose (UA) (Negative) Urine Ketones (Negative) Urine Blood (Negative) Urine Nitrite (Negative) Urine Bilirubin (Negative) Urine Urobilinogen (Negative) Ur Leukocyte Esterase (Negative) Urine WBC (Auto) (0-5) /hpf Urine RBC (Auto) (0-4) /hpf U Hyaline Cast (Auto) (0-5) /lpf U Epithel Cells (Auto) (0-5) /lpf Urine Bacteria (Auto) (Negative) Nasal Screen MRSA (PCR) (Negative) Blood Type Blood Type Recheck Rho(D) Type Antibody Screen Crossmatch 02/17/19 02/17/19 02/17/19 Range/Units 19:55 19:33 19:10 WBC (4.8-10.8) K/uL RBC (4.2-5.4) M/uL Hgb (12.0-16.0) g/dL Hct (37-47) % MCV (80-100) fL MCH (25-34) pg MCHC (32-36) g/dL RDW Std Deviation (36.4-46.3) fL RDW Coeff of Blaire (11.5-14.5) % Plt Count (130-400) K/uL MPV (7.4-10.4) fL PT (9.0-12.0) Seconds INR (0.9-1.1) ABG pH (7.35-7.45) ABG pCO2 (35-46) mmHg ABG pO2 (80-95) mm/Hg ABG HCO3 (19-24) mmol/L ABG O2 Saturation (90-95) % ABG Base Excess (-9-1.8) mEq/L Jonathan Test (Pos) VBG pH (7.36-7.41) VBG pCO2 (38-50) mmHg VBG pO2 mmHg VBG HCO3 mmol/L VBG O2 Saturation % VBG Base Excess mEq/L Barometric Pressure mm/Hg Oxygen Given Sodium (136-145) mmol/L Potassium (3.5-5.1) mmol/L Chloride (98-107) mmol/L Carbon Dioxide (21-32) mmol/L Anion Gap (3-11) BUN (7-18) mg/dl Creatinine (0.6-1.2) mg/dl Est Cr Clr Drug Dosing ml/min Est GFR ( Amer) Est GFR (Non-Af Amer) BUN/Creatinine Ratio (10-20) Glucose (70-99) mg/dl POC Glucose 357 H* (70-99) Estimat Average Glucose mg/dl Hemoglobin A1c (4.5-5.6) % Lactate (0.4-2.0) mmol/L Calcium (8.5-10.1) mg/dl Ionized Calcium (1.12-1.32) mmol/L Phosphorus (2.5-4.9) mg/dl Magnesium (1.8-2.4) mg/dl Total Bilirubin (0.2-1) mg/dl Direct Bilirubin (0-0.2) mg/dl AST (15-37) U/L ALT (12-78) U/L Alkaline Phosphatase (45-117) U/L Troponin I (0-0.045) ng/ml Total Protein (6.4-8.2) gm/dl Albumin (3.4-5.0) gm/dl Lipase (73-393) U/L Beta-Hydroxybutyric Acd (0.2-2.81) mg/dl Urine Color Yellow Urine Appearance Clear (Clear) Urine pH 5.0 (4.5-7.5) Ur Specific [place] 1.032 H (1.000-1.030) Urine Protein 2+ H (Negative) Urine Glucose (UA) 3+ H (Negative) Urine Ketones 1+ H (Negative) Urine Blood 2+ H (Negative) Urine Nitrite Negative (Negative) Urine Bilirubin Negative (Negative) Urine Urobilinogen Negative (Negative) Ur Leukocyte Esterase Negative (Negative) Urine WBC (Auto) 10-30 H (0-5) /hpf Urine RBC (Auto) 0-4 (0-4) /hpf U Hyaline Cast (Auto) 5-10 H (0-5) /lpf U Epithel Cells (Auto) >30 H (0-5) /lpf Urine Bacteria (Auto) 2+ H (Negative) Nasal Screen MRSA (PCR) Negative (Negative) Blood Type Blood Type Recheck Rho(D) Type Antibody Screen Crossmatch 02/17/19 02/17/19 02/17/19 Range/Units 18:23 18:10 17:55 WBC (4.8-10.8) K/uL RBC (4.2-5.4) M/uL Hgb (12.0-16.0) g/dL Hct (37-47) % MCV (80-100) fL MCH (25-34) pg MCHC (32-36) g/dL RDW Std Deviation (36.4-46.3) fL RDW Coeff of Blaire (11.5-14.5) % Plt Count (130-400) K/uL MPV (7.4-10.4) fL PT (9.0-12.0) Seconds INR (0.9-1.1) ABG pH (7.35-7.45) ABG pCO2 (35-46) mmHg ABG pO2 (80-95) mm/Hg ABG HCO3 (19-24) mmol/L ABG O2 Saturation (90-95) % ABG Base Excess (-9-1.8) mEq/L Jonathan Test (Pos) VBG pH 7.36 (7.36-7.41) VBG pCO2 42 (38-50) mmHg VBG pO2 32 mmHg VBG HCO3 23 mmol/L VBG O2 Saturation 60.8 % VBG Base Excess -2.4 mEq/L Barometric Pressure 733.7 mm/Hg Oxygen Given Sodium (136-145) mmol/L Potassium (3.5-5.1) mmol/L Chloride (98-107) mmol/L Carbon Dioxide (21-32) mmol/L Anion Gap (3-11) BUN (7-18) mg/dl Creatinine (0.6-1.2) mg/dl Est Cr Clr Drug Dosing ml/min Est GFR ( Amer) Est GFR (Non-Af Amer) BUN/Creatinine Ratio (10-20) Glucose (70-99) mg/dl POC Glucose 391 H* (70-99) Estimat Average Glucose mg/dl Hemoglobin A1c (4.5-5.6) % Lactate 2.1 H* (0.4-2.0) mmol/L Calcium (8.5-10.1) mg/dl Ionized Calcium (1.12-1.32) mmol/L Phosphorus (2.5-4.9) mg/dl Magnesium (1.8-2.4) mg/dl Total Bilirubin (0.2-1) mg/dl Direct Bilirubin (0-0.2) mg/dl AST (15-37) U/L ALT (12-78) U/L Alkaline Phosphatase (45-117) U/L Troponin I (0-0.045) ng/ml Total Protein (6.4-8.2) gm/dl Albumin (3.4-5.0) gm/dl Lipase (73-393) U/L Beta-Hydroxybutyric Acd (0.2-2.81) mg/dl Urine Color Urine Appearance (Clear) Urine pH (4.5-7.5) Ur Specific [place] (1.000-1.030) Urine Protein (Negative) Urine Glucose (UA) (Negative) Urine Ketones (Negative) Urine Blood (Negative) Urine Nitrite (Negative) Urine Bilirubin (Negative) Urine Urobilinogen (Negative) Ur Leukocyte Esterase (Negative) Urine WBC (Auto) (0-5) /hpf Urine RBC (Auto) (0-4) /hpf U Hyaline Cast (Auto) (0-5) /lpf U Epithel Cells (Auto) (0-5) /lpf Urine Bacteria (Auto) (Negative) Nasal Screen MRSA (PCR) (Negative) Blood Type Blood Type Recheck Rho(D) Type Antibody Screen Crossmatch 02/17/19 02/17/19 02/17/19 Range/Units 17:55 17:55 17:55 WBC (4.8-10.8) K/uL RBC (4.2-5.4) M/uL Hgb (12.0-16.0) g/dL Hct (37-47) % MCV (80-100) fL MCH (25-34) pg MCHC (32-36) g/dL RDW Std Deviation (36.4-46.3) fL RDW Coeff of Blaire (11.5-14.5) % Plt Count (130-400) K/uL MPV (7.4-10.4) fL PT 10.6 (9.0-12.0) Seconds INR 1.0 (0.9-1.1) ABG pH (7.35-7.45) ABG pCO2 (35-46) mmHg ABG pO2 (80-95) mm/Hg ABG HCO3 (19-24) mmol/L ABG O2 Saturation (90-95) % ABG Base Excess (-9-1.8) mEq/L Jonathan Test (Pos) VBG pH (7.36-7.41) VBG pCO2 (38-50) mmHg VBG pO2 mmHg VBG HCO3 mmol/L VBG O2 Saturation % VBG Base Excess mEq/L Barometric Pressure mm/Hg Oxygen Given Sodium 144 D (136-145) mmol/L Potassium 3.6 (3.5-5.1) mmol/L Chloride 110 H (98-107) mmol/L Carbon Dioxide 22 (21-32) mmol/L Anion Gap 13.0 H (3-11) BUN 49 H (7-18) mg/dl Creatinine 1.72 H D (0.6-1.2) mg/dl Est Cr Clr Drug Dosing 28.8 ml/min Est GFR ( Amer) 33.4 Est GFR (Non-Af Amer) 28.8 BUN/Creatinine Ratio 28.5 H (10-20) Glucose 420 H* (70-99) mg/dl POC Glucose (70-99) Estimat Average Glucose mg/dl Hemoglobin A1c (4.5-5.6) % Lactate (0.4-2.0) mmol/L Calcium 8.8 (8.5-10.1) mg/dl Ionized Calcium 1.10 L (1.12-1.32) mmol/L Phosphorus 2.5 (2.5-4.9) mg/dl Magnesium 2.7 H (1.8-2.4) mg/dl Total Bilirubin 0.4 (0.2-1) mg/dl Direct Bilirubin 0.1 (0-0.2) mg/dl AST 16 (15-37) U/L ALT 25 (12-78) U/L Alkaline Phosphatase 87 (45-117) U/L Troponin I 0.039 (0-0.045) ng/ml Total Protein 7.6 (6.4-8.2) gm/dl Albumin 3.3 L (3.4-5.0) gm/dl Lipase 201 (73-393) U/L Beta-Hydroxybutyric Acd 34.20 H (0.2-2.81) mg/dl Urine Color Urine Appearance (Clear) Urine pH (4.5-7.5) Ur Specific [place] (1.000-1.030) Urine Protein (Negative) Urine Glucose (UA) (Negative) Urine Ketones (Negative) Urine Blood (Negative) Urine Nitrite (Negative) Urine Bilirubin (Negative) Urine Urobilinogen (Negative) Ur Leukocyte Esterase (Negative) Urine WBC (Auto) (0-5) /hpf Urine RBC (Auto) (0-4) /hpf U Hyaline Cast (Auto) (0-5) /lpf U Epithel Cells (Auto) (0-5) /lpf Urine Bacteria (Auto) (Negative) Nasal Screen MRSA (PCR) (Negative) Blood Type Blood Type Recheck Rho(D) Type Antibody Screen Crossmatch 02/17/19 02/17/19 02/17/19 Range/Units 17:55 15:32 13:31 WBC (4.8-10.8) K/uL RBC (4.2-5.4) M/uL Hgb (12.0-16.0) g/dL Hct (37-47) % MCV (80-100) fL MCH (25-34) pg MCHC (32-36) g/dL RDW Std Deviation (36.4-46.3) fL RDW Coeff of Blaire (11.5-14.5) % Plt Count (130-400) K/uL MPV (7.4-10.4) fL PT (9.0-12.0) Seconds INR (0.9-1.1) ABG pH (7.35-7.45) ABG pCO2 (35-46) mmHg ABG pO2 (80-95) mm/Hg ABG HCO3 (19-24) mmol/L ABG O2 Saturation (90-95) % ABG Base Excess (-9-1.8) mEq/L Jonathan Test (Pos) VBG pH (7.36-7.41) VBG pCO2 (38-50) mmHg VBG pO2 mmHg VBG HCO3 mmol/L VBG O2 Saturation % VBG Base Excess mEq/L Barometric Pressure mm/Hg Oxygen Given Sodium (136-145) mmol/L Potassium (3.5-5.1) mmol/L Chloride (98-107) mmol/L Carbon Dioxide (21-32) mmol/L Anion Gap (3-11) BUN (7-18) mg/dl Creatinine (0.6-1.2) mg/dl Est Cr Clr Drug Dosing ml/min Est GFR ( Amer) Est GFR (Non-Af Amer) BUN/Creatinine Ratio (10-20) Glucose (70-99) mg/dl POC Glucose > 600 H* (70-99) Estimat Average Glucose mg/dl Hemoglobin A1c (4.5-5.6) % Lactate (0.4-2.0) mmol/L Calcium (8.5-10.1) mg/dl Ionized Calcium (1.12-1.32) mmol/L Phosphorus (2.5-4.9) mg/dl Magnesium (1.8-2.4) mg/dl Total Bilirubin (0.2-1) mg/dl Direct Bilirubin (0-0.2) mg/dl AST (15-37) U/L ALT (12-78) U/L Alkaline Phosphatase (45-117) U/L Troponin I (0-0.045) ng/ml Total Protein (6.4-8.2) gm/dl Albumin (3.4-5.0) gm/dl Lipase (73-393) U/L Beta-Hydroxybutyric Acd (0.2-2.81) mg/dl Urine Color Urine Appearance (Clear) Urine pH (4.5-7.5) Ur Specific [place] (1.000-1.030) Urine Protein (Negative) Urine Glucose (UA) (Negative) Urine Ketones (Negative) Urine Blood (Negative) Urine Nitrite (Negative) Urine Bilirubin (Negative) Urine Urobilinogen (Negative) Ur Leukocyte Esterase (Negative) Urine WBC (Auto) (0-5) /hpf Urine RBC (Auto) (0-4) /hpf U Hyaline Cast (Auto) (0-5) /lpf U Epithel Cells (Auto) (0-5) /lpf Urine Bacteria (Auto) (Negative) Nasal Screen MRSA (PCR) (Negative) Blood Type O Positive Blood Type Recheck O Positive Rho(D) Type Antibody Screen NEGATIVE Crossmatch See Detail 02/17/19 Range/Units 13:31 WBC (4.8-10.8) K/uL RBC (4.2-5.4) M/uL Hgb (12.0-16.0) g/dL Hct (37-47) % MCV (80-100) fL MCH (25-34) pg MCHC (32-36) g/dL RDW Std Deviation (36.4-46.3) fL RDW Coeff of Blaire (11.5-14.5) % Plt Count (130-400) K/uL MPV (7.4-10.4) fL PT (9.0-12.0) Seconds INR (0.9-1.1) ABG pH (7.35-7.45) ABG pCO2 (35-46) mmHg ABG pO2 (80-95) mm/Hg ABG HCO3 (19-24) mmol/L ABG O2 Saturation (90-95) % ABG Base Excess (-9-1.8) mEq/L Jonathan Test (Pos) VBG pH (7.36-7.41) VBG pCO2 (38-50) mmHg VBG pO2 mmHg VBG HCO3 mmol/L VBG O2 Saturation % VBG Base Excess mEq/L Barometric Pressure mm/Hg Oxygen Given Sodium (136-145) mmol/L Potassium (3.5-5.1) mmol/L Chloride (98-107) mmol/L Carbon Dioxide (21-32) mmol/L Anion Gap (3-11) BUN (7-18) mg/dl Creatinine (0.6-1.2) mg/dl Est Cr Clr Drug Dosing ml/min Est GFR ( Amer) Est GFR (Non-Af Amer) BUN/Creatinine Ratio (10-20) Glucose (70-99) mg/dl POC Glucose (70-99) Estimat Average Glucose mg/dl Hemoglobin A1c (4.5-5.6) % Lactate (0.4-2.0) mmol/L Calcium (8.5-10.1) mg/dl Ionized Calcium (1.12-1.32) mmol/L Phosphorus (2.5-4.9) mg/dl Magnesium (1.8-2.4) mg/dl Total Bilirubin (0.2-1) mg/dl Direct Bilirubin (0-0.2) mg/dl AST (15-37) U/L ALT (12-78) U/L Alkaline Phosphatase (45-117) U/L Troponin I (0-0.045) ng/ml Total Protein (6.4-8.2) gm/dl Albumin (3.4-5.0) gm/dl Lipase (73-393) U/L Beta-Hydroxybutyric Acd (0.2-2.81) mg/dl Urine Color Urine Appearance (Clear) Urine pH (4.5-7.5) Ur Specific [place] (1.000-1.030) Urine Protein (Negative) Urine Glucose (UA) (Negative) Urine Ketones (Negative) Urine Blood (Negative) Urine Nitrite (Negative) Urine Bilirubin (Negative) Urine Urobilinogen (Negative) Ur Leukocyte Esterase (Negative) Urine WBC (Auto) (0-5) /hpf Urine RBC (Auto) (0-4) /hpf U Hyaline Cast (Auto) (0-5) /lpf U Epithel Cells (Auto) (0-5) /lpf Urine Bacteria (Auto) (Negative) Nasal Screen MRSA (PCR) (Negative) Blood Type Cancelled Blood Type Recheck Rho(D) Type Cancelled Antibody Screen Cancelled Crossmatch Medications Administered Current Inpatient Medications Fentanyl Citrate (Fentanyl Citrate) 50 mcg IV Q2H PRN PRN Reason: Moderate Pain (4,5,6) Stop: 03/03/19 18:45 Fentanyl Citrate (Fentanyl Citrate) 100 mcg IV Q2H PRN PRN Reason: Severe Pain (7,8,9,10) Stop: 03/03/19 18:45 Heparin Sodium (Porcine) (Heparin Sodium (Porcine)) 5,000 units SQ Q8 [facility] Stop: 03/20/19 13:59 Last Admin: 02/18/19 10:19 Dose: 5,000 units Documented by: Insulin Human Regular 250 (units/ Sodium Chloride) 250 mls @ 0 mls/hr IV .Q0M [facility]; Protocol Stop: 03/19/19 14:29 Last Titration: 02/18/19 16:01 Dose: 0 units/hr, 0 mls/hr Documented by: Sodium Chloride (Nss) 250 mls @ 15 mls/hr IV .[id number] PRN PRN Reason: For Transfusion Stop: 03/19/19 17:27 Parenteral Electrolytes (Normosol-R) 1,000 mls @ 100 mls/hr IV .Q10H [facility] Stop: 03/19/19 19:44 Last Admin: 02/18/19 11:17 Dose: 100 mls/hr Documented by: Levothyroxine Sodium 37.5 mcg/ (Syringe) 1.875 mls @ 2 mls/min IV DAILY@0900 [facility] Stop: 03/20/19 08:59 Last Admin: 02/18/19 08:54 Dose: 2 mls/min Documented by: Piperacillin Sod/Tazobactam (Sod 4.5 gm/ Dextrose) 120 mls @ 30 mls/hr IV Q8H [facility]; Protocol Stop: 02/26/19 19:59 Last Admin: 02/18/19 17:25 Dose: 30 mls/hr Documented by: Pantoprazole Sodium 40 mg/ (Syringe) 10 mls @ 5 mls/min IV BID@0900,2100 [facility] Stop: 03/20/19 20:59 Potassium Acetate 10 meq/ (Sodium Chloride) 105 mls @ 105 mls/hr IV Q1H [facility] Stop: 02/18/19 22:59 Insulin Aspart (Novolog Flexpen) 0 units SC Q6 [facility] Stop: 03/20/19 17:59 Last Admin: 02/18/19 17:26 Dose: Not Given Documented by: Insulin Glargine (Lantus Solostar Pen) 0 units SC HS ONE; Protocol Stop: 02/18/19 21:01 Metoprolol Tartrate (Lopressor) 5 mg IV Q6 [facility] Stop: 03/20/19 11:59 Last Admin: 02/18/19 17:26 Dose: 5 mg Documented by: Miscellaneous (Pending Order) 1 ea N/A DAILY@1000 [facility] Stop: 03/21/19 09:59 Miscellaneous Information (Consult) 1 ea N/A UD PRN PRN Reason: Consult Stop: 03/19/19 18:45 Miscellaneous Information (Consult Glycemic Management Pharmacy) 1 ea N/A UD PRN PRN Reason: Consult Stop: 03/20/19 14:37 Potassium Phosphate (Potassium Phosphate Replace) 18 mmol IV NOW STA Stop: 02/18/19 17:32 Resident Activity Tracking Resident Involvement: Resident Care Provided Care Provided: Adult Hospital Medicine (1) DKA (diabetic ketoacidoses) Diabetes mellitus complication detail: without coma Diabetes mellitus type: other specified (including PAULA) Qualified Code(s): E13.10 - Other specified diabetes mellitus with ketoacidosis without coma
--- NOTE | 2019-02-18 09:26 | Cardiology Progress Note ---
Date of Service February 18, 2019 Assessment & Plan (1) Abnormal EKG: Troponin mildly elevated last evening 0.212 and again this morning 0.204. Based on the mild troponin elevation and ischemic EKG changes, I would suspect that the patient has myocardial strain in the setting of her acute noncardiac illness. I certainly do not think her presenting symptoms were due to an acute coronary syndrome. She likely has fixed underlying coronary heart disease that may even perhaps be nonobstructive, but the setting of hypertension tachycardia strain is nonetheless present. The patient had 3.1 L of fluid intake yesterday and as of overnight last night 3.5 L of fluid intake. Recommend placing patient on metoprolol tartrate 5 mg IV every 6 first dose now for heart rate, blood pressure control, and I think this will reduce her ischemia and help optimize her for operative intervention tomorrow. (2) Acute gastric volvulus: Subjective Chief complaint: Follow-up abnormal EKG Subjective: Patient comfortable. Denies symptoms suggestive of angina. NG tube in place. BP much improved, HR 98-100 bpm. Blood pressure improved without the demonstration of IV metoprolol overnight last night. Physical Exam Constitutional: + ill appearing Respiratory: normal respiratory effort, lungs clear to auscultation Cardiovascular: Rate/Rhythm: + tachycardic Heart Sounds: no murmur Vessels: no JVD Extremities: no edema Gastrointestinal (Abdomen): Inspection/Auscultation: + abdomen distended Percussion/Palpation: + abdomen tender Neurologic: Conversant, follows commands. Results & Data Vital Signs (Past 12 Hours) Vital Signs Temp Pulse Pulse Resp BP BP Pulse Ox 02/18/19 06:00 98 H 18 150/65 H 93 02/18/19 05:00 36.7 C 103 H 18 138/71 93 02/18/19 04:00 37 C 108 H 20 157/61 H 91 02/18/19 03:00 110 H 16 130/58 L 94 02/18/19 02:00 101 H 16 110/38 L 94 02/18/19 01:00 110 H 16 139/40 L 93 02/18/19 00:00 110 H 18 134/40 L 93 02/17/19 23:00 94 H 23 113/48 L 96 02/17/19 22:00 107 H 20 163/93 H 91 02/17/19 21:52 101 H 118/[address] of the chest performed this morning revealed a large paraesophageal hiatal hernia with organoaxial gastric volvulus per the radiology report. A 5 mm right lower lobe pulmonary nodule is noted. Trace pleural effusions noted. This morning revealed sinus tachycardia 101 bpm, the previously noted ST elevation in inferior leads has improved. 0.5 [address] segment depression noted in the lateral precordial leads. Most recent tracing prior to this from 2326 last night, the lateral ST depression is mildly improved. Echocardiogram had revealed hyperdynamic left ventricular systolic function with no regional wall motion abnormalities last evening.
[2019-02-18] MEDS ORDERED: POTASSIUM ACETATE 20 MEQ in 0.9 % SODIUM CHLORIDE 100 ML IV SCH (09:30)
[2019-02-18 09:33] LABS: Hematocrit (blood only) 41.1 % (37-47); Hemoglobin 13.8 g/dL (12.0-16.0); Mean Corpuscular Hgb Conc 33.6 g/dL (32-36); Mean Platelet Volume 8.6 fL (7.4-10.4); Platelet Count 268 K/uL (130-400); RDW Coefficient of Variation 15.8 % (11.5-14.5); RDW Standard Deviation 50.5 fL (36.4-46.3); Red Blood Count 4.67 M/uL (4.2-5.4); White Blood Count 16.35 K/uL (4.8-10.8)
[2019-02-18] MEDS ORDERED: METOPROLOL TARTRATE 1 MG/ML VIAL IV STA (09:45)
[2019-02-18 09:50] LABS: BUN Creatinine Ratio 33.4 (10-20); Calcium 8.2 mg/dl (8.5-10.1); Creatinine Clr Calc Pharmacy 47.7 ml/min; Est GFR (African American) 61.3; Est GFR (Non-African American) 52.9; Magnesium 3.1 mg/dl (1.8-2.4); Phosphorus 1.7 mg/dl (2.5-4.9); Potassium 3.2 mmol/L (3.5-5.1)
[2019-02-18] MEDS: POTASSIUM ACETATE 10 MEQ in 0.9 % SODIUM CHLORIDE 100 ML IV SCH ×2 (10:17→11:12)
[2019-02-18] MEDS: METOPROLOL TARTRATE 1 MG/ML VIAL IV SCH ×2 (10:17→17:26)
[2019-02-18] MEDS: HEPARIN SOD 5,000 UNIT/0.5 ML VIAL SQ SCH ×2 (10:19→22:01)
--- NOTE | 2019-02-18 10:48 | Gastroenterology Progress Note ---
Date of Service February 18, 2019 Assessment & Plan (1) Hiatal hernia: (2) Volvulus of stomach: Pt is a 73 y/o female who presented to ED w N/V x 2 days, coffee ground emesis, upon eval noted to have leukocytosis, appears dehydrated and in DKA. CT abd/pelvis showed distended stomach w large hiatal hernia and gastric volvulus. Mild peripancreatic inflammatory stranding but normal LFTs and lipase thus less likely having pancreatitis. Surgery for hiatal hernia and volvulus repair postponed till tomorrow so pt can be better optimized pre-op. She appear better hydrated, renal function, electrolytes, blood sugars are improved. Cardiology following, recommending Metoprolol for better HR, BP control. - Keep NPO; IVF bolus and maintenance fluid for hydration - NGT decompression. - DC Protonix gtt, continue Protonix 40mg IV BID. - Surgery scheduled for tomorrow - GI to sign off; please recall if needed. Supervising Physician Co-Signing Physician Notes I have personally seen and examined the patient with COLIN Lawler. Her note reflects my exam and findings. I agree with her impression and plan. More comfortable today with NGT in place. Awaiting surgery. Matias Campos M.D. Subjective Pt was going to be taken to OR for gastric volvulus repair yesterday but upon anesthesia eval, noted to have elevated Troponin. Surgery postponed. She is now in ICU, better hydrated, renal function, electrolytes and blood sugars improving. NGT in place output overnight 450mL. Denies any abd pain, n/v. Cardiology following, doesn't suspect acute coronary syndrome but rather myocardial strain. Plan is for her to undergo volvulus and hernia repair tomorrow in OR by Dr. Barber/Juliette. Review of Systems Review of Systems: All systems reviewed & are unremarkable except as noted in HPI & below Physical Exam Constitutional: WD/WN, vitals as above well groomed, cooperative and comfortable Eyes: PERRL, conjunctivae normal, anicteric sclerae ENMT: external ear and nose normal, oropharynx normal NGT to L nare to suction; drainage appears bilious Respiratory: normal respiratory effort; no respiratory distress and does not use accessory muscles Auscultation: + diminished lung sounds Cardiovascular: RRR, no murmur, no edema Gastrointestinal (Abdomen): Inspection/Auscultation: + hypoactive bowel sounds Percussion/Palpation: + abdomen tender (epigastric ) and abdomen soft Skin: no rashes, warm and dry no jaundice Neurologic: Motor/Sensory: no asterixis Psychiatric: Orientation: alert, oriented x [address] Affect: + depressed affect Lymphatic: no lymphedema Results & Data Vital Signs (Past 12 Hours) Vital Signs Temp Pulse Pulse Resp BP BP Pulse Ox 02/18/19 10:17 105 H 143/62 H 02/18/19 06:00 98 H 18 150/65 H 93 02/18/19 05:00 36.7 C 103 H 18 138/71 93 02/18/19 04:00 37 C 108 H 20 157/61 H 91 02/18/19 03:00 110 H 16 130/58 L 94 02/18/19 02:00 101 H 16 110/38 L 94 02/18/19 01:00 110 H 16 139/40 L 93 02/18/19 00:00 110 H 18 134/40 L 93 02/17/19 23:00 94 H 23 113/48 L 96
[2019-02-18] MEDS ORDERED: HEPARIN IV BOLUS 5,000 UNITS in SYRINGE 0 ML IV SCH (14:00)
[2019-02-18 14:16] LABS: BUN Creatinine Ratio 33.7 (10-20); Calcium 7.8 mg/dl (8.5-10.1); Creatinine Clr Calc Pharmacy 58.3 ml/min; Est GFR (African American) 78.2; Est GFR (Non-African American) 67.5; Magnesium 3.1 mg/dl (1.8-2.4); Potassium 3.5 mmol/L (3.5-5.1)
[2019-02-18 14:30] LABS: Phosphorus 1.5 mg/dl (2.5-4.9)
[2019-02-18] MEDS ORDERED: PHARMACY GLYCEMIC MGMT CONSULT PRN (14:38)
[2019-02-18] MEDS ORDERED: INSULIN GLARGINE SOLOSTAR 100 UNITS/ML 3 ML PEN SC ONE ×2 (14:45→21:00)
--- NOTE | 2019-02-18 14:48 | Hospitalist Progress Note ---
Date of Service February 18, 2019 Assessment & Plan (1) Volvulus of stomach: This is a 73 yr old F who has a significant PMH of T2DM with neuropathy and retinopathy, nonobstructive CAD, HTN, HLD, hypothyroidism, Gerd, hiatal hernia, PVD, senile osteoporosis, hx of R breast ca s/p mastectomy who presents to [facility] secondary to intractable n/v x 2 day. In ED, CT scan abd/pelvis- acute gastric volvulus in setting of large hiatal hernia concerning for gastric outlet obstruction along with inflammatory stranding about the distal pancreatic body and tail concerning for acute pancreatitis -GI and Thoracic surgery consulted -Per Dr. Segovia - Pt to require surgical intervention; however upon anesthesia evaluation pt with ECG changes, elevated trop, DKA -Cardiology cleared as EKG changes, elevated trop unlikely ACS, mostly demand ischemia -DKA- resolved, anion gap resolved. -High risk for surgery but given nature of disease, needs to go for surgery -For volvulus and hernia repair by CT surgery/Surgery tomorrow Present on Admission?: Yes (2) Hematemesis: (3) SIRS (systemic inflammatory response syndrome): Pt with leukocytosis and tachycardia on admission, per CMS guidelines meets SIRS criteria -S/P 2 L IVF -On IV Zosyn empirically- Day 2 -Work up- Blood cx, Urine cx- pending (4) DKA (diabetic ketoacidoses): Blood glucose on arrival 585 with Anion Gap of 16, now resolved Hold oral hypoglycemics Patient received IV insulin while in ED -IVF -IV Insulin drip -Electrolyte replacement (5) Acute kidney injury: Baseline creatinine 0.6, Now resolving Pre renal secondary to above Creatinine 2.2 on presentation -On IVF -Monitor (6) Hypophosphatemia: (7) Diabetes: Last A1c 7.3 on 02/10/2019 Treatment as above (8) CAD (coronary artery disease): No chest pain or shortness of breath ECG -ST segment depression noted in the lateral precordial leads. Recent tracing- EKG changes has mildly improved -Elevated troponin - 0.212, 0.204 -On metoprolol, lisinopril, Crestor, ASA as outpatient (9) HTN (hypertension): -Blood pressure currently stable, monitor closely -On metoprolol, lisinopril, amlodipine as outpatient (10) HLD (hyperlipidemia): -Hold statin (11) DVT prophylaxis: SCDS Disposition: to be determined Follow up: PCP Dr. Truong upon discharge Subjective Pt was going to be taken to OR for gastric volvulus repair yesterday but upon anesthesia eval, noted to have elevated Troponin, DKA. Surgery was postponed. Admitted to ICU. NGT in place output overnight 450mL. Denies any abd pain, n/v. Plan is for her to undergo volvulus and hernia repair tomorrow in OR by Dr. Barber/Juliette. Physical Exam Physical Exam: Constitutional + ill appearing,, Awake, alert, oriented x 3 NG TUBE + Respiratory normal respiratory effort, lungs clear to auscultation Cardiovascular Rate/Rhythm: + tachycardic Heart Sounds: no murmur Vessels: no JVD Extremities: no edema Gastrointestinal (Abdomen) Inspection/Auscultation: + abdomen distended Percussion/Palpation: + abdomen tender Neurologic Conversant, follows commands. Results & Data Vital Signs (Past 12 Hours) Vital Signs Temp Pulse Pulse Resp BP BP Pulse Ox 02/18/19 14:01 94 H 15 168/78 H 93 02/18/19 13:01 90 13 169/73 H 91 02/18/19 12:00 37.2 C 85 14 164/69 H 92 02/18/19 11:01 87 13 147/65 H 91 02/18/19 10:17 105 H 143/62 H 02/18/19 10:01 107 H 18 143/62 H 94 02/18/19 10:00 97 H 16 93 02/18/19 09:40 96 H 17 159/70 H 93 02/18/19 09:01 92 H 15 159/70 H 92 02/18/19 08:40 36.4 C L 112 H 19 143/66 H 95 02/18/19 08:15 92 02/18/19 07:00 95 H 20 93 02/18/19 06:00 98 H 18 150/65 H 93 02/18/19 05:00 36.7 C 103 H 18 138/71 93 02/18/19 04:00 37 C 108 H 20 157/61 H 91 02/18/19 03:00 110 H 16 130/58 L 94 (1) DKA (diabetic ketoacidoses) Diabetes mellitus complication detail: without coma Diabetes mellitus type: other specified (including PAULA) Qualified Code(s): E13.10 - Other specified diabetes mellitus with ketoacidosis without coma (2) Hematemesis Nausea presence: unspecified Qualified Code(s): K92.0 - Hematemesis
--- NOTE | 2019-02-18 14:55 | Pharmacy Report ---
Glycemic Control Consultation - Date of Service February 18, 2019 - Scope Scope: Glycemic Pharmacist consulted by Dr Cox on 02/18 for glycemic control and to write orders per [facility] inpatient glycemic control protocol - Objective Weight: 87.4 kg Accuchecks BSG (last 24hrs): 02/17/19 02/17/19 02/17/19 15:32 17:05 17:55 Glucose 420 H* POC Glucose > 600 H* 441 H* 02/17/19 02/17/19 02/17/19 18:23 19:33 21:20 Glucose POC Glucose 391 H* 357 H* 260 H 02/17/19 02/17/19 02/17/19 22:01 22:28 23:23 Glucose 261 H POC Glucose 230 H 230 H 02/18/19 02/18/19 02/18/19 01:45 01:46 02:26 Glucose 210 H POC Glucose 193 H 174 H 02/18/19 02/18/19 02/18/19 02:58 03:33 05:06 Glucose POC Glucose 173 H 176 H 224 H 02/18/19 02/18/19 02/18/19 05:41 05:42 06:30 Glucose 220 H POC Glucose 200 H 179 H 02/18/19 02/18/19 02/18/19 07:45 09:05 09:09 Glucose 158 H POC Glucose 162 H 143 H 02/18/19 02/18/19 02/18/19 10:09 11:09 12:21 Glucose POC Glucose 135 H 122 H 125 H 02/18/19 13:42 Glucose 130 H POC Glucose Laboratory Data (last 24hrs): 02/17/19 02/17/19 02/17/19 13:31 17:55 22:01 Potassium 3.6 3.2 L Carbon Dioxide 22 22 Anion Gap 13.0 H 12.0 H Creatinine 1.72 H D 1.30 H D Est Cr Clr Drug Dosing 28.8 38.1 Beta-Hydroxybutyric Acd 60.17 H 34.20 H 02/18/19 02/18/19 02/18/19 01:45 05:41 09:09 Potassium 3.8 D 3.4 L 3.2 L Carbon Dioxide 24 22 25 Anion Gap 8.0 11.0 9.0 Creatinine 1.26 H 1.11 1.04 Est Cr Clr Drug Dosing 39.4 44.7 47.7 Beta-Hydroxybutyric Acd 02/18/19 13:42 Potassium 3.5 Carbon Dioxide 28 Anion Gap 4.0 Creatinine 0.85 Est Cr Clr Drug Dosing 58.3 Beta-Hydroxybutyric Acd HbA1c: Hemoglobin A1c 7.6 % (4.5-5.6) H 02/18/19 01:45 - Recent Pertinent Medications Outpatient Anti-diabetic Regimen: * glipizide 20 mg daily, metformin 1000 mg BID, empagliflozin 10 mg daily * A1c = 7.6 % 02/18 The patient is currently receiving: * Insulin infusion @1.5 units/hr Risk Factors for Insulin Resistance: * Infection: Zosyn * Diet: NPO - Assessment & Plan Assessment & Plan: ASSESSMENT: * 73 yo female admitted for gastric volvulus, plan for surgery tomorrow, delayed for EKG changes * On oral agents as outpatient, BSG was 585 on admission and started on insulin drip, BSGs have improved and drip rate is now 1.5 units/hr * Will give 15 units of lantus x 1 to assist with transition off of insulin drip and initiate weight based stress of two novolog * Patient is currently NPO PLAN FOR INPATIENT GLYCEMIC CONTROL: * Insulin infusion currently running at 1.5 units/hr, transitioning off of drip, discontinue when rate <2, and two consecutive BSGs within range after lantus is given or held per protocol or 6 hours * Holding outpatient oral diabetes medications * Basal insulin * Lantus 15 units x 1 now * Scale for PM * 0 if BSG <160 * 8 units BSG 160-200 * 15 units BSG >200 * Bolus insulin * NovoLog per scale ACHS or Q6hrs while NPO * Goal Range: Low 140 mg/dL - High 180 mg/dL * Correction Factor: 25 mg/dL/unit * Nutritional / Prandial insulin per carb ratio of 1 unit per 10 grams CHO consumed * Please note that the plan above was derived based on current level of insulin resistance and hospital stress. These recommendations are appropriate for inpatient admission only. Plan of care upon discharge will need to be reassessed to avoid potential outpatient hypo/hyperglycemia. Thank you.
--- NOTE | 2019-02-18 17:09 | Progress Note ---
DATE: 02/18/2019 The patient is seen today. She looks better and feels better. I discussed this case with Dr. Shiv Cox as well as Anesthesia and discussed this case with Dr. Hector Cole from Cardiology. Due to scheduling, I have asked Dr. Mao Barber to take a look at this patient. This will facilitate us getting her on the schedule for tomorrow. I would like to wait till tomorrow as the patient is getting better. Dr. Cole also feels from a Cardiology standpoint, she will be safer to go tomorrow. All of her numbers have improved. CT scan of her chest was performed and shows she does have a huge hiatal hernia and she does have gastric problems; however, she has an NG tube in all parts of her stomach. Her EKG changes are worrisome; however, Dr. Cole was pleased with her echocardiogram overall. She definitely needs to be operated on, but at this point with her improvement across the board and in fact her white count has dropped from 27,000 to 16,000 and her hemoglobin has dropped from 17.4 to 13.8 indicating hemoconcentration. In addition, her BUN and creatinine has dropped to 29 and 0.85, which makes me feel much better. Her blood sugars have also been much better controlled. I had a long talk with the patient and her . Dr. Barber and I are going to proceed with a laparoscopic repair of this hiatal hernia tomorrow. [facility] MEDICAL CENTERMelissa
[2019-02-18] MEDS ORDERED: POTASSIUM PHOS 3 MMOL/1 ML INFUSION IV STA (17:31)
[2019-02-18] MEDS ORDERED: POTASSIUM PHOSPHATE 18 MMOL in SODIUM CHLORIDE 0.9% 500 ML IV ONE (18:45)
[2019-02-18] MEDS: PANTOprazole 40 MG in SYRINGE 0 ML IV SCH (21:09)
[2019-02-19] MEDS: INSULIN ASPART 100 UNITS/ML 3 ML PEN SC SCH ×5 (00:04→20:52)
[2019-02-19] MEDS: METOPROLOL TARTRATE 1 MG/ML VIAL IV SCH ×4 (00:06→17:30)
[2019-02-19] MEDS: POTASSIUM ACETATE 10 MEQ in 0.9 % SODIUM CHLORIDE 100 ML IV SCH ×2 (00:06→01:10)
[2019-02-19 01:17] LABS: Basophils # (auto) 0.02 K/uL (0-0.2); Basophils % (auto) 0.2 %; Eosinophils # (auto) 0.01 K/uL (0-0.5); Eosinophils % (auto) 0.1 %; Hemoglobin 12.5 g/dL (12.0-16.0); Immature Granulocytes # (auto) 0.05 K/uL (0.00-0.02); Immature Granulocytes % (auto) 0.4 %; Lymphocytes # (auto) 1.28 K/uL (1.2-3.4); Lymphocytes % (auto) 10.1 %; Mean Corpuscular Hgb Conc 32.1 g/dL (32-36); Mean Corpuscular Volume 89.2 fL (80-100); Mean Platelet Volume 8.5 fL (7.4-10.4); Monocytes # (auto) 1.25 K/uL (0.11-0.59); Monocytes % (auto) 9.9 %; Neutrophils # (auto) 10.01 K/uL (1.4-6.5); Neutrophils % (auto) 79.3 %; Platelet Count 218 K/uL (130-400); RDW Coefficient of Variation 15.7 % (11.5-14.5); RDW Standard Deviation 51.3 fL (36.4-46.3); Red Blood Count 4.37 M/uL (4.2-5.4); White Blood Count 12.62 K/uL (4.8-10.8)
[2019-02-19 01:45] LABS: BUN Creatinine Ratio 40.1 (10-20); Creatinine Clr Calc Pharmacy 91.8 ml/min; Est GFR (African American) 107.7; Magnesium 2.9 mg/dl (1.8-2.4); Phosphorus 2.6 mg/dl (2.5-4.9); Potassium 3.7 mmol/L (3.5-5.1)
[2019-02-19] MEDS: PIPERACILLIN/TAZOBACTAM 4.5 GM in DEXTROSE 5% 100 ML IV SCH ×3 (02:10→17:32)
[2019-02-19 04:54] LABS: Basophils # (auto) 0.02 K/uL (0-0.2); Basophils % (auto) 0.2 %; Eosinophils # (auto) 0.02 K/uL (0-0.5); Eosinophils % (auto) 0.2 %; Hematocrit (blood only) 38.2 % (37-47); Hemoglobin 12.9 g/dL (12.0-16.0); Immature Granulocytes # (auto) 0.06 K/uL (0.00-0.02); Immature Granulocytes % (auto) 0.5 %; Lymphocytes # (auto) 1.54 K/uL (1.2-3.4); Lymphocytes % (auto) 11.7 %; Mean Corpuscular Hgb Conc 33.8 g/dL (32-36); Mean Platelet Volume 8.4 fL (7.4-10.4); Monocytes % (auto) 8.4 %; Platelet Count 233 K/uL (130-400); RDW Coefficient of Variation 15.6 % (11.5-14.5); RDW Standard Deviation 50.7 fL (36.4-46.3); Red Blood Count 4.34 M/uL (4.2-5.4); White Blood Count 13.14 K/uL (4.8-10.8)
[2019-02-19 05:10] LABS: Alanine Aminotransferase 22 U/L (12-78); Albumin Level 2.4 gm/dl (3.4-5.0); Aspartate Aminotransferase 21 U/L (15-37); BUN Creatinine Ratio 37.1 (10-20); Bilirubin Direct < 0.1 mg/dl (0-0.2); Blood Urea Nitrogen 20 mg/dl (7-18); Calcium 7.1 mg/dl (8.5-10.1); Carbon Dioxide 26 mmol/L (21-32); Chloride 116 mmol/L (98-107); Creatinine Clr Calc Pharmacy 91.8 ml/min; Est GFR (African American) 107.7; Glucose 111 mg/dl (70-99); Magnesium 2.9 mg/dl (1.8-2.4); Potassium 3.5 mmol/L (3.5-5.1); Sodium 149 mmol/L (136-145)
[2019-02-19 05:50] LABS: Alkaline Phosphatase 78 U/L (45-117); Bilirubin,Total 0.5 mg/dl (0.2-1); Phosphorus 1.9 mg/dl (2.5-4.9); Total Protein 6.1 gm/dl (6.4-8.2); Troponin I 0.064 ng/ml (0-0.045)
[2019-02-19] MEDS: HEPARIN SOD 5,000 UNIT/0.5 ML VIAL SQ SCH ×3 (06:13→20:52)
[2019-02-19] MEDS: PANTOprazole 40 MG in SYRINGE 0 ML IV SCH ×2 (07:41→21:28)
--- NOTE | 2019-02-19 07:43 | Cardiology Progress Note ---
Date of Service February 19, 2019 Assessment & Plan (1) Abnormal EKG: (2) Volvulus of stomach: Stable HR and BP. No events on telemetry overnight. Tolerated metoprolol IV 7.5 mg at midnight and again at 6:16 this am. Troponin minimally elevated in setting of acute systemic illness, and has tren ded down. EKG improved. EKG and Troponin consistent with myocardial strain in setting of acute illness, rather than acute intracoronary plaque rupture. Continue IV beta yolanda. Stable for OR from cardiac perspective. Monitor sodium, hypernatremia noted. Subjective CC: follow up abnormal EKG Subjective: Patient alert, comfortable. Denies angina. Physical Exam Constitutional: + ill appearing Respiratory: normal respiratory effort, lungs clear to auscultation Cardiovascular: RRR, no murmur, no edema Vessels: no JVD Extremities: no edema Knee high SCDs in place on lower extremities Gastrointestinal (Abdomen): Percussion/Palpation: abdomen nontender, no guarding and abdomen not rigid Neurologic: moves all extremities and + focal motor deficit Genitourinary: clear urine draining from Marie catheter Results & Data Vital Signs (Past 12 Hours) Vital Signs Temp Pulse Resp BP Pulse Ox 02/19/19 06:16 93 H 167/71 H 02/19/19 06:00 90 16 167/71 H 93 02/19/19 05:01 92 H 19 164/65 H 92 02/19/19 04:01 90 15 171/76 H 92 02/19/19 04:00 37.4 C 02/19/19 03:01 87 15 162/65 H 93 02/19/19 02:01 82 14 143/67 H 92 02/19/19 01:01 91 H 16 164/73 H 93 02/19/19 00:06 97 H 177/75 H 02/19/19 00:01 93 H 17 177/75 H 91 02/18/19 23:01 93 H 14 174/68 H 93 02/18/19 22:01 94 H 19 181/82 H 92 02/18/19 21:01 111 H 16 177/78 H 93 02/18/19 20:01 97 H 17 178/74 H 93 Laboratory Results Cardiac Enzymes 02/19/19 Range/Units 04:30 AST 21 (15-37) U/L Troponin I 0.064 H* (0-0.045) ng/ml CBC 02/18/19 02/19/19 02/19/19 Range/Units 09:09 01:06 04:30 WBC 16.35 H D 12.62 H 13.14 H (4.8-10.8) K/uL RBC 4.67 4.37 4.34 (4.2-5.4) M/uL Hgb 13.8 12.5 12.9 (12.0-16.0) g/dL Hct 41.1 39.0 38.2 (37-47) % Plt Count 268 218 233 (130-400) K/uL Neut # (Auto) 10.01 H 10.40 H (1.4-6.5) K/uL Lymph # (Auto) 1.28 1.54 (1.2-3.4) K/uL Storey # (Auto) 1.25 H 1.10 H (0.11-0.59) K/uL Eos # (Auto) 0.01 0.02 (0-0.5) K/uL Baso # (Auto) 0.02 0.02 (0-0.2) K/uL Comprehensive Metabolic Panel 02/18/19 02/18/19 02/19/19 Range/Units 09:09 13:42 01:06 Sodium 150 H 149 H 150 H (136-145) mmol/L Potassium 3.2 L 3.5 3.7 (3.5-5.1) mmol/L Chloride 116 H 117 H 118 H (98-107) mmol/L Carbon Dioxide 25 28 25 (21-32) mmol/L BUN 35 H 29 H 22 H (7-18) mg/dl Creatinine 1.04 0.85 0.54 L D (0.6-1.2) mg/dl Glucose 158 H 130 H 110 H (70-99) mg/dl Calcium 8.2 L 7.8 L 7.0 L (8.5-10.1) mg/dl Direct Bilirubin (0-0.2) mg/dl AST (15-37) U/L ALT (12-78) U/L Alkaline Phosphatase (45-117) U/L Total Protein (6.4-8.2) gm/dl Albumin (3.4-5.0) gm/dl 02/19/19 Range/Units 04:30 Sodium 149 H (136-145) mmol/L Potassium 3.5 (3.5-5.1) mmol/L Chloride 116 H (98-107) mmol/L Carbon Dioxide 26 (21-32) mmol/L BUN 20 H (7-18) mg/dl Creatinine 0.54 L (0.6-1.2) mg/dl Glucose 111 H (70-99) mg/dl Calcium 7.1 L (8.5-10.1) mg/dl Direct Bilirubin < 0.1 (0-0.2) mg/dl AST 21 (15-37) U/L ALT 22 (12-78) U/L Alkaline Phosphatase 78 (45-117) U/L Total Protein 6.1 L (6.4-8.2) gm/dl Albumin 2.4 L (3.4-5.0) gm/dl Intake and Output 02/18/19 02/19/19 02/19/19 22:59 06:59 14:59 Intake Total 1151.42 / 6815.639 836 / 6815.639 0 / 0 Output Total 877 / 2504 826 / 2504 1 / Balance 274.42 / 4311.639 10 / 4311.639 -1 / -1 Intake: IV 1121.42 / 4665.639 836 / 4665.639 0 / 0 NovoLIN R 250 UNITS In Nss 247. 1.42 / 22.972 0 / 0 5 ml @ 0 UNITS/HR IV .Q0M [facility] Rx#:[id number] Normosol-R 1,000 ml @ 100 mls/ 1000 / 2716.667 hr IV .Q10H [facility] Rx#:[id number] Zosyn 4.5 gm In D5 100 ml @ 30 120 / 480 120 / 480 mls/hr IV Q8H [facility] Rx#:[id number] Potassium Acetate 10 Meq In 210 / 210 Sodium Chloride 100 ml @ 105 mls/hr IV Q1H [facility] Rx#:[id number] Potassium Phosphate 18 Mmol In 506 / 506 Nss 500 ml @ 88 mls/hr IV ONE ONE Rx#:[id number] Oral 30 / 150 Output: Urine 275 / 275 Urine Amount (Catheter) 2124 / 2124 Marie/Indwelling 2124 / 2124 # Bowel Movements Other: Weight 90.4 kg Diagnostic Findings EKG performed this am reveals SR, previously noted inferior ST elevation has resolved. Mild lateral ST depression , improved compared to 02/18/19. Medications Administered Current Inpatient Medications Fentanyl Citrate (Fentanyl Citrate) 50 mcg IV Q2H PRN PRN Reason: Moderate Pain (4,5,6) Stop: 03/03/19 18:45 Fentanyl Citrate (Fentanyl Citrate) 100 mcg IV Q2H PRN PRN Reason: Severe Pain (7,8,9,10) Stop: 03/03/19 18:45 Heparin Sodium (Porcine) (Heparin Sodium (Porcine)) 5,000 units SQ Q8 [facility] Stop: 03/20/19 13:59 Last Admin: 02/19/19 06:13 Dose: Not Given Documented by: Sodium Chloride (Nss) 250 mls @ 15 mls/hr IV .[id number] PRN PRN Reason: For Transfusion Stop: 03/19/19 17:27 Parenteral Electrolytes (Normosol-R) 1,000 mls @ 100 mls/hr IV .Q10H [facility] Stop: 03/19/19 19:44 Last Admin: 02/18/19 22:01 Dose: 100 mls/hr Documented by: Levothyroxine Sodium 37.5 mcg/ (Syringe) 1.875 mls @ 2 mls/min IV DAILY@0900 [facility] Stop: 03/20/19 08:59 Last Admin: 02/18/19 08:54 Dose: 2 mls/min Documented by: Piperacillin Sod/Tazobactam (Sod 4.5 gm/ Dextrose) 120 mls @ 30 mls/hr IV Q8H [facility]; Protocol Stop: 02/26/19 19:59 Last Infusion: 02/19/19 06:10 Dose: Infused Documented by: Pantoprazole Sodium 40 mg/ (Syringe) 10 mls @ 5 mls/min IV BID@0900,2100 [facility] Stop: 03/20/19 20:59 Last Admin: 02/19/19 07:41 Dose: 5 mls/min Documented by: Insulin Aspart (Novolog Flexpen) [address] [facility] Stop: 03/20/19 17:59 Last Admin: 02/19/19 06:29 Dose: Not Given Documented by: Insulin Glargine (Lantus Solostar Pen) 0 units SC TODAY@1800 [facility]; Protocol Stop: 03/21/19 17:59 Metoprolol Tartrate (Lopressor) 7.5 mg IV Q6 [facility] Stop: 03/21/19 00:00 Last Admin: 02/19/19 06:16 Dose: 7.5 mg Documented by: Miscellaneous Information (Consult) 1 ea N/A UD PRN PRN Reason: Consult Stop: 03/19/19 18:45 Miscellaneous Information (Consult Glycemic Management Pharmacy) 1 ea N/A UD PRN PRN Reason: Consult Stop: 03/20/19 14:37
[2019-02-19] MEDS ORDERED: MIDAZOLAM HCL 1 MG/ML 2ML VIAL ONE (07:45)
[2019-02-19] MEDS ORDERED: fentaNYL citrate 100 MCG/2 ML VIAL ONE ×2 (07:46→11:07)
--- NOTE | 2019-02-19 07:46 | Anesthesiology Consultation ---
Date of Service February 19, 2019 Assessment & Plan (1) Encounter for pre-operative examination: Chart Review Chart Review: Acceptable Risk for Surgery Consults Requested none ASA ASA4 Proposed Anesthesia Anesthesia Type: General Anesthesia Line Insertion: Arterial line Risk / Benefits Reviewed With: PT / POA / Parent / Guardian, Accepts Plan and Informed Consent Obtained History Surgery Operation Date: 02/17/19 07:00 Proposed Procedures p Laparoscopic Hiatal Hernia Repair - Dell Segovia MD, FACS Operation Date: 02/19/19 08:10 Proposed Procedures p Laparoscopic Hernia Hiatal Hernia - Mao Barber, Height/Weight Height: 5 ft 1 in Weight: 90.4 kg Allergies Allergy/AdvReac Type Severity Reaction Status Date / Time No Known Allergies Allergy Verified 02/17/19 13:52 Medications Home Medications Medication Instructions Recorded Confirmed Last Taken alendronate 70 mg PO WK 02/17/19 02/17/19 Unknown amlodipine 5 mg PO DAILY 02/17/19 02/17/19 Unknown aspirin [Aspirin Low Dose] 81 mg PO DAILY 02/17/19 02/17/19 Unknown cholecalciferol (vitamin D3) 2,000 unit PO DAILY 02/17/19 02/17/19 Unknown [Vitamin D3] diclofenac sodium 1 applic TOPICAL Q6H PRN 02/17/19 02/17/19 Unknown empagliflozin [Jardiance] 10 mg PO DAILY 02/17/19 02/17/19 Unknown ferrous sulfate 1 tab PO BID 02/17/19 02/17/19 Unknown glipizide 20 mg PO DAILY 02/17/19 02/17/19 Unknown levothyroxine 75 mcg PO DAILY 02/17/19 02/17/19 Unknown lisinopril 5 mg PO DAILY 02/17/19 02/17/19 Unknown metformin 1,000 mg PO BID 02/17/19 02/17/19 Unknown metoprolol tartrate 50 mg PO BID 02/17/19 02/17/19 Unknown omeprazole 20 mg PO DAILY 02/17/19 02/17/19 Unknown ondansetron 1 tab TRANSLINGUAL Q8H PRN 02/17/19 02/17/19 Unknown rosuvastatin [Crestor] 40 mg PO DAILY 02/17/19 02/17/19 Unknown triamcinolone acetonide 1 applic TOPICAL BID 02/17/19 02/17/19 Unknown triamterene-hydrochlorothiazid 1 cap PO DAILY 02/17/19 02/17/19 Unknown Active Medications Generic Name Dose Route Start Last Admin Trade Name Veronica PRN Reason Stop Dose Admin Heparin Sodium (Porcine) 5,000 units 02/18/19 14:00 02/19/19 06:13 Heparin Sodium (Porcine) SQ 03/20/19 13:59 Not Given Q8 GILMA Parenteral Electrolytes 1,000 mls @ 100 mls/hr 02/17/19 19:45 02/18/19 22:01 Normosol-R IV 03/19/19 19:44 100 mls/hr .Q10H GILMA Administration Levothyroxine Sodium 37.5 mcg/ 1.875 mls @ 2 mls/min 02/18/19 09:00 02/18/19 08:54 Syringe IV 03/20/19 08:59 2 mls/min DAILY@0900 GILMA Administration Piperacillin Sod/Tazobactam 120 mls @ 30 mls/hr 02/17/19 02:00 02/19/19 06:10 Sod 4.5 gm/ Dextrose IV 02/26/19 19:59 Infused Q8H GILMA Infusion Protocol Pantoprazole Sodium 40 mg/ 10 mls @ 5 mls/min 02/18/19 21:00 02/19/19 07:41 Syringe IV 03/20/19 20:59 5 mls/min BID@0900,2100 GILMA Administration Insulin Aspart 0 units 02/18/19 18:00 02/19/19 06:29 Novolog Flexpen SC 03/20/19 17:59 Not Given Q6 GILMA Metoprolol Tartrate 7.5 mg 02/19/19 00:00 02/19/19 06:16 Lopressor IV 03/21/19 00:00 7.5 mg Q6 GILMA Administration NPO Date Last Intake of Fluids: 02/17/19 Time Last Intake of Fluids: 08:00 Date Last Intake of Solids: 02/17/19 Time Last Intake of Solids: 08:00 Past Medical History Medical History Volvulus of stomach Diabetic neuropathy (Chronic) Diabetic retinopathy (Chronic) Hypothyroidism (Chronic) HLD (hyperlipidemia) (Chronic) HTN (hypertension) (Chronic) CAD (coronary artery disease) (Chronic) mild to moderate obstructive disease per left heart cath GERD (gastroesophageal reflux disease) (Chronic) Hiatal hernia (Chronic) Diverticulosis (Chronic) Senile osteoporosis (Chronic) Breast cancer, right (Chronic) PVD (peripheral vascular disease) (Chronic) Diabetes (Chronic) Exercise / Class Metabolic Activity II 4-5 Yardwork/Stairs/Walk up hill Past Family History Family History Mother Coronary heart disease Father Alzheimer disease Sister Diabetes Coronary heart disease Brother Coronary heart disease Other Family history non-contributory Past Surgical History Surgical History History of colonoscopy with polypectomy (Chronic) History of esophagogastroduodenoscopy (EGD) (Chronic) erosive gastropathy History of partial mastectomy of right breast (Chronic) History of arthroscopy of knee (Chronic) H/O cardiac catheterization no stents Past Anesthesia History No Hx of Anesthesia Complications and No Family Hx of Anesthesia Complications History of PONV No Hx of PONV and No Hx of Motion Sickness Social History Smoking Status: Never smoker Do You Dip or Chew Tobacco: No Hx Alcohol Use: No Hx Substance Use: No Physical Exam Vital Signs Last Vital Signs Temp 99.3 F 02/19/19 04:00 Pulse 93 H 02/19/19 06:16 Resp 16 02/19/19 06:00 BP 167/71 H 02/19/19 06:16 Pulse Ox 93 02/19/19 06:00 ENMT Mouth: + edentulous Thyromental Distance: > or= 3.5 Finger Breadths Mallampati Class: II Neck + abnormal visual inspection (RIJ in place) and neck extension not limited Respiratory normal respiratory effort Auscultation: lungs clear to auscultation bilaterally Cardiovascular Rate/Rhythm: regular rate and regular rhythm Testing Electrocardiogram Date: 02/19/19 Findings: + NSR @ (87 bpm) Normal sinus rhythm Nonspecific ST and T wave abnormality When compared with ECG of 18-FEB-2019 09:16, T wave inversion no longer evident in Lateral leads Echocardiogram Date: 02/17/19 EF: >70% LV/RV is hyperdynamic There is normal LV wall thickness LV wall motion is normal No regional wall motion abnormalities There is no significant valvular disease Cardiac Catheterization Date: 02/17/19 1. Mild to moderate early atherosclerotic CAD with a smooth 40% narrowing of the proximal LAD. Mild luminal irregularities of other vasculature 2. Hypedynamic LV function 3. Probable hypertensive heart disease 4. EF: 65% Other Testing CT Chest 02/18/19 IMPRESSION: 1. Large paraesophageal hiatal hernia with a organoaxial gastric volvulus 2. Solid 5 mm right lower lobe pulmonary nodule. In a high risk patient, a 12 month follow-up is optional. 3. Trace pleural effusions 4. Lingular and left lower lobe airspace opacities, atelectatic versus infectious/inflammatory 5. Minimal infiltration of the peripancreatic fat 6. Cholelithiasis Abdominal CT FINDINGS: Linear subsegmental groundglass opacities of the left lung base suggest atelectasis and/or scarring. Right lung base is generally clear. No pneumatosis or pneumoperitoneum. Imaged inferior cardiac chambers are mildly enlarged with coronary arterial calcifications noted. There are large gallstones noted about the gallbladder lumen without CT evidence of acute cholecystitis. No biliary ductal dilation. Hepatic steatosis. No evidence of cirrhosis or focal hepatic mass lesion. The spleen appears unremarkable. Mild right and moderate left adrenal gland thickening. Mild inflammatory stranding is noted about the distal pancreatic body and tail. Pancreas otherwise appears unremarkable. Mild nonspecific left perinephric stranding. Right kidney and bilateral ureters are unremarkable. Urinary bladder, uterus and adnexa are within normal limits. Extensive calcification of the aorta without aneurysm. No adenopathy. 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 The stomach is moderately fluid distended. The distal stomach and duodenum are decompressed. There is no small bowel obstruction. Colonic diverticulosis without acute diverticulitis. The majority of the large bowel is decompressed. The terminal ileum and appendix appear normal. No drainable fluid collection. Soft tissues appear unremarkable. Degenerative changes of the pelvis, hips and spine. Demineralized appearance of the bones without acute fracture or suspicious bone lesion identified. IMPRESSION: 1. Moderately distended stomach with large hiatal hernia and suggested organoaxial gastric volvulus. Correlate clinically to exclude gastric outlet obstruction. 2. Mild inflammatory stranding about the distal pancreatic body and tail. Correlate with lipase level to exclude acute pancreatitis. 3. Cholelithiasis without CT evidence of acute cholecystitis or biliary ductal dilation. 4. Colonic diverticulosis without definite CT evidence of acute diverticulitis. 5. Normal appendix. 6. Hepatic steatosis. 7. Additional findings as above. Laboratory Results 02/19/19 04:30 02/19/19 04:30 Blood Type O Positive 02/17/19 17:55 Rho(D) Type Cancelled 02/17/19 13:31 Antibody Screen NEGATIVE 02/17/19 17:55 PT 10.6 Seconds (9.0-12.0) 02/17/19 17:55 INR 1.0 (0.9-1.1) 02/17/19 17:55 Hemoglobin A1c 7.6 % (4.5-5.6) H 02/18/19 01:45 Urine Color Yellow 02/17/19 19:55 Urine Appearance Clear (Clear) 02/17/19 19:55 Urine pH 5.0 (4.5-7.5) 02/17/19 19:55 Ur Specific [place] 1.032 (1.000-1.030) H 02/17/19 19:55 Urine Protein 2+ (Negative) H 02/17/19 19:55 Urine Glucose (UA) 3+ (Negative) H 02/17/19 19:55 Urine Ketones 1+ (Negative) H 02/17/19 19:55 Urine Nitrite Negative (Negative) 02/17/19 19:55 Ur Leukocyte Esterase Negative (Negative) 02/17/19 19:55 Urine WBC (Auto) 10-30 /hpf (0-5) H 02/17/19 19:55 Urine RBC (Auto) 0-4 /hpf (0-4) 02/17/19 19:55 U Hyaline Cast (Auto) 5-10 /lpf (0-5) H 02/17/19 19:55 U Epithel Cells (Auto) >30 /lpf (0-5) H 02/17/19 19:55 Urine Bacteria (Auto) 2+ (Negative) H 02/17/19 19:55 02/17/19 15:55 Blood Culture - Preliminary Blood No growth to date. 02/17/19 15:49 Blood Culture - Preliminary Blood No growth to date. 02/17/19 19:55 Urine Culture - Preliminary Urine,Clean Catch Group B Beta Strep 02/19/19 02/19/19 02/18/19 06:21 00:04 20:50 POC Glucose 108 H 109 H 112 H
[2019-02-19] MEDS: LEVOTHYROXINE SODIUM 37.5 MCG in SYRINGE 0 ML IV SCH (08:07)
--- NOTE | 2019-02-19 08:10 | History & Physical Bridge Note ---
Date of Service February 19, 2019 History & Physical Bridge Note I have examined the patient, reviewed the History & Physical and in the interval since the performance of the History & Physical I have noted the following changes of clinical significance: no changes noted. pt clincially improved/medically better for surgery. had long discussion with pt and daughter ( Jennifer) regarding her diagnosis, options and risks ( bleeding/infection/dvt/pe/mi/cva/injury to organs such as diaphragm, esophagus, spleen, stomach, and even ). questions answered. will proceed with laparoscopic/poss open reduction of gastric incarceration with repair of paraesophageal hernia, possible mesh).
[2019-02-19] MEDS ORDERED: ACETAMINOPHEN 1000 MG/100 ML IV IV ONE (08:17)
[2019-02-19] MEDS ORDERED: BUPIVACAINE/EPINEPHRINE 0.5% MPF 1:200,000 30 ML VIAL ONE (08:30)
[2019-02-19] MEDS ORDERED: CEFAZOLIN 2000MG 2,000 MG/15 ML SYR IV ONE (09:54)
[2019-02-19] MEDS ORDERED: ROCURONIUM BROMIDE 10 MG/ML 5 ML VIAL ONE (09:57)
[2019-02-19] MEDS ORDERED: CEFAZOLIN 250 MG/ML 1 GM VIAL ONE (09:57)
[2019-02-19] MEDS ORDERED: ONDANSETRON INJ 2 MG/ML 2 ML VIAL ONE (09:57)
[2019-02-19] MEDS ORDERED: PROPOFOL IV EMULSION 10 MG/ML 20 ML VIAL IV ONE (09:57)
[2019-02-19] MEDS ORDERED: LIDOCAINE HCL 2% 2 ML VIAL/AMP(20MG/ML) INFIL ONE (09:57)
--- NOTE | 2019-02-19 10:22 | Pharmacy Report ---
Pharmacy Glycemic Short Note 2 - Date of Service February 19, 2019 - Glycemic Short BSG Results (Last 24 hours): 02/18/19 02/18/19 02/18/19 10:09 11:09 12:21 Glucose POC Glucose 135 H 122 H 125 H 02/18/19 02/18/19 02/18/19 13:41 13:42 14:48 Glucose 130 H POC Glucose 121 H 121 H 02/18/19 02/18/19 02/18/19 15:59 17:24 20:50 Glucose POC Glucose 111 H 111 H 112 H 02/19/19 02/19/19 02/19/19 00:04 01:06 04:30 Glucose 110 H 111 H POC Glucose 109 H 02/19/19 06:21 Glucose POC Glucose 108 H OUTPATIENT ANTIDIABETIC REGIMEN: * Glipizide 20mg daily * Metformin 500mg BID * Empagliflozin 10mg daily * A1c 7.6% 02/18/19 ASSESSMENT: 02/19/19 * Type 2 diabetic admitted to ICU w/ gastric volvulus * Patient was successfully transitioned off the insulin drip yesterday * Fasting BSG 108 this AM w/ 15 units of Lantus on board. Will continue a similar dose today, with next dose scheduled for this afternoon after surgery * Patient is NPO this AM for OR * Current Novolog CF and CR are level 2 (moderate) stress level and are appropriate starting points. Changing BSG checks to Q 4 hrs will offer the opportunity to provide additional correction if glycemic control deteriorates following OR today. * Will monitor for use of steroids by anesthesia as prevention of PONV as this will change our plan. PLAN FOR INPATIENT GLYCEMIC CONTROL: * Hold outpatient oral diabetes medications * Basal insulin * Lantus SQ Q 24 hrs, per the following scale * 0 units if less than 140 * 8 units if 140-220 * 15 units if greater than 220 * Bolus insulin * NovoLog per scale Q4hrs * Goal Range: Low 120 mg/dL - High 150 mg/dL * Correction Factor: 25 mg/dL/unit * Nutritional / Prandial insulin per carb ratio of 1 unit per 10 grams CHO consumed PLAN FOR DISCHARGE: * to be determined
[2019-02-19] MEDS ORDERED: PHENYLEPHRINE HCL 10 MG/ML VIAL ONE (10:42)
[2019-02-19] MEDS ORDERED: NEOSTIGMINE METHYLSULFATE 5 MG/5 ML SYR ONE (10:42)
[2019-02-19] MEDS ORDERED: GLYCOPYRROLATE 0.2 MG/ML VIAL ONE (10:42)
--- NOTE | 2019-02-19 11:19 | Operative Report ---
Post Operative Report Pre & Post Diagnosis Operation Date: 02/17/19 07:00 <No data on this case meets the specified criteria> Operation Date: 02/19/19 08:10 Pre-Op Diagnosis: Acute Gastric Volvulus Post-Op Diagnosis: Acute Gastric Volvulus/hiatal hernia Procedure Operation Date: 02/17/19 07:00 <No data on this case meets the specified criteria> Operation Date: 02/19/19 08:10 Actual Procedures p Laparoscopic Hiatal Hernia Repair, Gastropexy(Not Applicable) - Mao Barber DO Surgeon Mao Barber DO Caramel Cutter Machine tuyet Peralta Estimated Blood Loss 5 Findings Consistent with Post-Op Diagnosis Specimens none Description of Procedure After informed consent was obtained the patient was taken the operating room and placed in supine position. After successful intubation the patient's abdomen was sterilely prepped and draped in usual fashion. A supraumbilical incision was made with an 11 blade scalpel and carried down through the soft tissue using cautery. The anterior rectus fascia was opened using cautery and two #0 Vicryl stay sutures were placed. Peritoneum was entered using blunt finger penetration and a finger sweep was performed. A 12 mm [place] Torre trocar was placed and the abdomen was insufflated to 20 mmHg. A laparoscope was inserted and the abdomen examined in 360 degrees. A subxiphoid 12 mm port and a right upper quadrant 5 mm port, a right flank 5 mm port and a left flank 5 mm port were all placed under direct vision. The patient was placed in a steep reverse Trendelenburg position. A liver retractor was used to elevate the left lobe of the liver and secured to the table using the neal. This was maintained throughout the case to help with exposure. This exposed a moderate probably 4 to 5 cm hiatal hernia with gastric incarceration. There was no evidence of gastric ischemia or infarction. The stomach is already decompressed with an NG tube. I began by taking down the gastrohepatic ligament using the harmonic scalpel. We carried this up along the right rut the diaphragm anteriorly and down over to the left through the diaphragm taking the sac off as we went. After doing this I was then able to reduce the majority of the stomach and untwist it. It was in fact volvulized. We continued to come up the left rut of the diaphragm superiorly. Once I got to this point we remove the NG tube and had anesthesia pass a 50 Maltese bougie which went easily. I then continue to use blunt dissection traction countertraction and small amounts of harmonic scalpel to continue to take down attachments from the stomach to the chest. Eventually we had all of the hernia sac completely down and the stomach completely reduced and laid in a normal fashion. I was able come underneath the stomach and reapproximate the left rut to the right crew posteriorly using 0 Surgidac in simple interrupted fashion. Once we had this closed we then closed the defect anteriorly again in simple interrupted fashion using 0 Surgidac. I then used 0 silk to create a gastropexy by pexing the lesser curvature of the stomach to the right rut the diaphragm and the fundus to the left rut diaphragm. At the completion of the procedure there was adequate hemostasis. The stomach laid nice and flat within the abdominal cavity without any tension on it. A quick look around the abdomen showed no other abnormalities. The bougie was removed and the NG tube reinserted. We removed the liver retractor and all the trochars and desufflated the abdomen. The fascia of the camera port was closed using 0 Vicryl in [id number] fashion. All wounds were irrigated and closed using 4-0 Monocryl. Marcaine was injected around it for postoperative analgesia and skin glue used as a dressing. The patient was awakened, extubated and transferred back to the intensive care unit in guarded condition. My physician embalmer assistant was present for the entire case. She helped prep the patient. She helped run the camera as well as retraction with retraction throughout my dissection. She also helped with wound closure and dressing placement. I attest to the content of the Intraoperative Record and any orders documented therein. Any exceptions are noted below.
[2019-02-19] MEDS ORDERED: MoRPHine SULFATE 2 MG/ML CARP IV PRN (11:55)
[2019-02-19] MEDS ORDERED: LACTATED RINGER'S 1,000 ML IV SCH (11:55)
[2019-02-19] MEDS ORDERED: MoRPHine SULFATE 10 MG/ML CARP/VIAL IV PRN (11:55)
[2019-02-19] MEDS: NORMOSOL-R 1,000 ML IV SCH ×2 (12:01→20:53)
--- NOTE | 2019-02-19 12:12 | Anesthesiology Progress Note ---
Date of Service February 19, 2019 Anesthesia Post Procedure Vital Signs Vital Signs: Temp Pulse Resp BP Pulse Ox 02/19/19 12:03 85 182/62 H 02/19/19 12:01 88 16 182/65 H 95 02/19/19 12:00 98.6 F 83 18 182/65 H 93 02/19/19 11:56 86 21 191/76 H 93 02/19/19 11:51 89 18 192/87 H 96 02/19/19 11:50 89 20 192/87 H 95 02/19/19 11:46 89 20 185/64 H 98 02/19/19 11:43 91 H 17 96 02/19/19 11:41 91 H 17 175/65 H 95 02/19/19 11:39 90 15 176/66 H 95 02/19/19 11:32 96 H 16 173/71 H 96 02/19/19 11:31 98.1 F 16 98 02/19/19 07:01 99.0 F 79 16 154/71 H 92 02/19/19 06:16 93 H 167/71 H 02/19/19 06:00 90 16 167/71 H 93 02/19/19 05:01 92 H 19 164/65 H 92 02/19/19 04:01 90 15 171/76 H 92 02/19/19 04:00 99.3 F 02/19/19 03:01 87 15 162/65 H 93 02/19/19 02:01 82 14 143/67 H 92 02/19/19 01:01 91 H 16 164/73 H 93 02/19/19 00:06 97 H 177/75 H 02/19/19 00:01 93 H 17 177/75 H 91 02/18/19 23:01 93 H 14 174/68 H 93 02/18/19 22:01 94 H 19 181/82 H 92 02/18/19 21:01 111 H 16 177/78 H 93 02/18/19 20:01 97 H 17 178/74 H 93 02/18/19 19:35 99.0 F 02/18/19 19:00 94 H 14 159/79 H 93 02/18/19 18:01 84 15 140/65 92 02/18/19 17:26 111 H 176/75 H 02/18/19 17:01 101 H 21 177/75 H 94 02/18/19 16:01 98.6 F 100 H 17 171/74 H 93 02/18/19 16:00 97 H 18 93 02/18/19 15:33 92 H 16 149/63 H 91 02/18/19 15:01 100 H 21 183/80 H 94 02/18/19 14:01 94 H 15 168/78 H 93 02/18/19 13:01 90 13 169/73 H 91 Transfer of Care Handoff Completed per policy Notes Mental Status: alert / awake / arousable and participated in evaluation Patient Amnestic to Procedure: Yes Nausea / Vomiting: adequately controlled Pain: adequately controlled Airway Patency, RR, SpO2: stable & adequate BP & HR: stable & adequate Hydration State: stable & adequate Anesthetic Complications: no major complications apparent and Pt Satisfied with anesthetic care
[2019-02-19] MEDS: MoRPHine SULFATE 2 MG/ML CARP IV PRN ×2 (14:08→20:51)
[2019-02-19] MEDS: ONDANSETRON INJ 2 MG/ML 2 ML VIAL IV PRN ×2 (14:08→20:51)
--- NOTE | 2019-02-19 14:21 | Critical Care Progress Note ---
Date of Service February 19, 2019 Assessment & Plan (1) Admitted to intensive care unit: Reason Critically Ill: 73-year-old female with acute gastric volvulus found to have concerning EKG changes in the perioperative setting. DKA complicating clinical course. Neuro: [facility] ICU: NEGATIVE Analgesia: Morphine sulfate 1-3 mg IV every 3 hours PRN scaled pain control. Kidney function has returned to normal, if any signs of postop REKHA recommend conversion to fentanyl 50 mcg IV every 2 hours as needed. Cardiac: Acute EKG changes with concern for STEMI: Troponin initially elevated to 0.212, continue to downtrend to 0.064 this morning. Clinically asymptomatic from cardiac perspective today. - Echo showed no regional wall motion abnormalities. Hyperdynamic left ventricular function w/ EF of >70%. Hyperdynamic Right ventricle noted. No valvular disease. - Known LAD lesion per cardiology. - Metoprolol tartrate 7.5 mg IV every 6 hours. 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 Barber this morning, successful laparoscopic repair uncomplicated N.p.o. Continue Protonix 40 mg twice daily Renal: REKHA in setting of DKA and gastric volvulus, peak 2.02 from baseline of ~ 1, resolved Hypokalemia, 3.5 today 20 M EQ K acetate twice daily Hypophosphatemia, 1.9 today 21mmol sodium phos replacement per protocol - Marie in place, draining clear yellow urine ENDO - Type II diabetic, DKA on admit with elevated beta hydroxybutyrate acid and glucose greater than 600 Resolved, no elevated anion gap today Continue serum glucose checks per protocol 0 to 15 units per protocol, plus SSI Heme: Leukocytosis to 13 today, afebrile, hemoglobin 12.9 stable No significant blood loss during surgery today CBC daily ID- Pip/tazo IV antibiotics in the setting of volvulus Continue to follow postop and follow for signs of infection Lines: Peripheral IV x2 intact, right triple-lumen IJ intact, left radial art line removed today, Marie intact DVT prophylaxis May resume heparin 5000 3 times daily - SCDs Thank you for allowing us to be part of this patient's care. Please refer to Dr. Cox's documentation for any further recommendations. Kerrie Amaya was seen at bedside this morning prior to going to the OR for laparoscopic repair of gastric organoaxial volvulus. She feels much more comfortable today from when she came into the hospital. Endorses a little bit of achiness but "I am not really sure "when asked if she has abdominal pain today. She is alert, oriented and answers questions appropriately. She is not having any shortness of breath or chest pain today. She reports she is very thirsty. Denies fevers or chills overnight. She had minimal output in her NG to low intermittent suction last night. No questions or concerns at time of visit. Addendum: Return from our this afternoon. Procedure went well without complications, she is been extubated resting comfortably. No signs of bleeding or distress. Review of Systems Review of Systems: Constitutional: Denies fever, chills, sweats. Cardiovascular: Denies Chest pain, chest pressure, palpitations, Respiratory: Denies shortness of breath, cough, sputum production, difficulty breathing Gastrointestinal: Denies nausea, vomiting, constipation, diarrhea. Endorses minimal abdominal pain as noted in HPI. Endorses thirst. Genitourinary: Denies pain with urination, urinary urgency, urinary frequency Musculoskeletal: Denies muscle aches/pain, joint aches/pain Integumentary:Denies discomfort at line sites. Neurological: Denies headache, numbness, tingling. Physical Exam Physical Exam: General: A&Ox3, cooperative. NG in place low intermittent suction. Answers questions appropriately. Right IJ in place. HEENT: Atraumatic, normocephalic. Pulm: CTAB A&P. -wheezes, -rales, -rhonchi. Symmetrical chest rise. No respiratory distress. Cardiac: RRR. -mrg. Radial pulses intact and symmetrical. No JVD appreciated. No lower leg edema. PT pulses intact and symmetrical. Abdominal: Mildly tender to light palpation at the epigastrum. Soft. Distended. Results & Data Vital Signs (Past 12 Hours) Vital Signs Temp Pulse Resp BP Pulse Ox 02/19/19 06:16 93 H 167/71 H 02/19/19 06:00 90 16 167/71 H 93 02/19/19 05:01 92 H 19 164/65 H 92 02/19/19 04:01 90 15 171/76 H 92 02/19/19 04:00 37.4 C 02/19/19 03:01 87 15 162/65 H 93 02/19/19 02:01 82 14 143/67 H 92 02/19/19 01:01 91 H 16 164/73 H 93 02/19/19 00:06 97 H 177/75 H 02/19/19 00:01 93 H 17 177/75 H 91 02/18/19 23:01 93 H 14 174/68 H 93 02/18/19 22:01 94 H 19 181/82 H 92 02/18/19 21:01 111 H 16 177/78 H 93 02/18/19 20:01 97 H 17 178/74 H 93 02/18/19 19:35 37.2 C 02/18/19 19:00 94 H 14 159/79 H 93 Laboratory Results 02/19/19 02/19/19 02/19/19 Range/Units 11:58 06:21 04:30 WBC (4.8-10.8) K/uL RBC (4.2-5.4) M/uL Hgb (12.0-16.0) g/dL Hct (37-47) % MCV (80-100) fL MCH (25-34) pg MCHC (32-36) g/dL RDW Std Deviation (36.4-46.3) fL RDW Coeff of Blaire (11.5-14.5) % Plt Count (130-400) K/uL MPV (7.4-10.4) fL Immature Gran % (Auto) % Neut % (Auto) % Lymph % (Auto) % Vilas % (Auto) % Eos % (Auto) % Baso % (Auto) % Immature Gran # (Auto) (0.00-0.02) K/uL Neut # (Auto) (1.4-6.5) K/uL Lymph # (Auto) (1.2-3.4) K/uL Vilas # (Auto) (0.11-0.59) K/uL Eos # (Auto) (0-0.5) K/uL Baso # (Auto) (0-0.2) K/uL VBG pH (7.36-7.41) Sodium 149 H (136-145) mmol/L Potassium 3.5 (3.5-5.1) mmol/L Chloride 116 H (98-107) mmol/L Carbon Dioxide 26 (21-32) mmol/L Anion Gap 7.0 (3-11) BUN 20 H (7-18) mg/dl Creatinine 0.54 L (0.6-1.2) mg/dl Est Cr Clr Drug Dosing 91.8 ml/min Est GFR ( Amer) 107.7 Est GFR (Non-Af Amer) 93.0 BUN/Creatinine Ratio 37.1 H (10-20) Glucose 111 H (70-99) mg/dl POC Glucose 120 H 108 H (70-99) Calcium 7.1 L (8.5-10.1) mg/dl Phosphorus 1.9 L (2.5-4.9) mg/dl Magnesium 2.9 H (1.8-2.4) mg/dl Total Bilirubin 0.5 (0.2-1) mg/dl Direct Bilirubin < 0.1 (0-0.2) mg/dl AST 21 (15-37) U/L ALT 22 (12-78) U/L Alkaline Phosphatase 78 (45-117) U/L Troponin I 0.064 H* (0-0.045) ng/ml Total Protein 6.1 L (6.4-8.2) gm/dl Albumin 2.4 L (3.4-5.0) gm/dl Nasal Screen MRSA (PCR) (Negative) 02/19/19 02/19/19 02/19/19 Range/Units 04:30 01:06 01:06 WBC 13.14 H 12.62 H (4.8-10.8) K/uL RBC 4.34 4.37 (4.2-5.4) M/uL Hgb 12.9 12.5 (12.0-16.0) g/dL Hct 38.2 39.0 (37-47) % MCV 88.0 89.2 (80-100) fL MCH 29.7 28.6 (25-34) pg MCHC 33.8 32.1 (32-36) g/dL RDW Std Deviation 50.7 H 51.3 H (36.4-46.3) fL RDW Coeff of Blaire 15.6 H 15.7 H (11.5-14.5) % Plt Count 233 218 (130-400) K/uL MPV 8.4 8.5 (7.4-10.4) fL Immature Gran % (Auto) 0.5 0.4 % Neut % (Auto) 79.0 79.3 % Lymph % (Auto) 11.7 10.1 % Vilas % (Auto) 8.4 9.9 % Eos % (Auto) 0.2 0.1 % Baso % (Auto) 0.2 0.2 % Immature Gran # (Auto) 0.06 H 0.05 H (0.00-0.02) K/uL Neut # (Auto) 10.40 H 10.01 H (1.4-6.5) K/uL Lymph # (Auto) 1.54 1.28 (1.2-3.4) K/uL Vilas # (Auto) 1.10 H 1.25 H (0.11-0.59) K/uL Eos # (Auto) 0.02 0.01 (0-0.5) K/uL Baso # (Auto) 0.02 0.02 (0-0.2) K/uL VBG pH 7.39 (7.36-7.41) Sodium (136-145) mmol/L Potassium (3.5-5.1) mmol/L Chloride (98-107) mmol/L Carbon Dioxide (21-32) mmol/L Anion Gap (3-11) BUN (7-18) mg/dl Creatinine (0.6-1.2) mg/dl Est Cr Clr Drug Dosing ml/min Est GFR ( Amer) Est GFR (Non-Af Amer) BUN/Creatinine Ratio (10-20) Glucose (70-99) mg/dl POC Glucose (70-99) Calcium (8.5-10.1) mg/dl Phosphorus (2.5-4.9) mg/dl Magnesium (1.8-2.4) mg/dl Total Bilirubin (0.2-1) mg/dl Direct Bilirubin (0-0.2) mg/dl AST (15-37) U/L ALT (12-78) U/L Alkaline Phosphatase (45-117) U/L Troponin I (0-0.045) ng/ml Total Protein (6.4-8.2) gm/dl Albumin (3.4-5.0) gm/dl Nasal Screen MRSA (PCR) (Negative) 02/19/19 02/19/19 02/18/19 Range/Units 01:06 00:04 20:50 WBC (4.8-10.8) K/uL RBC (4.2-5.4) M/uL Hgb (12.0-16.0) g/dL Hct (37-47) % MCV (80-100) fL MCH (25-34) pg MCHC (32-36) g/dL RDW Std Deviation (36.4-46.3) fL RDW Coeff of Blaire (11.5-14.5) % Plt Count (130-400) K/uL MPV (7.4-10.4) fL Immature Gran % (Auto) % Neut % (Auto) % Lymph % (Auto) % Vilas % (Auto) % Eos % (Auto) % Baso % (Auto) % Immature Gran # (Auto) (0.00-0.02) K/uL Neut # (Auto) (1.4-6.5) K/uL Lymph # (Auto) (1.2-3.4) K/uL Vilas # (Auto) (0.11-0.59) K/uL Eos # (Auto) (0-0.5) K/uL Baso # (Auto) (0-0.2) K/uL VBG pH (7.36-7.41) Sodium 150 H (136-145) mmol/L Potassium 3.7 (3.5-5.1) mmol/L Chloride 118 H (98-107) mmol/L Carbon Dioxide 25 (21-32) mmol/L Anion Gap 7.0 (3-11) BUN 22 H (7-18) mg/dl Creatinine 0.54 L D (0.6-1.2) mg/dl Est Cr Clr Drug Dosing 91.8 ml/min Est GFR ( Amer) 107.7 Est GFR (Non-Af Amer) 93.0 BUN/Creatinine Ratio 40.1 H (10-20) Glucose 110 H (70-99) mg/dl POC Glucose 109 H 112 H (70-99) Calcium 7.0 L (8.5-10.1) mg/dl Phosphorus 2.6 D (2.5-4.9) mg/dl Magnesium 2.9 H (1.8-2.4) mg/dl Total Bilirubin (0.2-1) mg/dl Direct Bilirubin (0-0.2) mg/dl AST (15-37) U/L ALT (12-78) U/L Alkaline Phosphatase (45-117) U/L Troponin I (0-0.045) ng/ml Total Protein (6.4-8.2) gm/dl Albumin (3.4-5.0) gm/dl Nasal Screen MRSA (PCR) (Negative) 02/18/19 02/18/19 02/18/19 Range/Units 18:00 17:24 15:59 WBC (4.8-10.8) K/uL RBC (4.2-5.4) M/uL Hgb (12.0-16.0) g/dL Hct (37-47) % MCV (80-100) fL MCH (25-34) pg MCHC (32-36) g/dL RDW Std Deviation (36.4-46.3) fL RDW Coeff of Blaire (11.5-14.5) % Plt Count (130-400) K/uL MPV (7.4-10.4) fL Immature Gran % (Auto) % Neut % (Auto) % Lymph % (Auto) % Vilas % (Auto) % Eos % (Auto) % Baso % (Auto) % Immature Gran # (Auto) (0.00-0.02) K/uL Neut # (Auto) (1.4-6.5) K/uL Lymph # (Auto) (1.2-3.4) K/uL Vilas # (Auto) (0.11-0.59) K/uL Eos # (Auto) (0-0.5) K/uL Baso # (Auto) (0-0.2) K/uL VBG pH (7.36-7.41) Sodium (136-145) mmol/L Potassium (3.5-5.1) mmol/L Chloride (98-107) mmol/L Carbon Dioxide (21-32) mmol/L Anion Gap (3-11) BUN (7-18) mg/dl Creatinine (0.6-1.2) mg/dl Est Cr Clr Drug Dosing ml/min Est GFR ( Amer) Est GFR (Non-Af Amer) BUN/Creatinine Ratio (10-20) Glucose (70-99) mg/dl POC Glucose 111 H 111 H (70-99) Calcium (8.5-10.1) mg/dl Phosphorus (2.5-4.9) mg/dl Magnesium (1.8-2.4) mg/dl Total Bilirubin (0.2-1) mg/dl Direct Bilirubin (0-0.2) mg/dl AST (15-37) U/L ALT (12-78) U/L Alkaline Phosphatase (45-117) U/L Troponin I (0-0.045) ng/ml Total Protein (6.4-8.2) gm/dl Albumin (3.4-5.0) gm/dl Nasal Screen MRSA (PCR) Negative (Negative) 02/18/19 02/18/19 02/18/19 Range/Units 14:48 13:42 13:41 WBC (4.8-10.8) K/uL RBC (4.2-5.4) M/uL Hgb (12.0-16.0) g/dL Hct (37-47) % MCV (80-100) fL MCH (25-34) pg MCHC (32-36) g/dL RDW Std Deviation (36.4-46.3) fL RDW Coeff of Blaire (11.5-14.5) % Plt Count (130-400) K/uL MPV (7.4-10.4) fL Immature Gran % (Auto) % Neut % (Auto) % Lymph % (Auto) % Vilas % (Auto) % Eos % (Auto) % Baso % (Auto) % Immature Gran # (Auto) (0.00-0.02) K/uL Neut # (Auto) (1.4-6.5) K/uL Lymph # (Auto) (1.2-3.4) K/uL Vilas # (Auto) (0.11-0.59) K/uL Eos # (Auto) (0-0.5) K/uL Baso # (Auto) (0-0.2) K/uL VBG pH (7.36-7.41) Sodium 149 H (136-145) mmol/L Potassium 3.5 (3.5-5.1) mmol/L Chloride 117 H (98-107) mmol/L Carbon Dioxide 28 (21-32) mmol/L Anion Gap 4.0 (3-11) BUN 29 H (7-18) mg/dl Creatinine 0.85 (0.6-1.2) mg/dl Est Cr Clr Drug Dosing 58.3 ml/min Est GFR ( Amer) 78.2 Est GFR (Non-Af Amer) 67.5 BUN/Creatinine Ratio 33.7 H (10-20) Glucose 130 H (70-99) mg/dl POC Glucose 121 H 121 H (70-99) Calcium 7.8 L (8.5-10.1) mg/dl Phosphorus 1.5 L* (2.5-4.9) mg/dl Magnesium 3.1 H (1.8-2.4) mg/dl Total Bilirubin (0.2-1) mg/dl Direct Bilirubin (0-0.2) mg/dl AST (15-37) U/L ALT (12-78) U/L Alkaline Phosphatase (45-117) U/L Troponin I (0-0.045) ng/ml Total Protein (6.4-8.2) gm/dl Albumin (3.4-5.0) gm/dl Nasal Screen MRSA (PCR) (Negative) Medications Administered Current Inpatient Medications Heparin Sodium (Porcine) (Heparin Sodium (Porcine)) 5,000 units SQ Q8 [facility] Stop: 03/20/19 13:59 Last Admin: 02/19/19 14:04 Dose: 5,000 units Documented by: Sodium Chloride (Nss) 250 mls @ 15 mls/hr IV .[id number] PRN PRN Reason: For Transfusion Stop: 03/19/19 17:27 Parenteral Electrolytes (Normosol-R) 1,000 mls @ 100 mls/hr IV .Q10H [facility] Stop: 03/19/19 19:44 Last Admin: 02/19/19 12:01 Dose: 100 mls/hr Documented by: Levothyroxine Sodium 37.5 mcg/ (Syringe) 1.875 mls @ 2 mls/min IV DAILY@0900 [facility] Stop: 03/20/19 08:59 Last Admin: 02/19/19 08:07 Dose: 2 mls/min Documented by: Piperacillin Sod/Tazobactam (Sod 4.5 gm/ Dextrose) 120 mls @ 30 mls/hr IV Q8H [facility]; Protocol Stop: 02/26/19 19:59 Last Admin: 02/19/19 12:01 Dose: 30 mls/hr Documented by: Pantoprazole Sodium 40 mg/ (Syringe) 10 mls @ 5 mls/min IV BID@0900,2100 [facility] Stop: 03/20/19 20:59 Last Admin: 02/19/19 07:41 Dose: 5 mls/min Documented by: Lactated Ringer's (Lr) 1,000 mls @ 125 mls/hr IV .Q8H [facility] Stop: 03/21/19 11:54 Last Admin: 02/19/19 12:30 Dose: Not Given Documented by: Insulin Aspart (Novolog Flexpen) 0 units SC Q4 [facility] Stop: 03/21/19 15:59 Insulin Glargine (Lantus Solostar Pen) 0 units SC TODAY@1800 [facility]; Protocol Stop: 03/21/19 17:59 Metoprolol Tartrate (Lopressor) 7.5 mg IV Q6 [facility] Stop: 03/21/19 00:00 Last Admin: 02/19/19 12:03 Dose: 7.5 mg Documented by: Miscellaneous Information (Consult) 1 ea N/A UD PRN PRN Reason: Consult Stop: 03/19/19 18:45 Miscellaneous Information (Consult Glycemic Management Pharmacy) 1 ea N/A UD PRN PRN Reason: Consult Stop: 03/20/19 14:37 Morphine Sulfate (Morphine Sulfate) 1 mg IV Q3H PRN PRN Reason: MILD Pain (Scale 1,2,3) Stop: 03/05/19 11:54 Morphine Sulfate (Morphine Sulfate) 2 mg IV Q3H PRN PRN Reason: MODERATE Pain (Scale 4,5,6) Stop: 03/05/19 11:54 Last Admin: 02/19/19 14:08 Dose: 2 mg Documented by: Morphine Sulfate (Morphine Sulfate) 3 mg IV Q3H PRN PRN Reason: SEVERE Pain (Scale 7,8,9,10) Stop: 03/05/19 11:54 Ondansetron HCl (Zofran) 4 mg IV Q4H PRN PRN Reason: Nausea And Vomiting Stop: 03/21/19 11:54 Last Admin: 02/19/19 14:08 Dose: 4 mg Documented by: Resident Activity Tracking Resident Involvement: Resident Care Provided Care Provided: Adult Hospital Medicine
[2019-02-19] MEDS ORDERED: SODIUM PHOSPHATE 3 MMOL/1 ML 5 ML VIAL IV ONE (14:50)
[2019-02-19] MEDS ORDERED: SODIUM PHOSPHATE 21 MMOL in SODIUM CHLORIDE 0.9% 500 ML IV ONE (15:45)
--- NOTE | 2019-02-19 15:56 | Hospitalist Progress Note ---
Date of Service February 19, 2019 Assessment & Plan (1) Volvulus of stomach: This is a 73 yr old F who has a significant PMH of T2DM with neuropathy and retinopathy, nonobstructive CAD, HTN, HLD, hypothyroidism, Gerd, hiatal hernia, PVD, senile osteoporosis, hx of R breast ca s/p mastectomy who presents to [facility] secondary to intractable n/v x 2 day. In ED, CT scan abd/pelvis- acute gastric volvulus in setting of large hiatal hernia concerning for gastric outlet obstruction along with inflammatory stranding about the distal pancreatic body and tail concerning for acute pancreatitis. -GI and Thoracic surgery consulted -Per Dr. Segovia - Pt to require surgical intervention; however upon anesthesia evaluation pt with ECG changes, elevated trop, DKA -Cardiology cleared as EKG changes, elevated trop unlikely ACS, mostly demand ischemia- On IV Metoprolol q 6 hours started pre operatively -DKA- resolved, anion gap resolved. -High risk for surgery but given nature of disease, needs to go for surgery POST OPERATIVE STATUS S/P Laparoscopic Gastric volvulus and Hernia repair, Gastropexy today -Post operatively: Doing well, Extubated successfully -Pain controlled (2) Hematemesis: (3) SIRS (systemic inflammatory response syndrome): Pt with leukocytosis and tachycardia on admission, per CMS guidelines meets SIRS criteria -S/P 2 L IVF -On IV Zosyn empirically- Day 3 -Work up- Blood cx, Urine cx- Gp B strep-No sensitivities to follow (4) DKA (diabetic ketoacidoses): Blood glucose on arrival 585 with Anion Gap of 16, now resolved Hold oral hypoglycemics Patient received IV insulin while in ED -IVF -S/P IV Insulin drip ---> On Lantus -Electrolyte replacement (5) Acute kidney injury: Baseline creatinine 0.6, Now resolving Pre renal secondary to above Creatinine 2.2 on presentation -On IVF -Monitor (6) Hypophosphatemia: (7) Diabetes: Last A1c 7.3 on 02/10/2019 Treatment as above (8) CAD (coronary artery disease): No chest pain or shortness of breath ECG -ST segment depression noted in the lateral precordial leads. Recent tracing- EKG changes has mildly improved -Elevated troponin - 0.212, 0.204 -On metoprolol, lisinopril, Crestor, ASA as outpatient (9) HTN (hypertension): -Blood pressure currently stable, monitor closely -On metoprolol, lisinopril, amlodipine as outpatient (10) HLD (hyperlipidemia): -Hold statin (11) DVT prophylaxis: SCDS Disposition: Continue with ICU monitoring Updated son by bedside Follow up: PCP Dr. Truong upon discharge Subjective Patient is status post surgery today. No events. Patient was extubated successfully. Comfortable, Denies any pain currently No fever, chills. Physical Exam Physical Exam: Constitutional + ill appearing, AAOX3, not in distress NG tube + suctioning + Respiratory normal respiratory effort, lungs clear to auscultation Cardiovascular Rate/Rhythm: + tachycardic Heart Sounds: no murmur Vessels: no JVD Extremities: no edema Gastrointestinal (Abdomen) S/P Hiatal hernia/Gastric volvulus repair Neurologic Conversant, follows commands. Results & Data Vital Signs (Past 12 Hours) Vital Signs Temp Pulse Resp BP Pulse Ox 02/19/19 14:23 71 17 187/66 H 94 02/19/19 14:01 79 19 200/76 H 95 02/19/19 14:00 79 22 95 02/19/19 13:01 74 12 192/74 H 95 02/19/19 12:06 84 15 153/79 H 92 02/19/19 12:03 85 182/62 H 02/19/19 12:01 88 16 182/65 H 95 02/19/19 12:00 37.0 C 83 18 182/65 H 93 02/19/19 11:56 86 21 191/76 H 93 02/19/19 11:51 89 18 192/87 H 96 02/19/19 11:50 89 20 192/87 H 95 02/19/19 11:46 89 20 185/64 H 98 02/19/19 11:43 91 H 17 96 02/19/19 11:41 91 H 17 175/65 H 95 02/19/19 11:39 90 15 176/66 H 95 02/19/19 11:32 96 H 16 173/71 H 96 02/19/19 11:31 36.7 C 16 98 02/19/19 07:01 37.2 C 79 16 154/71 H 92 02/19/19 06:16 93 H 167/71 H 02/19/19 06:00 90 16 167/71 H 93 02/19/19 05:01 92 H 19 164/65 H 92 02/19/19 04:01 90 15 171/76 H 92 02/19/19 04:00 37.4 C (1) DKA (diabetic ketoacidoses) Diabetes mellitus complication detail: without coma Diabetes mellitus type: other specified (including PAULA) Qualified Code(s): E13.10 - Other specified diabetes mellitus with ketoacidosis without coma (2) Hematemesis Nausea presence: unspecified Qualified Code(s): K92.0 - Hematemesis
[2019-02-19] MEDS ORDERED: INSULIN GLARGINE SOLOSTAR 100 UNITS/ML 3 ML PEN SC SCH (18:00)
[2019-02-19] MEDS ORDERED: NORMOSOL-R 1,000 ML IV ONE (23:29)
[2019-02-20] MEDS: METOPROLOL TARTRATE 1 MG/ML VIAL IV SCH ×4 (00:11→16:40)
[2019-02-20] MEDS: INSULIN ASPART 100 UNITS/ML 3 ML PEN SC SCH ×6 (00:12→21:10)
[2019-02-20] MEDS: PIPERACILLIN/TAZOBACTAM 4.5 GM in DEXTROSE 5% 100 ML IV SCH ×2 (01:15→09:06)
[2019-02-20] MEDS: NORMOSOL-R 1,000 ML IV SCH ×2 (04:31→05:41)
[2019-02-20] MEDS: HEPARIN SOD 5,000 UNIT/0.5 ML VIAL SQ SCH ×3 (05:42→21:12)
[2019-02-20 06:04] LABS: BUN Creatinine Ratio 39.1 (10-20); Calcium 5.6 mg/dl (8.5-10.1); Creatinine Clr Calc Pharmacy 194.3 ml/min; Est GFR (Non-African American) 118.2; Phosphorus 1.5 mg/dl (2.5-4.9); Potassium 2.5 mmol/L (3.5-5.1)
[2019-02-20 07:05] LABS: BUN Creatinine Ratio 27.5 (10-20); Creatinine Clr Calc Pharmacy 104.4 ml/min; Est GFR (Non-African American) 96.6; Magnesium 2.4 mg/dl (1.8-2.4); Phosphorus 1.8 mg/dl (2.5-4.9); Potassium 3.2 mmol/L (3.5-5.1)
--- NOTE | 2019-02-20 07:36 | Surgery Progress Note ---
Date of Service February 20, 2019 Assessment & Plan (1) Acute gastric volvulus: POD 1 doing very well can transfer to floor from my standpoint d/c NGT ( only 50 cc's out last shift per RN) d/c lidia luis clears OOB today Dr. Bettencourt covering for weekend. Subjective awake/alert. feeling pretty good. pain controlled. no nausea. "thirsty" Physical Exam Physical Exam: alert/oriented. nad abd: soft. expected tenderness. Results & Data Vital Signs (Past 12 Hours) Vital Signs Temp Pulse Pulse Resp BP BP Pulse Ox 02/20/19 06:00 73 14 149/54 H 94 02/20/19 05:41 88 151/60 H 02/20/19 05:00 85 19 151/60 H 93 02/20/19 04:00 36.6 C 77 17 134/56 L 92 02/20/19 03:00 76 16 148/56 H 97 02/20/19 02:00 77 18 141/53 H 97 02/20/19 01:00 72 17 139/56 L 97 02/20/19 00:11 85 138/53 L 02/20/19 00:00 37 C 78 13 138/53 L 97 02/19/19 23:00 77 14 151/55 H 98 02/19/19 22:00 78 12 144/58 H 98 02/19/19 21:00 78 86 22 161/69 H 95 02/19/19 20:00 37 C 78 14 182/77 H 94
--- NOTE | 2019-02-20 08:04 | Critical Care Progress Note ---
Date of Service February 20, 2019 Assessment & Plan (1) Admitted to intensive care unit: Reason Critically Ill: 73-year-old female with acute gastric volvulus found to have concerning EKG changes in the perioperative setting. DKA complicating clinical course. Clinically well since surgery. Neuro: CAM ICU: NEGATIVE Analgesia: Morphine sulfate 1-3 mg IV every 3 hours PRN scaled pain control. Kidney function has returned to normal, if any signs of postop REKHA recommend conversion to fentanyl 50 mcg IV every 2 hours as needed. Cardiac: Acute EKG changes with concern for STEMI: Troponin initially elevated to 0.212, continue to downtrending on 02/19. No cardiac symptoms today. - Echo showed no regional wall motion abnormalities. Hyperdynamic left ventricular function w/ EF of >70%. Hyperdynamic Right ventricle noted. No valvular disease. - Known LAD lesion per cardiology. - Metoprolol tartrate 7.5 mg IV every 6 hours. Previously on metoprolol tartrate 50 mg twice daily [facility] Respiratory: No acute pulmonary disease No chronic respiratory disease GI Acute organoaxial gastric volvulus in the setting of hiatal hernia, resolved s/p laparoscopic repair Lactate normalized, no signs of ischemia - Remove NG, start on liquid diet today per Dr. Barber. Appears well Continue Protonix 40 mg twice daily Renal: REKHA in setting of DKA and gastric volvulus, peak 2.02 from baseline of ~ 1, resolved Hypokalemia, 3.4 today - Repletion with KCl 20meq IV today Hypophosphatemia, 1.8 today 30mmol sodium phos replacement per protocol - - Murillo Removed today ENDO - Type II diabetic, DKA on admit with elevated beta hydroxybutyrate acid and glucose greater than 600 Initially resolved - On HNS+20KCl 100cc/hr, s/p [id number] x1 this morning Continue serum glucose checks per protocol Gap increased to 17, 16 today. insulin gtt restarted for DKA. Potassium 3.4 Heme: No significant blood loss during surgery today Afebrile CBC daily ID- No signs of infection, pip/tazo discontinued. Lines: Peripheral IV x2 intact, right triple-lumen IJ intact, Murillo removed - Remove murillo, remove R IJ - PICC placement pending DVT prophylaxis - 5000 3 times daily - SCDs Thank you for allowing us to be part of this patient's care. Please refer to Dr. Cox's documentation for any further recommendations. Supervising Physician Co-Signing Physician Notes Reason Critically Ill: 73-year-old female with acute gastric volvulus found to have concerning EKG changes in the perioperative setting. DKA complicating clinical course. NEURO - * [facility] ICU: NEGATIVE * Fentanyl discontinue CARDIAC/VASCULAR - * Abnormal EKG: * Elevated troponins: Improving * Emergent Echo shows no regional wall motion abnormalities. Hyperdynamic left ventricular function w/ EF of >70%. Hyperdynamic Right ventricle noted. No valvular disease. * Continue beta-yolanda * Monitor on telemetry. * 7.5 mg IV metoprolol every 6 hours RESPIRATORY - * No h/o Pulmonary disease: GI/NUTRITION - * Acute Gastric Volvulus: Surgically resolved * Passing flatus, progress diet to clear liquids discontinue NG tube * Prophylaxis: Protonix RENAL/LYTES - * REKHA: Improved * 1/2 saline with 20 of K * Decrease bicarb, I suspect this is secondary to ligation of the left gastric vessel and mild subsequent ischemia will check lactate and repeat BMP - * Murillo discontinued ENDO - * DKA:Improved * Insulin gtt transitioned off on subcu insulin HEME - * 5000 3 times daily for DVT prophylaxis ID - * Discontinue Zosyn today LINES/IV ACCESS - * PIVs x2 * RIGHT IJ discontinue today, will order picc secondary to poor venous access DVT PROPHYLAXIS - * Heparin 5000 3 times daily * SCDs Patient stable for downgrade out of ICU Dr. Hernandez was resident physician during care of patient. I separately evaluated patient for baltazar portions of the history and the exam. I was present during the critical portion of medical decision making, and I discussed the case with the resident. I generally agree with the findings and plan. Subjective Monique reports she feels well this morning. She is thirsty, questions or concerns at time of visit. She denies fever, chills, sweats, and has minimal abdominal pain with a little bit of tenderness at her surgical site. She had a bowel movement yesterday. She does not have much of an appetite, but is thirsty. Denies headache. Review of Systems Review of Systems: Constitutional: Denies fever, chills, malaise, Eyes: Denies vision change, blurry vision Cardiovascular: Denies Chest pain, chest pressure, palpitations, extremity swelling Respiratory: Denies shortness of breath, cough, sputum production, difficulty breathing Gastrointestinal: Denies abdominal pain, nausea, vomiting, constipation, diarrhea. Endorses mild abdominal tenderness at her surgical incisions. Genitourinary: Denies pain with urination Musculoskeletal: Denies weakness, muscle aches/pain. Integumentary:Denies new rash Neurological: Denies headache, numbness, tingling Physical Exam Physical Exam: General: A&Ox3. NAD. Cooperative. Comfortable appearing, clamped NG tube in place. HEENT: Atraumatic, normocephalic. Pulm: CTAB A&P. -wheezes, -rales, -rhonchi. Symmetrical chest rise. No increase work of breathing. No respiratory distress. Cardiac: RRR, -mrg. Radial pulses intact and symmetrical. No JVD present : Murillo not present. Abdominal: Nontender, nondistended, soft. BS present. Laparoscopic port incision sites appropriately tender, without erythema, discharge, or exudate. Results & Data Vital Signs (Past 12 Hours) Vital Signs Temp Pulse Pulse Resp BP BP Pulse Ox 02/20/19 06:00 73 14 149/54 H 94 02/20/19 05:41 88 151/60 H 02/20/19 05:00 85 19 151/60 H 93 02/20/19 04:00 36.6 C 77 17 134/56 L 92 02/20/19 03:00 76 16 148/56 H 97 02/20/19 02:00 77 18 141/53 H 97 02/20/19 01:00 72 17 139/56 L 97 02/20/19 00:11 85 138/53 L 02/20/19 00:00 37 C 78 13 138/53 L 97 02/19/19 23:00 77 14 151/55 H 98 02/19/19 22:00 78 12 144/58 H 98 02/19/19 21:00 78 86 22 161/69 H 95 02/19/19 20:00 37 C 78 14 182/77 H 94 02/19/19 19:25 74 15 186/67 H 93 02/19/19 19:00 78 17 192/65 H 95 Laboratory Results 02/20/19 02/20/19 02/20/19 Range/Units 13:02 13:02 11:28 VBG pH (7.36-7.41) Sodium Pending (136-145) mmol/L Potassium 3.4 L (3.5-5.1) mmol/L Chloride 110 H (98-107) mmol/L Carbon Dioxide 14 L (21-32) mmol/L Anion Gap 16.0 H (3-11) BUN 14 (7-18) mg/dl Creatinine 0.61 (0.6-1.2) mg/dl Est Cr Clr Drug Dosing 82.2 ml/min Est GFR ( Amer) 103.5 Est GFR (Non-Af Amer) 89.3 BUN/Creatinine Ratio 22.5 H (10-20) Glucose 402 H* (70-99) mg/dl POC Glucose 229 H (70-99) Lactate 1.2 (0.4-2.0) mmol/L Calcium 6.9 L (8.5-10.1) mg/dl Phosphorus (2.5-4.9) mg/dl Magnesium (1.8-2.4) mg/dl Beta-Hydroxybutyric Acd Pending Crossmatch 02/20/19 02/20/19 02/20/19 Range/Units 10:38 09:00 06:32 VBG pH (7.36-7.41) Sodium 153 H (136-145) mmol/L Potassium 3.2 L D (3.5-5.1) mmol/L Chloride 119 H (98-107) mmol/L Carbon Dioxide 17 L (21-32) mmol/L Anion Gap 17.0 H (3-11) BUN 13 (7-18) mg/dl Creatinine 0.48 L (0.6-1.2) mg/dl Est Cr Clr Drug Dosing 104.4 ml/min Est GFR ( Amer) 112.0 Est GFR (Non-Af Amer) 96.6 BUN/Creatinine Ratio 27.5 H (10-20) Glucose 143 H (70-99) mg/dl POC Glucose 164 H 131 H (70-99) Lactate (0.4-2.0) mmol/L Calcium 7.0 L D (8.5-10.1) mg/dl Phosphorus 1.8 L (2.5-4.9) mg/dl Magnesium 2.4 (1.8-2.4) mg/dl Beta-Hydroxybutyric Acd Crossmatch 02/20/19 02/20/19 02/20/19 Range/Units 05:09 05:09 04:02 VBG pH 7.35 L (7.36-7.41) Sodium 153 H (136-145) mmol/L Potassium 2.5 L* D (3.5-5.1) mmol/L Chloride 126 H (98-107) mmol/L Carbon Dioxide 16 L (21-32) mmol/L Anion Gap 11.0 (3-11) BUN 10 D (7-18) mg/dl Creatinine 0.26 L (0.6-1.2) mg/dl Est Cr Clr Drug Dosing 194.3 ml/min Est GFR ( Amer) 137.0 Est GFR (Non-Af Amer) 118.2 BUN/Creatinine Ratio 39.1 H (10-20) Glucose 119 H (70-99) mg/dl POC Glucose 118 H (70-99) Lactate (0.4-2.0) mmol/L Calcium 5.6 L* D (8.5-10.1) mg/dl Phosphorus 1.5 L* (2.5-4.9) mg/dl Magnesium 2.0 (1.8-2.4) mg/dl Beta-Hydroxybutyric Acd Crossmatch 02/20/19 02/19/19 02/19/19 Range/Units 00:08 20:21 16:29 VBG pH (7.36-7.41) Sodium (136-145) mmol/L Potassium (3.5-5.1) mmol/L Chloride (98-107) mmol/L Carbon Dioxide (21-32) mmol/L Anion Gap (3-11) BUN (7-18) mg/dl Creatinine (0.6-1.2) mg/dl Est Cr Clr Drug Dosing ml/min Est GFR ( Amer) Est GFR (Non-Af Amer) BUN/Creatinine Ratio (10-20) Glucose (70-99) mg/dl POC Glucose 123 H 129 H 130 H (70-99) Lactate (0.4-2.0) mmol/L Calcium (8.5-10.1) mg/dl Phosphorus (2.5-4.9) mg/dl Magnesium (1.8-2.4) mg/dl Beta-Hydroxybutyric Acd Crossmatch 02/17/19 Range/Units 17:55 VBG pH (7.36-7.41) Sodium (136-145) mmol/L Potassium (3.5-5.1) mmol/L Chloride (98-107) mmol/L Carbon Dioxide (21-32) mmol/L Anion Gap (3-11) BUN (7-18) mg/dl Creatinine (0.6-1.2) mg/dl Est Cr Clr Drug Dosing ml/min Est GFR ( Amer) Est GFR (Non-Af Amer) BUN/Creatinine Ratio (10-20) Glucose (70-99) mg/dl POC Glucose (70-99) Lactate (0.4-2.0) mmol/L Calcium (8.5-10.1) mg/dl Phosphorus (2.5-4.9) mg/dl Magnesium (1.8-2.4) mg/dl Beta-Hydroxybutyric Acd Crossmatch See Detail Medications Administered Current Inpatient Medications Heparin Sodium (Beef Lung) (Heparin Sod 10 Unit/Ml Flush) 5 ml FLUSH PRN PRN PRN Reason: Flush Stop: 03/21/19 23:02 Heparin Sodium (Porcine) (Heparin Sodium (Porcine)) 5,000 units SQ Q8 [facility] Stop: 03/20/19 13:59 Last Admin: 02/20/19 05:42 Dose: 5,000 units Documented by: Sodium Chloride (Nss) 250 mls @ 15 mls/hr IV .[id number] PRN PRN Reason: For Transfusion Stop: 03/19/19 17:27 Levothyroxine Sodium 37.5 mcg/ (Syringe) 1.875 mls @ 2 mls/min IV DAILY@0900 [facility] Stop: 03/20/19 08:59 Last Admin: 02/20/19 09:06 Dose: 2 mls/min Documented by: Potassium Phosphate 30 mmol/ (Sodium Chloride) 510 mls @ 102 mls/hr IV NOW ONE Stop: 02/20/19 14:14 Last Admin: 02/20/19 09:46 Dose: 102 mls/hr Documented by: Potassium Chloride/Sodium Chloride (1/2 Nss + 20meq Kcl 1000ml) 20 meq in 1,000 mls @ 100 mls/hr IV .Q10H [facility] Stop: 03/22/19 09:14 Last Admin: 02/20/19 09:46 Dose: 100 mls/hr Documented by: Insulin Human Regular 250 (units/ Sodium Chloride) 250 mls @ 0 mls/hr IV .Q0M [facility]; Protocol Stop: 03/22/19 13:59 Insulin Aspart (Novolog Flexpen) 0 units SC [facility] Stop: 03/22/19 17:59 Metoprolol Tartrate (Lopressor) 7.5 mg IV Q6 [facility] Stop: 03/21/19 00:00 Last Admin: 02/20/19 12:01 Dose: 7.5 mg Documented by: Miscellaneous (Insulin Protocol Dka Goal Range) 1 ea N/A ONE ONE Stop: 02/20/19 13:53 Miscellaneous (Insulin Protocol Severe Stress) 1 ea N/A ONE ONE Stop: 02/20/19 13:53 Miscellaneous Information (Consult Glycemic Management Pharmacy) 1 ea N/A UD PRN PRN Reason: Consult Stop: 03/20/19 14:37 Morphine Sulfate (Morphine Sulfate) 1 mg IV Q3H PRN PRN Reason: MILD Pain (Scale 1,2,3) Stop: 03/05/19 11:54 Morphine Sulfate (Morphine Sulfate) 2 mg IV Q3H PRN PRN Reason: MODERATE Pain (Scale 4,5,6) Stop: 03/05/19 11:54 Last Admin: 02/19/19 20:51 Dose: 2 mg Documented by: Morphine Sulfate (Morphine Sulfate) 3 mg IV Q3H PRN PRN Reason: SEVERE Pain (Scale 7,8,9,10) Stop: 03/05/19 11:54 Ondansetron HCl (Zofran) 4 mg IV Q4H PRN PRN Reason: Nausea And Vomiting Stop: 03/21/19 11:54 Last Admin: 02/19/19 20:51 Dose: 4 mg Documented by: Pantoprazole Sodium (Protonix) 40 mg PO BID [facility] Stop: 03/22/19 20:59 Resident Activity Tracking Resident Involvement: Resident Care Provided Care Provided: Adult Hospital Medicine
--- NOTE | 2019-02-20 08:06 | Cardiology Progress Note ---
Date of Service February 20, 2019 Assessment & Plan (1) Abnormal EKG: EKG improved. No symptoms to suggest ischemia. Echocardiogram performed on hospital day 1 revealed hyperdynamic left ventricular systolic function without regional wall motion of normalities. Patient is to have nasogastric tube and murillo removed. She is on metoprolol 50 mg twice daily orally at home. At present I recommend continuing her IV metoprolol for now as we advance liquid diet, once it is clear that she is tolerating orals, we will transition her back to oral metoprolol, would likely start with metoprolol tartrate 25 mg p.o. every 6 hours and transition to her home regimen of 50 twice daily as tolerated. We will defer electrolyte replacement to the critical care team this morning. Stable for transfer from my perspective out of the intensive care unit, but I would transfer her to telemetry to allow for use of IV metoprolol as needed. Continue subcutaneous heparin for DVT prophylaxis. (2) Volvulus of stomach: (3) HTN (hypertension): As noted above. Subjective Chief complaint: Postop follow-up Subjective: Patient is postop day 1 status post laparoscopic hiatal hernia repair and gastropexy for acute gastric volvulus. Postoperatively she was transferred back to ICU room 108. She tolerated the procedure well from a hemodynamic standpoint. Sinus rhythm in the 70 to low 80 bpm range has been present on telemetry overnight last night, and her systolic blood pressure has been stable in the range of 130 to 150 mmHg, having been receiving metoprolol tartrate 7.5 mg IV every 6 hours. She is comfortable. Her nasogastric tube is in place, but surgery has already seen the patient and this is to be removed as is her Murillo catheter. She denies any symptoms suggestive angina. Repeat EKG this morning continues to trend toward improvement. Previously noted inferior ST segment elevation is completely resolved, the lateral ST segment depression has been replaced by mild nonspecific ST and T wave abnormality in leads V3 to V6. Physical Exam Physical Exam: General: no acute distress and stated age Eyes: conjunctiva are pink and non-injected, sclera clear Neck: normal jugular venous pulse, no hepatojugular reflux Chest: normal shape and normal respiratory effort Lungs: clear to auscultation and percussion Cardiac Exam: - regular heart sounds, no murmurs, rubs, or gallops, no jugular venous distention Abdomen: abdomen soft, non-tender, no abnormal masses and no hepatosplenomegaly Soft, mild diffuse tenderness, port incisions clean dry and intact without erythema Extremities: no edema and no cyanosis -Knee-high sequential pneumatic compression devices in place Neuro:awake, coversant, follows commands, no focal motor deficits Psych: appropriate affect and insight. Results & Data Vital Signs (Past 12 Hours) Vital Signs Temp Pulse Pulse Resp BP BP Pulse Ox 02/20/19 06:00 73 14 149/54 H 94 02/20/19 05:41 88 151/60 H 02/20/19 05:00 85 19 151/60 H 93 02/20/19 04:00 36.6 C 77 17 134/56 L 92 02/20/19 03:00 76 16 148/56 H 97 02/20/19 02:00 77 18 141/53 H 97 02/20/19 01:00 72 17 139/56 L 97 02/20/19 00:11 85 138/53 L 02/20/19 00:00 37 C 78 13 138/53 L 97 02/19/19 23:00 77 14 151/55 H 98 02/19/19 22:00 78 12 144/58 H 98 02/19/19 21:00 78 86 22 161/69 H 95 02/19/19 20:00 37 C 78 14 182/77 H 94 Laboratory Results Comprehensive Metabolic Panel 02/20/19 02/20/19 Range/Units 05:09 06:32 Sodium 153 H 153 H (136-145) mmol/L Potassium 2.5 L* D 3.2 L D (3.5-5.1) mmol/L Chloride 126 H 119 H (98-107) mmol/L Carbon Dioxide 16 L 17 L (21-32) mmol/L BUN 10 D 13 (7-18) mg/dl Creatinine 0.26 L 0.48 L (0.6-1.2) mg/dl Glucose 119 H 143 H (70-99) mg/dl Calcium 5.6 L* D 7.0 L D (8.5-10.1) mg/dl Intake and Output 02/19/19 02/20/19 02/20/19 22:59 06:59 14:59 Intake Total 1633.667 / 4633.667 2000 / 4633.667 Output Total 601 / 2352 1200 / 2352 Balance 1032.667 / 2281.667 800 / 2281.667 Intake: IV 1633.667 / 4633.667 2000 / 4633.667 Normosol-R 1,000 ml @ 100 mls/ 886.667 / 3766.667 1880 / 3766.667 hr IV .Q10H [facility] Rx#:[id number] Zosyn 4.5 gm In D5 100 ml @ 30 240 / 360 120 / 360 mls/hr IV Q8H [facility] Rx#:[id number] Sodium Phosphate 21 Mmol In Nss 507 / 507 500 ml @ 88 mls/hr IV ONE ONE Rx#:[id number] Oral 0 / 0 0 / 0 Output: Urine Amount (Catheter) 1999 / 1999 Murillo/Indwelling 400 1999 Gastric Drainage 200 / 350 50 / 350 Left Nare 200 / 350 50 / 350 # Bowel Movements 1 / 2 Other: Weight 89.1 kg
[2019-02-20] MEDS: PANTOprazole 40 MG in SYRINGE 0 ML IV SCH (09:06)
[2019-02-20] MEDS: LEVOTHYROXINE SODIUM 37.5 MCG in SYRINGE 0 ML IV SCH (09:06)
[2019-02-20] MEDS ORDERED: POTASSIUM PHOSPHATE 30 MMOL in SODIUM CHLORIDE 0.9% 500 ML IV ONE (09:15)
[2019-02-20] MEDS: SODIUM CHLOR 0.45% + 20MEQ KCL 20 MEQ/1,000 ML BAG IV SCH ×2 (09:46→21:03)
[2019-02-20 13:32] LABS: BUN Creatinine Ratio 22.5 (10-20); Calcium 6.9 mg/dl (8.5-10.1); Creatinine Clr Calc Pharmacy 82.2 ml/min; Est GFR (African American) 103.5; Est GFR (Non-African American) 89.3; Potassium 3.4 mmol/L (3.5-5.1)
[2019-02-20] MEDS ORDERED: DKA GOAL RANGE 150-250 mg/dl ONE (13:52)
[2019-02-20] MEDS ORDERED: SEVERE STRESS LEVEL ONE (13:52)
[2019-02-20 14:01] LABS: Beta-Hydroxybutyrate 44.61 mg/dl (0.2-2.81)
[2019-02-20] MEDS ORDERED: INSULIN REGULAR 250 UNITS in SODIUM CHLORIDE 0.9% 247.5 ML IV SCH (14:30)
[2019-02-20] MEDS ORDERED: INSULIN GLARGINE SOLOSTAR 100 UNITS/ML 3 ML PEN SC ONE (14:45)
--- NOTE | 2019-02-20 15:00 | Hospitalist Progress Note ---
Date of Service February 20, 2019 Assessment & Plan (1) Volvulus of stomach: This is a 73 yr old F who has a significant PMH of T2DM with neuropathy and retinopathy, nonobstructive CAD, HTN, HLD, hypothyroidism, Gerd, hiatal hernia, PVD, senile osteoporosis, hx of R breast ca s/p mastectomy who presents to [facility] secondary to intractable n/v x 2 day. In ED, CT scan abd/pelvis- acute gastric volvulus in setting of large hiatal hernia concerning for gastric outlet obstruction along with inflammatory stranding about the distal pancreatic body and tail concerning for acute pancreatitis. -GI and Thoracic surgery consulted -Per Dr. Segovia - Pt to require surgical intervention; however upon anesthesia evaluation pt with ECG changes, elevated trop, DKA -Cardiology cleared as EKG changes, elevated trop unlikely ACS, mostly demand ischemia- On IV Metoprolol q 6 hours started pre operatively -DKA- resolved, anion gap resolved. -High risk for surgery but given nature of disease, needs to go for surgery POST OPERATIVE STATUS S/P Laparoscopic Gastric volvulus and Hernia repair, Gastropexy 02/19/19 -Post operatively: Doing well, Extubated successfully, tolerating clear liquids -Pain controlled (2) Hematemesis: (3) SIRS (systemic inflammatory response syndrome): Pt with leukocytosis and tachycardia on admission, per CMS guidelines meets SIRS criteria -S/P 2 L IVF -On IV Zosyn empirically- Day 3 -Work up- Blood cx, Urine cx- Gp B strep-No sensitivities to follow (4) DKA (diabetic ketoacidoses): Blood glucose on arrival 585 with Anion Gap of 16. Anion gap resolved, but today again it is 17 (post operative status). Creatinine normal Hold oral hypoglycemics -IVF -S/P IV Insulin drip ---> On Lantus now per pharmacy -Electrolyte replacement as needed -Will repeat BMP at 3 PM (5) Hypernatremia: Na is upto 153 today -IV Fluids changed to 1/2 NS with KCL by [facility] -Encourage PO fluids- Patient is drinking a lot as she is thristy -Repeat BMP at 3 PM (6) Hypokalemia: (7) Hypophosphatemia: Replete K, Phos KPHOS- 30 ml given today Follow up BMP at 3 PM (8) Acute kidney injury: Baseline creatinine 0.6, Now resolved Pre renal secondary to above Creatinine 2.2 on presentation -On IVF -Monitor (9) Diabetes: Last A1c 7.3 on 02/10/2019 Treatment as above (10) CAD (coronary artery disease): No chest pain or shortness of breath ECG -ST segment depression noted in the lateral precordial leads. Recent tracing- EKG changes has mildly improved -Elevated troponin - 0.212, 0.204 -On metoprolol, lisinopril, Crestor, ASA as outpatient (11) HTN (hypertension): -Blood pressure currently stable, monitor closely -On metoprolol, lisinopril, amlodipine as outpatient (12) HLD (hyperlipidemia): -Hold statin (13) DVT prophylaxis: SCDS Disposition: Ok to transfer to floor if repeat Electrolyes, Anion gap improving Updated son by bedside. Follow up: PCP Dr. Truong upon discharge Subjective Patient is feeling better today. She is thirsty and asking for more water/ice. Tolerated clear liquids and wants more. Mild abd pain at surgical site No fever, chills. Had a BM yesterday Physical Exam Physical Exam: Constitutional AAOX3, not in acute distress Respiratory normal respiratory effort, lungs clear to auscultation Cardiovascular Rate/Rhythm: + tachycardic Heart Sounds: no murmur Vessels: no JVD Extremities: no edema Gastrointestinal (Abdomen) S/P Hiatal hernia/Gastric volvulus repair Neurologic Conversant, follows commands. Results & Data Vital Signs (Past 12 Hours) Vital Signs Temp Pulse Pulse Resp BP BP Pulse Ox 02/20/19 14:01 75 22 144/59 H 96 02/20/19 14:00 68 21 94 02/20/19 13:30 69 18 96 02/20/19 13:05 70 20 139/56 L 96 02/20/19 13:00 74 20 139/56 L 96 02/20/19 12:30 66 14 96 02/20/19 12:01 75 23 135/48 L 97 02/20/19 12:00 79 23 98 02/20/19 11:30 81 27 H 88 L 02/20/19 11:15 94 02/20/19 11:03 78 22 144/61 H 97 02/20/19 11:00 0 L 25 H 89 L 02/20/19 10:30 36.6 C 77 15 90 02/20/19 10:01 78 18 142/60 H 94 02/20/19 10:00 68 15 96 02/20/19 09:30 72 19 94 02/20/19 09:01 81 18 133/61 95 02/20/19 09:00 73 22 94 02/20/19 08:30 36.6 C 90 21 94 02/20/19 08:00 82 18 154/63 H 94 02/20/19 07:30 81 17 93 02/20/19 07:01 85 20 158/64 H 90 02/20/19 07:00 81 19 94 02/20/19 06:45 75 13 92 02/20/19 06:00 73 14 149/54 H 94 02/20/19 05:41 88 151/60 H 02/20/19 05:00 85 19 151/60 H 93 02/20/19 04:00 36.6 C 77 17 134/56 L 92 02/20/19 03:00 76 16 148/56 H 97 (1) Hematemesis Nausea presence: unspecified Qualified Code(s): K92.0 - Hematemesis (2) DKA (diabetic ketoacidoses) Diabetes mellitus complication detail: without coma Diabetes mellitus type: other specified (including PAULA) Qualified Code(s): E13.10 - Other specified diabetes mellitus with ketoacidosis without coma
[2019-02-20] MEDS ORDERED: COUGH DROP (SUGAR FREE) LOZ 24 LOZ/1 BOX BUCCAL ONE (15:42)
[2019-02-20 16:27] LABS: BUN Creatinine Ratio 19.9 (10-20); Calcium 6.9 mg/dl (8.5-10.1); Creatinine Clr Calc Pharmacy 79.5 ml/min; Est GFR (African American) 102.4; Est GFR (Non-African American) 88.4; Potassium 3.4 mmol/L (3.5-5.1)
[2019-02-20 16:28] LABS: Phosphorus 2.2 mg/dl (2.5-4.9)
[2019-02-20] MEDS ORDERED: POTASSIUM CHLORIDE 20 MEQ TABCR PO STA (16:40)
[2019-02-20] MEDS ORDERED: INSULIN ASPART 100 UNITS/ML 3 ML PEN SC SCH (18:00)
[2019-02-20] MEDS: MoRPHine SULFATE 2 MG/ML CARP IV PRN (19:47)
[2019-02-20] MEDS ORDERED: INSULIN GLARGINE SOLOSTAR 100 UNITS/ML 3 ML PEN SC SCH (21:00)
[2019-02-20] MEDS: PANTOprazole 40 MG TAB PO SCH (21:11)
[2019-02-21] MEDS: INSULIN ASPART 100 UNITS/ML 3 ML PEN SC SCH ×6 (00:06→20:54)
[2019-02-21] MEDS: METOPROLOL TARTRATE 1 MG/ML VIAL IV SCH ×3 (00:08→12:52)
[2019-02-21] MEDS: HEPARIN SOD 5,000 UNIT/0.5 ML VIAL SQ SCH ×3 (06:03→20:56)
--- NOTE | 2019-02-21 06:13 | Progress Note ---
Date of Service February 21, 2019 Assessment & Plan (1) Acute gastric volvulus: will try some full liquids mobilize- will need 2-3 addnl days in hospital- possibly longer check labs Subjective awake , alert- min pain "broth is sallty" Physical Exam Physical Exam: abd soft, incisions stable Results & Data Vital Signs (Past 12 Hours) Vital Signs Temp Pulse Pulse Resp BP BP Pulse Ox 02/21/19 05:58 86 138/72 02/21/19 03:54 37.2 C 82 18 155/67 H 95 02/21/19 00:08 88 124/57 L 02/21/19 00:02 86 124/57 L 02/20/19 23:00 36.9 C 78 18 135/67 92 02/20/19 22:20 79 02/20/19 19:00 37.0 C 77 18 147/69 H
[2019-02-21 07:37] LABS: Hematocrit (blood only) 39.7 % (37-47); Hemoglobin 13.2 g/dL (12.0-16.0); Mean Corpuscular Hgb Conc 33.2 g/dL (32-36); Mean Corpuscular Volume 87.6 fL (80-100); Mean Platelet Volume 8.3 fL (7.4-10.4); Platelet Count 200 K/uL (130-400); RDW Coefficient of Variation 15.3 % (11.5-14.5); RDW Standard Deviation 49.1 fL (36.4-46.3); Red Blood Count 4.53 M/uL (4.2-5.4); White Blood Count 12.36 K/uL (4.8-10.8)
[2019-02-21] MEDS: ONDANSETRON INJ 2 MG/ML 2 ML VIAL IV PRN (08:04)
[2019-02-21] MEDS: PANTOprazole 40 MG TAB PO SCH ×2 (08:08→20:56)
[2019-02-21 08:14] LABS: BUN Creatinine Ratio 16.2 (10-20); Calcium 7.7 mg/dl (8.5-10.1); Creatinine Clr Calc Pharmacy 116.5 ml/min; Est GFR (African American) 116.1; Est GFR (Non-African American) 100.2; Magnesium 2.1 mg/dl (1.8-2.4); Potassium 3.3 mmol/L (3.5-5.1)
[2019-02-21 08:37] LABS: Phosphorus 0.9 mg/dl (2.5-4.9)
[2019-02-21] MEDS: SODIUM CHLOR 0.45% + 20MEQ KCL 20 MEQ/1,000 ML BAG IV SCH (09:09)
[2019-02-21] MEDS: INSULIN GLARGINE SOLOSTAR 100 UNITS/ML 3 ML PEN SC SCH ×2 (09:11→20:53)
[2019-02-21] MEDS: LEVOTHYROXINE SODIUM 37.5 MCG in SYRINGE 0 ML IV SCH (09:16)
[2019-02-21] MEDS ORDERED: POTASSIUM PHOS 3 MMOL/1 ML INFUSION IV ONE (12:54)
--- NOTE | 2019-02-21 13:26 | Hospitalist Progress Note ---
Date of Service February 21, 2019 Assessment & Plan (1) Acute gastric volvulus: Presented with acute gastric volvulus. Laparoscopic repair of hiatal hernia and gastropexy performed by Dr. Barber on 02/19/19. POD # 2. Postop management / diet per General Surgery. (2) SIRS (systemic inflammatory response syndrome): Met criteria for SIRS; most likely secondary to gastric volvulus, not sepsis. (3) Hematemesis: Secondary to gastric volvulus. Resolved. (4) Acute kidney injury: Serum creatinine day of admission was 2.02 compared to baseline of 0.6. Acute kidney injury secondary to gastric volvulus and associated problems. Creatinine today = 0.43. (5) Hypokalemia: Serum potassium is 3.2 day of admission and fell as low as 2.5. Potassium today = 3.3. Replace. Follow. (6) Hypernatremia: Serum sodium daily admission was 137 and anne-marie as high as 153. Sodium today = 144. Follow. (7) Hypophosphatemia: Serum phosphorus day of admission was 2.5. Phosphorus today = 0.9. Replace. Follow. (8) CAD (coronary artery disease): No anginal symptoms. Received IV metoprolol while acutely ill, transitioned to oral therapy. (9) GERD (gastroesophageal reflux disease): Continue PPI. 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 Random blood sugar at time of admission was 585. Initial anion gap was 16. BHG was 60. Hemoglobin A1c 7.6. Probable DM type 2 with metabolic acidosis due to combination of DKA and gastric ischemia. Pharmacy consulted for diabetes management. Received insulin per protocol. Fasting blood sugar this morning = 119. (11) Hypothyroidism: Received levothyroxine intravenously while acutely ill. Transition back to oral levothyroxine. (12) Urinary tract infection: (present on admission) Admission UA showed WBC's and bacteria. Urine culture grew group B beta strep. Doubt that SIRS at time of admission secondary to UTI. Received IV piperacillin / tazobactam x 4 days (should be adequate Rx. (13) Diarrhea: Check stools for C diff. (14) DVT prophylaxis: SQ heparin. SCD's. Ambulate. (15) Discharge planning issues: Discharge disposition to be determined. Family Medicine follow-up with Dr. Truong. Subjective Recheck for multiple problems. Patient seen in their room around 1230. Her was visiting. Doing fairly well. Tolerating liquid diet. No N/V. Multiple loose stools. Having some postop pain. Nursing notes that right IJ catheter leaking IV fluids near insertion site. Review of Systems: Constitutional- no fever. Cardiac- no chest pain. Pulmonary- no cough or SOB. GI- as noted above - no urinary symptoms. Otherwise, as noted above. Physical Exam Constitutional: no acute distress Neck: right IJ cath Respiratory: no respiratory distress Auscultation: + rhonchi (few) Cardiovascular: Rate/Rhythm: regular rate and regular rhythm Heart Sounds: no gallop, no murmur and no cardiac rub Vessels: no JVD Extremities: no calf tenderness and no edema Gastrointestinal (Abdomen): Inspection/Auscultation: normal bowel sounds Percussion/Palpation: abdomen soft Skin: no rashes, warm and dry Psychiatric: Orientation: alert and oriented x 3 Results & Data Vital Signs (Past 12 Hours) Vital Signs Temp Pulse Pulse Resp BP BP Pulse Ox 02/21/19 12:52 83 146/83 H 02/21/19 12:00 36.6 C 110 H 18 145/71 H 95 02/21/19 07:49 36.9 C 75 18 159/80 H 92 02/21/19 07:46 71 02/21/19 05:58 86 138/72 02/21/19 03:54 37.2 C 82 18 155/67 H 95 Laboratory Results Laboratory Results - last 24 hr 02/20/19 02/21/19 02/21/19 20:11 00:05 05:45 WBC RBC Hgb Hct MCV MCH MCHC RDW Std Deviation RDW Coeff of Blaire Plt Count MPV VBG pH Sodium Potassium Chloride Carbon Dioxide Anion Gap BUN Creatinine Est Cr Clr Drug Dosing Est GFR ( Amer) Est GFR (Non-Af Amer) BUN/Creatinine Ratio Glucose POC Glucose 221 H 162 H 125 H Calcium Phosphorus Magnesium 02/21/19 02/21/19 02/21/19 07:26 07:26 07:26 WBC 12.36 H RBC 4.53 Hgb 13.2 Hct 39.7 MCV 87.6 MCH 29.1 MCHC 33.2 RDW Std Deviation 49.1 H RDW Coeff of Blaire 15.3 H Plt Count 200 MPV 8.3 VBG pH 7.41 Sodium 144 Potassium 3.3 L Chloride 113 H Carbon Dioxide 24 Anion Gap 7.0 BUN 7 D Creatinine 0.43 L Est Cr Clr Drug Dosing 116.5 Est GFR ( Amer) 116.1 Est GFR (Non-Af Amer) 100.2 BUN/Creatinine Ratio 16.2 Glucose 134 H POC Glucose Calcium 7.7 L Phosphorus 0.9 L* D Magnesium 2.1 02/21/19 02/21/19 02/21/19 07:43 12:00 16:59 WBC RBC Hgb Hct MCV MCH MCHC RDW Std Deviation RDW Coeff of Blaire Plt Count MPV VBG pH Sodium Potassium Chloride Carbon Dioxide Anion Gap BUN Creatinine Est Cr Clr Drug Dosing Est GFR ( Amer) Est GFR (Non-Af Amer) BUN/Creatinine Ratio Glucose POC Glucose 119 H 176 H 210 H Calcium Phosphorus Magnesium (1) Hematemesis Nausea presence: unspecified Qualified Code(s): K92.0 - Hematemesis
[2019-02-21] MEDS ORDERED: POTASSIUM PHOSPHATE 21 MMOL in SODIUM CHLORIDE 0.9% 500 ML IV ONE (13:45)
--- NOTE | 2019-02-21 15:12 | Pharmacy Report ---
Pharmacy Glycemic Short Note 2 - Date of Service February 21, 2019 - Glycemic Short BSG Results (Last 24 hours): 02/20/19 02/20/19 02/20/19 15:59 16:28 20:11 Glucose 265 H POC Glucose 273 H 221 H 02/21/19 02/21/19 02/21/19 00:05 05:45 07:26 Glucose 134 H POC Glucose 162 H 125 H 02/21/19 02/21/19 07:43 12:00 Glucose POC Glucose 119 H 176 H OUTPATIENT ANTIDIABETIC REGIMEN: * Glipizide 20mg daily * Metformin 500mg BID * Empagliflozin 10mg daily * A1c 7.6% 02/18/19 ASSESSMENT: 02/21/19: * Patient became hyperglycemia yesterday afternoon. She was given a one time dose of Lantus 15 units, her Novolog carb ratio was tightened, and she was ordered a Lantus scale for bedtime. She was given a total of 51 units on 02/20: * 30 units of basal * 21 units of bolus * Fasting BSG today is at goal; 119 mg/dL. I will continue Lantus per scale. I suspect she needs 15-20 units per day. * Post prandial BSGs are slightly above goal, therefore I will further tighten carb ratio. 02/19/19 * Type 2 diabetic admitted to ICU w/ gastric volvulus * Patient was successfully transitioned off the insulin drip yesterday * Fasting BSG 108 this AM w/ 15 units of Lantus on board. Will continue a similar dose today, with next dose scheduled for this afternoon after surgery * Patient is NPO this AM for OR * Current Novolog CF and CR are level 2 (moderate) stress level and are appropriate starting points. Changing BSG checks to Q 4 hrs will offer the opportunity to provide additional correction if glycemic control deteriorates following OR today. * Will monitor for use of steroids by anesthesia as prevention of PONV as this will change our plan. PLAN FOR INPATIENT GLYCEMIC CONTROL: * Hold outpatient oral diabetes medications * Basal insulin * Lantus SQ BID, per the following scale * 0 units if less than 100 * 8 units if 140-200 * 15 units if greater than 200 * Bolus insulin - tighten carb ratio * NovoLog per scale Q4hrs * Goal Range: Low 120 mg/dL - High 150 mg/dL * Correction Factor: 25 mg/dL/unit * Nutritional / Prandial insulin per carb ratio of 1 unit per 7 grams CHO consumed PLAN FOR DISCHARGE: * A1c of 7.6% * If tighter control is warranted, consider addition of once daily basal insulin (Lantus or Levemir) per oral agents are already maximized * Start at 17 units SQ once daily
--- NOTE | 2019-02-21 15:43 | Cardiology Progress Note ---
Date of Service February 21, 2019 Assessment & Plan (1) Abnormal EKG: Transition IV metoprolol to alfredo metoprolol tartrate 25mg q6 hours. Continue subcutaneous heparin for DVT prophylaxis. (2) Volvulus of stomach: Stable HR and BP. No events on telemetry overnight. (3) HTN (hypertension): As noted above. Subjective Patient seen and examined at bedside. Notes mild abdominal discomfort. Tolerating clear liquids. Denies chest pain or shortness of breath. Sinus rhythm on telemetry. No dysrhythmias. Offers no other complaints this time. Review of Systems Review of Systems: All systems reviewed & are unremarkable except as noted in HPI & below Physical Exam Physical Exam: General: NAD, AAO x3, well nourished. Overweight, chronically ill. HEENT: Normocephalic. Atraumatic. Conjunctiva pink, no scleral icterus. Neck: No carotid bruits, the carotid upstrokes are brisk. No JVD. No HJR Heart: Regular normal S-1 and S-2 no S-3 or S-4 gallop. No murmurs or rub appreciated. PMI is not displaced. No RV heave. Lungs: Clear bilateral without rales , rhonchi, or wheeze. Abdomen: Normal bowel sounds. Soft. Nontender. No masses or organomegaly. No abdominal bruits. Extremities: No clubbing, cyanosis, or edema. Pulses: radial=2/4. Neuro: Cranial nerves grossly intact. No focal motor deficit. Results & Data Vital Signs (Past 12 Hours) Vital Signs Temp Pulse Pulse Resp BP BP Pulse Ox 02/21/19 12:52 83 146/83 H 02/21/19 12:00 36.6 C 110 H 18 145/71 H 95 02/21/19 07:49 36.9 C 75 18 159/80 H 92 02/21/19 07:46 71 02/21/19 05:58 86 138/72 02/21/19 03:54 37.2 C 82 18 155/67 H 95
[2019-02-21] MEDS: METOPROLOL TARTRATE 25 MG TAB PO SCH ×2 (18:16→23:21)
[2019-02-22] MEDS: LEVOTHYROXINE SODIUM 75 MCG TABLET PO SCH (05:57)
[2019-02-22] MEDS: HEPARIN SOD 5,000 UNIT/0.5 ML VIAL SQ SCH ×3 (05:57→20:55)
[2019-02-22] MEDS: METOPROLOL TARTRATE 25 MG TAB PO SCH ×4 (05:57→23:31)
[2019-02-22 07:19] LABS: Hematocrit (blood only) 36.8 % (37-47); Hemoglobin 12.6 g/dL (12.0-16.0); Mean Corpuscular Hgb Conc 34.2 g/dL (32-36); Mean Platelet Volume 8.8 fL (7.4-10.4); Platelet Count 194 K/uL (130-400); RDW Coefficient of Variation 15.3 % (11.5-14.5); RDW Standard Deviation 48.5 fL (36.4-46.3); Red Blood Count 4.28 M/uL (4.2-5.4); White Blood Count 10.85 K/uL (4.8-10.8)
[2019-02-22 07:46] LABS: BUN Creatinine Ratio 7.6 (10-20); Calcium 8.2 mg/dl (8.5-10.1); Creatinine Clr Calc Pharmacy 113.5 ml/min; Est GFR (African American) 112.8; Est GFR (Non-African American) 97.3; Potassium 3.2 mmol/L (3.5-5.1)
[2019-02-22 07:50] LABS: Phosphorus 1.8 mg/dl (2.5-4.9)
--- NOTE | 2019-02-22 07:57 | Surgery Progress Note ---
Date of Service February 22, 2019 Assessment & Plan (1) Acute gastric volvulus: 02/22/2019 POD #3 s/p Laparoscopic Hiatal Hernia Repair, Gastropexy WBC trending down almost within normal limits. Afebrile. Patient doing well, abdominal pain really limited to incision sites. Abd soft. Incisions clean, dry, intact. Tolerating full liquid diet without issue. Denies nausea. Continue full liquid diet. +BM, passing flatus Encouraged OOB- PT on board Dr Bettencourt- bell pt- doing well- as above- will adv to low fiber diet- she wants to advance Dr Bettencourt 02/21/2019 (1) Acute gastric volvulus: will try some full liquids mobilize- will need 2-3 addnl days in hospital- possibly longer check labs Subjective Patient resting comfortably in bed- states that she is doing good this AM, still having some mild abdominal pain, mostly at incision sites. Denies nausea. Multiple loose BMs yesterday. Physical Exam Gastrointestinal (Abdomen): Percussion/Palpation: + abdomen tender (at incision sites ) and abdomen soft surgical incisions with Dermabond, well- approximated, clean, dry. Results & Data Vital Signs (Past 12 Hours) Vital Signs Temp Pulse Pulse Resp BP Pulse Ox 02/22/19 05:56 155/82 H 02/22/19 03:45 37 C 69 20 114/71 94 02/21/19 23:15 71 02/21/19 23:12 37.3 C 84 20 117/68 94
[2019-02-22] MEDS ORDERED: POTASSIUM PHOS 3 MMOL/1 ML INFUSION IV ONE (08:08)
[2019-02-22] MEDS ORDERED: POTASSIUM PHOSPHATE 21 MMOL in SODIUM CHLORIDE 0.9% 500 ML IV ONE (08:30)
[2019-02-22] MEDS: PANTOprazole 40 MG TAB PO SCH ×2 (09:57→20:54)
[2019-02-22] MEDS: INSULIN GLARGINE SOLOSTAR 100 UNITS/ML 3 ML PEN SC SCH ×2 (10:00→20:54)
[2019-02-22] MEDS: INSULIN ASPART 100 UNITS/ML 3 ML PEN SC SCH ×4 (10:01→20:53)
--- NOTE | 2019-02-22 10:36 | Hospitalist Progress Note ---
Date of Service February 22, 2019 Assessment & Plan (1) Acute gastric volvulus: Presented with acute gastric volvulus. Laparoscopic repair of hiatal hernia and gastropexy performed by Dr. Barber on 02/19/19. POD # 3. Postop management / diet per General Surgery. (2) SIRS (systemic inflammatory response syndrome): Met criteria for SIRS; most likely secondary to gastric volvulus, not sepsis. (3) Hematemesis: Secondary to gastric volvulus. Resolved. (4) Acute kidney injury: Serum creatinine day of admission was 2.02 compared to baseline of 0.6. Acute kidney injury secondary to gastric volvulus and associated problems. Creatinine today = 0.47. (5) Hypokalemia: Serum potassium is 3.2 day of admission and fell as low as 2.5. Potassium today = 3.2. Replace. Follow. (6) Hypernatremia: Serum sodium daily admission was 137 and anne-marie as high as 153. Sodium today = 143. Follow. (7) Hypophosphatemia: Serum phosphorus day of admission was 2.5 and fell as low as 0.9. Received replacement. Phosphorus today = 1.8. Replace with another dose of K phos today. Follow. (8) CAD (coronary artery disease): No anginal symptoms. Received IV metoprolol while acutely ill, transitioned to oral therapy. (9) GERD (gastroesophageal reflux disease): Continue PPI. 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 Random blood sugar at time of admission was 585. Initial anion gap was 16. BHG was 60. Hemoglobin A1c 7.6. Probable DM type 2 with metabolic acidosis due to combination of DKA and gastric ischemia. Pharmacy consulted for diabetes management. Received insulin per protocol. Fasting blood sugar this morning = 195. (11) Hypothyroidism: Received levothyroxine intravenously while acutely ill. Transitioned back to oral levothyroxine. (12) Urinary tract infection: (present on admission) Admission UA showed WBC's and bacteria. Urine culture grew group B beta strep. Doubt that SIRS at time of admission secondary to UTI. Received IV piperacillin / tazobactam x 4 days (should be adequate Rx). (13) Diarrhea: Check stools for C diff. (14) DVT prophylaxis: SQ heparin. SCD's. Ambulate. (15) Discharge planning issues: Discharge disposition to be determined. May need skilled care or rehab. PT / OT. Family Medicine follow-up with Dr. Truong. Subjective Recheck for multiple problems. Patient seen in their room around 1020. Doing fairly well. Tolerating full liquid diet. No N/V. Multiple loose stools without blood. Having some postop pain. Review of Systems: Constitutional- no fever. Cardiac- no chest pain. Pulmonary- occasional cough, no SOB GI- as noted above - no urinary symptoms. Otherwise, as noted above. Physical Exam Constitutional: no acute distress Respiratory: no respiratory distress Auscultation: + rhonchi (few) Cardiovascular: Rate/Rhythm: regular rate and regular rhythm Heart Sounds: no gallop, no murmur and no cardiac rub Vessels: no JVD Extremities: + edema (chronic appearing lymphedema bilat lower extremities); no calf tenderness Gastrointestinal (Abdomen): Inspection/Auscultation: normal bowel sounds Percussion/Palpation: abdomen soft Skin: no rashes, warm and dry Psychiatric: Orientation: alert and oriented x 3 Results & Data Vital Signs (Past 12 Hours) Vital Signs Temp Pulse Pulse Resp BP Pulse Ox 02/22/19 08:05 37.1 C 87 20 131/69 93 02/22/19 05:56 155/82 H 02/22/19 03:45 37 C 69 20 114/71 94 02/21/19 23:15 71 02/21/19 23:12 37.3 C 84 20 117/68 94 Laboratory Results Laboratory Results - last 24 hr 02/21/19 02/21/19 02/21/19 12:00 16:59 20:07 WBC RBC Hgb Hct MCV MCH MCHC RDW Std Deviation RDW Coeff of Blaire Plt Count MPV Sodium Potassium Chloride Carbon Dioxide Anion Gap BUN Creatinine Est Cr Clr Drug Dosing Est GFR ( Amer) Est GFR (Non-Af Amer) BUN/Creatinine Ratio Glucose POC Glucose 176 H 210 H 237 H Calcium Phosphorus 02/22/19 02/22/19 02/22/19 06:42 06:42 07:23 WBC 10.85 H RBC 4.28 Hgb 12.6 Hct 36.8 L MCV 86.0 MCH 29.4 MCHC 34.2 RDW Std Deviation 48.5 H RDW Coeff of Blaire 15.3 H Plt Count 194 MPV 8.8 Sodium 143 Potassium 3.2 L Chloride 111 H Carbon Dioxide 26 Anion Gap 6.0 BUN 4 L Creatinine 0.47 L Est Cr Clr Drug Dosing 113.5 Est GFR ( Amer) 112.8 Est GFR (Non-Af Amer) 97.3 BUN/Creatinine Ratio 7.6 L Glucose 202 H POC Glucose 195 H Calcium 8.2 L Phosphorus 1.8 L (1) Hematemesis Nausea presence: unspecified Qualified Code(s): K92.0 - Hematemesis
--- NOTE | 2019-02-22 13:44 | Pharmacy Report ---
Pharmacy Glycemic Short Note 2 - Date of Service February 22, 2019 - Glycemic Short BSG Results (Last 24 hours): 02/21/19 02/21/19 02/22/19 16:59 20:07 06:42 Glucose 202 H POC Glucose 210 H 237 H 02/22/19 02/22/19 07:23 11:45 Glucose POC Glucose 195 H 264 H OUTPATIENT ANTIDIABETIC REGIMEN: * Glipizide 20mg daily * Metformin 500mg BID * Empagliflozin 10mg daily * A1c 7.6% 02/18/19 ASSESSMENT: 02/22/19: * Monique received 52 units of insulin yesterday * 23 units of basal insulin * 29 units of bolus insulin * Fasting BSG of 195 mg/dL is above goal. I will continue Lantus BID per scale. I have changed the BSG threshold so that she will be administered a dose of 15 units for BSG > 150 mg/dL (rather than > 200 mg/dL). * Despite tightening carb coverage yesterday, all post prandial BSGs were elevat ed. I will further tighten Novolog parameters. 02/21/19: * Patient became hyperglycemia yesterday afternoon. She was given a one time dose of Lantus 15 units, her Novolog carb ratio was tightened, and she was ordered a Lantus scale for bedtime. She was given a total of 51 units on 02/20: * 30 units of basal * 21 units of bolus * Fasting BSG today is at goal; 119 mg/dL. I will continue Lantus per scale. I suspect she needs 15-20 units per day. * Post prandial BSGs are slightly above goal, therefore I will further tighten carb ratio. 02/19/19 * Type 2 diabetic admitted to ICU w/ gastric volvulus * Patient was successfully transitioned off the insulin drip yesterday * Fasting BSG 108 this AM w/ 15 units of Lantus on board. Will continue a similar dose today, with next dose scheduled for this afternoon after surgery * Patient is NPO this AM for OR * Current Novolog CF and CR are level 2 (moderate) stress level and are appropriate starting points. Changing BSG checks to Q 4 hrs will offer the opportunity to provide additional correction if glycemic control deteriorates following OR today. * Will monitor for use of steroids by anesthesia as prevention of PONV as this will change our plan. PLAN FOR INPATIENT GLYCEMIC CONTROL: * Hold outpatient oral diabetes medications * Basal insulin * Lantus SQ BID, per the following scale * 0 units if less than 110 * 8 units if 110-150 * 15 units if greater than 150 * Bolus insulin * NovoLog per scale Q4hrs * Goal Range: Low 120 mg/dL - High 150 mg/dL * Tighten Correction Factor: 20 mg/dL/unit * Tighten Nutritional / Prandial insulin per carb ratio of 1 unit per 6 grams CHO consumed PLAN FOR DISCHARGE: * A1c of 7.6% * If tighter control is warranted, consider addition of once daily basal insulin (Lantus or Levemir) per oral agents are already maximized * Start at 17 units SQ once daily
[2019-02-23] MEDS: LEVOTHYROXINE SODIUM 75 MCG TABLET PO SCH (05:36)
[2019-02-23] MEDS: METOPROLOL TARTRATE 25 MG TAB PO SCH ×4 (05:36→23:48)
[2019-02-23] MEDS: HEPARIN SOD 5,000 UNIT/0.5 ML VIAL SQ SCH ×3 (05:37→21:16)
[2019-02-23 06:58] LABS: Hematocrit (blood only) 36.1 % (37-47); Hemoglobin 12.4 g/dL (12.0-16.0); Mean Corpuscular Hgb Conc 34.3 g/dL (32-36); Mean Corpuscular Volume 86.6 fL (80-100); Mean Platelet Volume 8.6 fL (7.4-10.4); Platelet Count 198 K/uL (130-400); RDW Coefficient of Variation 14.8 % (11.5-14.5); RDW Standard Deviation 46.8 fL (36.4-46.3); Red Blood Count 4.17 M/uL (4.2-5.4); White Blood Count 8.83 K/uL (4.8-10.8)
[2019-02-23 07:27] LABS: BUN Creatinine Ratio 6.5 (10-20); Calcium 8.4 mg/dl (8.5-10.1); Creatinine Clr Calc Pharmacy 108.1 ml/min; Est GFR (African American) 111.2; Magnesium 1.7 mg/dl (1.8-2.4); Potassium 3.1 mmol/L (3.5-5.1)
[2019-02-23] MEDS: PANTOprazole 40 MG TAB PO SCH ×2 (07:51→20:23)
[2019-02-23] MEDS: INSULIN GLARGINE SOLOSTAR 100 UNITS/ML 3 ML PEN SC SCH ×2 (08:15→21:15)
[2019-02-23] MEDS: INSULIN ASPART 100 UNITS/ML 3 ML PEN SC SCH ×4 (08:15→21:15)
--- NOTE | 2019-02-23 10:37 | Pharmacy Report ---
Pharmacy Glycemic Short Note 2 - Date of Service February 23, 2019 - Glycemic Short BSG Results (Last 24 hours): 02/22/19 02/22/19 02/22/19 11:45 16:19 20:08 Glucose POC Glucose 264 H 192 H 175 H 02/23/19 02/23/19 06:35 07:26 Glucose 187 H POC Glucose 184 H OUTPATIENT ANTIDIABETIC REGIMEN: * Glipizide 20mg daily * Metformin 500mg BID * Empagliflozin 10mg daily * A1c 7.6% 02/18/19 ASSESSMENT: 02/23/19: * Monique received 72 units of insulin yesterday * 30 units of basal insulin * 42 units of bolus insulin * Fasting BSG of 187 mg/dL is above goal. Lantus will continue BID per scale. Scale has been changed slightly with range of 07/31 from due to continued BSGs above goal. * Tightened carb ratio since pre-prandial BSGs are above goal. 02/22/19: * Monique received 52 units of insulin yesterday * 23 units of basal insulin * 29 units of bolus insulin * Fasting BSG of 195 mg/dL is above goal. I will continue Lantus BID per scale. I have changed the BSG threshold so that she will be administered a dose of 15 units for BSG > 150 mg/dL (rather than > 200 mg/dL). * Despite tightening carb coverage yesterday, all post prandial BSGs were elevated. I will further tighten Novolog parameters. 02/21/19: * Patient became hyperglycemia yesterday afternoon. She was given a one time dose of Lantus 15 units, her Novolog carb ratio was tightened, and she was ordered a Lantus scale for bedtime. She was given a total of 51 units on 02/20: * 30 units of basal * 21 units of bolus * Fasting BSG today is at goal; 119 mg/dL. I will continue Lantus per scale. I suspect she needs 15-20 units per day. * Post prandial BSGs are slightly above goal, therefore I will further tighten carb ratio. 02/19/19 * Type 2 diabetic admitted to ICU w/ gastric volvulus * Patient was successfully transitioned off the insulin drip yesterday * Fasting BSG 108 this AM w/ 15 units of Lantus on board. Will continue a similar dose today, with next dose scheduled for this afternoon after surgery * Patient is NPO this AM for OR * Current Novolog CF and CR are level 2 (moderate) stress level and are appropriate starting points. Changing BSG checks to Q 4 hrs will offer the opportunity to provide additional correction if glycemic control deteriorates following OR today. * Will monitor for use of steroids by anesthesia as prevention of PONV as this will change our plan. PLAN FOR INPATIENT GLYCEMIC CONTROL: * Hold outpatient oral diabetes medications * Basal insulin * Lantus SQ BID, per the following scale * 0 units if less than 110 * 8 units if 110-150 * 15 units if greater than 150 * Bolus insulin * NovoLog per scale Q4hrs * Goal Range: Low 120 mg/dL - High 150 mg/dL * Tighten Correction Factor: 20 mg/dL/unit * Tighten Nutritional / Prandial insulin per carb ratio of 1 unit per 6 grams CHO consumed PLAN FOR DISCHARGE: * A1c of 7.6% * If tighter control is warranted, consider addition of once daily basal insulin (Lantus or Levemir) per oral agents are already maximized * Start at 17 units SQ once daily
--- NOTE | 2019-02-23 12:14 | Surgery Progress Note ---
Date of Service February 23, 2019 Assessment & Plan (1) Acute gastric volvulus: doing well from my standpoint eating cod/grapes/mashed potatoes while I was in the room without issue ok for d/c from my standpoint Subjective pt feeling ok. some surgical discomfort. no n/v. +bm. scott soft diet. Physical Exam Physical Exam: alert. nad abd: soft. expected tenderness. no sign of infection Results & Data Vital Signs (Past 12 Hours) Vital Signs Temp Pulse Pulse Pulse Resp BP Pulse Ox 02/23/19 11:35 37.6 C H 90 16 142/67 H 96 02/23/19 07:37 37.4 C 74 16 158/72 H 94 02/23/19 07:00 77 02/23/19 04:58 37.2 C 90 18 175/75 H 92
[2019-02-23] MEDS ORDERED: ACETAMINOPHEN 500 MG TAB PO PRN (18:14)
--- NOTE | 2019-02-23 19:04 | Hospitalist Progress Note ---
Date of Service February 23, 2019 Assessment & Plan (1) Acute gastric volvulus: Presented with acute gastric volvulus. Laparoscopic repair of hiatal hernia and gastropexy performed by Dr. Barber on 02/19/19. POD # 4. Postop management / diet per General Surgery. (2) SIRS (systemic inflammatory response syndrome): Met criteria for SIRS; most likely secondary to gastric volvulus, not sepsis. (3) Hematemesis: Secondary to gastric volvulus. Resolved. (4) Acute kidney injury: Serum creatinine day of admission was 2.02 compared to baseline of 0.6. Acute kidney injury secondary to gastric volvulus and associated problems. Creatinine today = 0.49. (5) Hypokalemia: Serum potassium is 3.2 day of admission and fell as low as 2.5. Potassium today = 3.1. Replace. Follow. (6) Hypernatremia: Serum sodium daily admission was 137 and anne-marie as high as 153. Sodium today = 144. Follow. (7) Hypophosphatemia: Serum phosphorus day of admission was 2.5 and fell as low as 0.9. Received replacement. Phosphorus yesterday = 1.8. Follow. (8) CAD (coronary artery disease): No anginal symptoms. Received IV metoprolol while acutely ill, transitioned to oral therapy. (9) GERD (gastroesophageal reflux disease): Continue PPI. 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 Random blood sugar at time of admission was 585. Initial anion gap was 16. BHG was 60. Hemoglobin A1c 7.6. Probable DM type 2 with metabolic acidosis due to combination of DKA and gastric ischemia. Pharmacy consulted for diabetes management. Received insulin per protocol. Fasting blood sugar this morning = 184. (11) Hypothyroidism: Received levothyroxine intravenously while acutely ill. Transitioned back to oral levothyroxine. (12) Urinary tract infection: (present on admission) Admission UA showed WBC's and bacteria. Urine culture grew group B beta strep. Doubt that SIRS at time of admission secondary to UTI. Received IV piperacillin / tazobactam x 4 days (should be adequate Rx). (13) Diarrhea: Stools negative for C diff. (14) DVT prophylaxis: SQ heparin. SCD's. Ambulate. (15) Discharge planning issues: Discharge disposition to be determined. May need skilled care or rehab. PT / OT. Family Medicine follow-up with Dr. Truong. Subjective Recheck for multiple problems. Patient seen in their room around 1130. Feels a bit better each day. Less postop pain. Feels stronger. Starting to ambulate short distances with assistance. Tolerating full liquid diet. No N/V. Loose stools less frequent. Review of Systems: Constitutional- no fever. Cardiac- no chest pain. Pulmonary- occasional cough, no SOB GI- as noted above - no urinary symptoms. Physical Exam Constitutional: no acute distress Respiratory: normal respiratory effort, lungs clear to auscultation no respiratory distress Cardiovascular: Rate/Rhythm: regular rate and regular rhythm Heart Sounds: no gallop, no murmur and no cardiac rub Vessels: no JVD Extremities: + edema (chronic appearing lymphedema bilat lower extremities); no calf tenderness Gastrointestinal (Abdomen): Inspection/Auscultation: normal bowel sounds Percussion/Palpation: abdomen soft Skin: no rashes, warm and dry Psychiatric: Orientation: alert and oriented x 3 Results & Data Vital Signs (Past 12 Hours) Vital Signs Temp Pulse Pulse Resp BP Pulse Ox 02/23/19 17:29 87 136/76 02/23/19 16:00 83 02/23/19 15:49 37.6 C H 75 18 150/75 H 94 02/23/19 11:35 37.6 C H 90 16 142/67 H 96 02/23/19 07:37 37.4 C 74 16 158/72 H 94 02/23/19 07:00 77 Laboratory Results Laboratory Results - last 24 hr 02/22/19 02/23/19 02/23/19 20:08 06:35 06:35 WBC 8.83 RBC 4.17 L Hgb 12.4 Hct 36.1 L MCV 86.6 MCH 29.7 MCHC 34.3 RDW Std Deviation 46.8 H RDW Coeff of Blaire 14.8 H Plt Count 198 MPV 8.6 Sodium 144 Potassium 3.1 L Chloride 109 H Carbon Dioxide 27 Anion Gap 8.0 BUN 3 L Creatinine 0.49 L Est Cr Clr Drug Dosing 108.1 Est GFR ( Amer) 111.2 Est GFR (Non-Af Amer) 96.0 BUN/Creatinine Ratio 6.5 L Glucose 187 H POC Glucose 175 H Calcium 8.4 L Magnesium 1.7 L 02/23/19 02/23/19 02/23/19 07:26 11:21 16:01 WBC RBC Hgb Hct MCV MCH MCHC RDW Std Deviation RDW Coeff of Blaire Plt Count MPV Sodium Potassium Chloride Carbon Dioxide Anion Gap BUN Creatinine Est Cr Clr Drug Dosing Est GFR ( Amer) Est GFR (Non-Af Amer) BUN/Creatinine Ratio Glucose POC Glucose 184 H 181 H 170 H Calcium Magnesium (1) Hematemesis Nausea presence: unspecified Qualified Code(s): K92.0 - Hematemesis
[2019-02-23] MEDS ORDERED: POTASSIUM CHLORIDE 10 MEQ TABCR PO ONE (19:06)
[2019-02-23] MEDS ORDERED: POT PHOSPHATE MONOBASIC W/ SOD TAB PO SCH (21:00)
[2019-02-24] MEDS: LEVOTHYROXINE SODIUM 75 MCG TABLET PO SCH (05:18)
[2019-02-24] MEDS: METOPROLOL TARTRATE 25 MG TAB PO SCH ×4 (05:18→23:33)
[2019-02-24] MEDS: HEPARIN SOD 5,000 UNIT/0.5 ML VIAL SQ SCH ×3 (05:20→21:21)
[2019-02-24 07:00] LABS: BUN Creatinine Ratio 7.5 (10-20); Creatinine Clr Calc Pharmacy 117.7 ml/min; Est GFR (African American) 114.4; Est GFR (Non-African American) 98.7; Potassium 3.1 mmol/L (3.5-5.1)
[2019-02-24 07:02] LABS: Phosphorus 3.3 mg/dl (2.5-4.9)
--- NOTE | 2019-02-24 07:46 | Pharmacy Report ---
Pharmacy Glycemic Short Note 2 - Date of Service February 24, 2019 - Glycemic Short BSG Results (Last 24 hours): 02/23/19 02/23/19 02/23/19 07:26 11:21 16:01 Glucose POC Glucose 184 H 181 H 170 H 02/23/19 02/24/19 20:28 05:46 Glucose 190 H POC Glucose 155 H ASSESSMENT: 02/24/19: * Patient received total of 61 units of insulin yesterday, of which 28 units were basal insulin * Fasting BSG this morning elevated - likely not enough basal insulin yesterday, therefore will adjust Lantus for this morning * BSGs trending down yesterday from 181-170-151 mg/dL, much improved from day prior - will continue same CF/CR for now as anticipate further improvement today 02/23/19: * Monique received 72 units of insulin yesterday * 30 units of basal insulin * 42 units of bolus insulin * Fasting BSG of 187 mg/dL is above goal. Lantus will continue BID per scale. Scale has been changed slightly with range of 07/31 from 0/05/28 due to continued BSGs above goal. * Tightened carb ratio since pre-prandial BSGs are above goal. 02/22/19: * Monique received 52 units of insulin yesterday * 23 units of basal insulin * 29 units of bolus insulin * Fasting BSG of 195 mg/dL is above goal. I will continue Lantus BID per scale. I have changed the BSG threshold so that she will be administered a dose of 15 units for BSG > 150 mg/dL (rather than > 200 mg/dL). * Despite tightening carb coverage yesterday, all post prandial BSGs were elevated. I will further tighten Novolog parameters. PLAN FOR INPATIENT GLYCEMIC CONTROL: * Hold outpatient oral diabetes medications * Basal insulin - adjust/increase Lantus 20 x1 this morning, then * Lantus SQ BID, per the following scale -For BSG less than 160 - give 12 units -For BSG 160 or greater - give 15 units * Bolus insulin - continue same * NovoLog per scale Q4hrs * Goal Range: Low 120 mg/dL - High 150 mg/dL * Tighten Correction Factor: 20 mg/dL/unit * Tighten Nutritional / Prandial insulin per carb ratio of 1 unit per 5 grams CHO consumed
[2019-02-24] MEDS: PANTOprazole 40 MG TAB PO SCH ×2 (09:01→21:21)
[2019-02-24] MEDS: INSULIN GLARGINE SOLOSTAR 100 UNITS/ML 3 ML PEN SC SCH ×2 (09:02→21:23)
[2019-02-24] MEDS: INSULIN ASPART 100 UNITS/ML 3 ML PEN SC SCH ×4 (09:03→21:22)
--- NOTE | 2019-02-24 10:20 | Surgery Progress Note ---
Date of Service February 24, 2019 Assessment & Plan (1) Acute gastric volvulus: doing well from my standpoint PT/OT d/c planning. Subjective pt doing ok. scott diet. still having some abdominal/incisional discomfort but does not request pain meds. Physical Exam Physical Exam: alert/oriented. sitting in chair. abd: soft. expected tenderness. Results & Data Vital Signs (Past 12 Hours) Vital Signs Temp Pulse Pulse Pulse Resp BP Pulse Ox 02/24/19 07:28 37.1 C 79 16 164/79 H 95 02/24/19 05:18 83 155/80 H 02/24/19 04:00 37.5 C 87 22 169/81 H 93 02/24/19 00:00 77 02/23/19 23:09 36.9 C 93 H 20 127/84 95 02/23/19 23:04 37.3 C 82 18 168/78 H 96
[2019-02-24] MEDS: POTASSIUM CHLORIDE 20 MEQ TABCR PO SCH ×2 (12:35→21:21)
[2019-02-24] MEDS: POT PHOSPHATE MONOBASIC W/ SOD TAB PO SCH ×2 (12:36→21:22)
--- NOTE | 2019-02-24 19:52 | Hospitalist Progress Note ---
Date of Service February 24, 2019 Assessment & Plan (1) Acute gastric volvulus: Presented with acute gastric volvulus. Laparoscopic repair of hiatal hernia and gastropexy performed by Dr. Barber on 02/19/19. POD # 5. Postop management / diet per General Surgery. (2) SIRS (systemic inflammatory response syndrome): Met criteria for SIRS; most likely secondary to gastric volvulus, not sepsis. (3) Hematemesis: Secondary to gastric volvulus. Resolved. (4) Acute kidney injury: Serum creatinine day of admission was 2.02 compared to baseline of 0.6. Acute kidney injury secondary to gastric volvulus and associated problems. Creatinine today = 0.45. (5) Hypokalemia: Serum potassium is 3.2 day of admission and fell as low as 2.5. Potassium today = 3.1. Replace. Follow. (6) Hypernatremia: Serum sodium daily admission was 137 and anne-marie as high as 153. Sodium today = 142. Follow. (7) Hypophosphatemia: Serum phosphorus day of admission was 2.5 and fell as low as 0.9. Received replacement. Phosphorus today = 3.3. Follow. (8) CAD (coronary artery disease): No anginal symptoms. Received IV metoprolol while acutely ill, transitioned to oral therapy. (9) GERD (gastroesophageal reflux disease): Continue PPI. 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 Random blood sugar at time of admission was 585. Initial anion gap was 16. BHG was 60. Hemoglobin A1c 7.6. Probable DM type 2 with metabolic acidosis due to combination of DKA and gastric ischemia. Pharmacy consulted for diabetes management. Received insulin per protocol. Fasting blood sugar this morning = 169. (11) Hypothyroidism: Received levothyroxine intravenously while acutely ill. Transitioned back to oral levothyroxine. (12) Urinary tract infection: (present on admission) Admission UA showed WBC's and bacteria. Urine culture grew group B beta strep. Doubt that SIRS at time of admission secondary to UTI. Received IV piperacillin / tazobactam x 4 days (should be adequate Rx). (13) Diarrhea: Stools negative for C diff. Improving. (14) Fever: Low grade temp - Tmax = 37.8. Congested cough- check chest x-ray. Continue incentive spirometry. Had + urine culture at time of admission- check repeat UA. (15) DVT prophylaxis: SQ heparin. SCD's. Ambulate. (16) Discharge planning issues: Discharge disposition to be determined. May need skilled care or rehab. PT / OT. Family Medicine follow-up with Dr. Truong. Subjective Recheck for multiple problems. Patient seen in their room around 1140. Low grade fever. Persistent cough. Tolerating diet. No N/V. Diarrhea improved. Ambulating with assistance. Review of Systems: Constitutional- as noted above Cardiac- no chest pain. Pulmonary- occasional cough, no SOB GI- as noted above - no urinary symptoms. Physical Exam Constitutional: no acute distress Respiratory: normal respiratory effort, lungs clear to auscultation no respiratory distress Auscultation: + rhonchi (few) Cardiovascular: Rate/Rhythm: regular rate and regular rhythm Heart Sounds: no gallop, no murmur and no cardiac rub Vessels: no JVD Extremities: + edema (chronic appearing lymphedema bilat lower extremities); no calf tenderness Gastrointestinal (Abdomen): Inspection/Auscultation: normal bowel sounds Percussion/Palpation: abdomen soft Skin: no rashes, warm and dry Psychiatric: Orientation: alert and oriented x 3 Results & Data Vital Signs (Past 12 Hours) Vital Signs Temp Pulse Pulse Pulse Resp BP Pulse Ox 02/24/19 19:08 37.2 C 87 18 147/57 H 95 02/24/19 16:13 36.8 C 76 18 174/83 H 93 02/24/19 15:18 81 88 02/24/19 11:34 36.7 C 82 16 139/59 L 94 02/24/19 08:00 74 Laboratory Results Laboratory Results - last 24 hr 02/23/19 02/24/19 02/24/19 20:28 05:46 07:24 Sodium 142 Potassium 3.1 L Chloride 107 Carbon Dioxide 30 Anion Gap 5.0 BUN 3 L Creatinine 0.45 L Est Cr Clr Drug Dosing 117.7 Est GFR ( Amer) 114.4 Est GFR (Non-Af Amer) 98.7 BUN/Creatinine Ratio 7.5 L Glucose 190 H POC Glucose 155 H 169 H Calcium 8.0 L Phosphorus 3.3 D 02/24/19 02/24/19 11:40 16:36 Sodium Potassium Chloride Carbon Dioxide Anion Gap BUN Creatinine Est Cr Clr Drug Dosing Est GFR ( Amer) Est GFR (Non-Af Amer) BUN/Creatinine Ratio Glucose POC Glucose 165 H 131 H Calcium Phosphorus (1) Hematemesis Nausea presence: unspecified Qualified Code(s): K92.0 - Hematemesis
--- NOTE | 2019-02-24 21:10 | XRay Report ---
XR chest 2V routine CLINICAL HISTORY: cough, fever dyspnea COMPARISON STUDY: 02/18/2019 FINDINGS: Mildly improved aeration left lung base. Lungs otherwise are clear. Small posterior pleural effusions. IMPRESSION: 1. Improved infiltrative change left base. 2. Very small bilateral pleural effusions. The above report was generated using voice recognition software. It may contain grammatical, syntax or spelling errors. Electronically signed by: Christos Worley M.D. 02/24/2019 9:08 PM
[2019-02-24] MEDS ORDERED: ONDANSETRON 4 MG OD TAB PO PRN (21:24)
[2019-02-24 23:24] LABS: Appearance Urine Cloudy (Clear); Bacteria Urine Automated Negative (Negative); Bilirubin Urine Negative (Negative); Blood Urine Trace (Negative); Color Urine Yellow; Glucose Urine UA Trace (Negative); Ketones Urine Negative (Negative); Leukocyte Esterase Urine 3+ (Negative); Nitrite Urine Negative (Negative); Protein Urine Negative (Negative); RBC Urine Automated 0-4 /hpf (0-4); Specific Gravity Urine 1.007 (1.000-1.030); Urobilinogen Urine Negative (Negative); WBC Urine Automated >30 /hpf (0-5)
[2019-02-25] MEDS: METOPROLOL TARTRATE 25 MG TAB PO SCH ×2 (05:42→12:49)
[2019-02-25] MEDS: LEVOTHYROXINE SODIUM 75 MCG TABLET PO SCH (05:42)
[2019-02-25] MEDS: HEPARIN SOD 5,000 UNIT/0.5 ML VIAL SQ SCH ×2 (05:42→14:22)
[2019-02-25 07:23] LABS: Hematocrit (blood only) 38.2 % (37-47); Hemoglobin 12.6 g/dL (12.0-16.0); Mean Corpuscular Volume 87.6 fL (80-100); Platelet Count 232 K/uL (130-400); RDW Standard Deviation 47.1 fL (36.4-46.3); Red Blood Count 4.36 M/uL (4.2-5.4); White Blood Count 8.02 K/uL (4.8-10.8)
[2019-02-25 07:56] LABS: BUN Creatinine Ratio 3.6 (10-20); Calcium 8.7 mg/dl (8.5-10.1); Est GFR (African American) 105.2; Est GFR (Non-African American) 90.8; Potassium 3.7 mmol/L (3.5-5.1)
[2019-02-25] MEDS: POT PHOSPHATE MONOBASIC W/ SOD TAB PO SCH (08:29)
[2019-02-25] MEDS: POTASSIUM CHLORIDE 20 MEQ TABCR PO SCH (08:29)
[2019-02-25] MEDS: PANTOprazole 40 MG TAB PO SCH (08:30)
[2019-02-25] MEDS: INSULIN ASPART 100 UNITS/ML 3 ML PEN SC SCH ×2 (08:34→12:48)
[2019-02-25] MEDS: INSULIN GLARGINE SOLOSTAR 100 UNITS/ML 3 ML PEN SC SCH (08:36)
--- NOTE | 2019-02-25 11:28 | Surgery Progress Note ---
Date of Service February 25, 2019 Assessment & Plan (1) Acute gastric volvulus: POD 6 doing well/no surgical issues at this point d/c planning. Subjective no new complaints. scott diet. no n/v. Physical Exam Physical Exam: alert. nad abd: soft. nt. wounds look good. Results & Data Vital Signs (Past 12 Hours) Vital Signs Temp Pulse Pulse Pulse Resp BP BP 02/25/19 07:49 85 02/25/19 07:20 37.3 C 84 18 141/77 H 02/25/19 04:44 37.1 C 88 18 149/84 H 02/25/19 01:30 160/83 H 02/24/19 23:40 36.9 C 86 18 181/75 H 185/77 H 02/24/19 23:35 87 Pulse Ox 02/25/19 07:49 02/25/19 07:20 96 02/25/19 04:44 92 02/25/19 01:30 02/24/19 23:40 93 02/24/19 23:35
--- NOTE | 2019-02-25 13:13 | Hospitalist Progress Note ---
Date of Service February 25, 2019 Assessment & Plan (1) Acute gastric volvulus: Presented with acute gastric volvulus. Laparoscopic repair of hiatal hernia and gastropexy performed by Dr. Barber on 02/19/19. POD # 6. Postop management / diet per General Surgery. (2) SIRS (systemic inflammatory response syndrome): Met criteria for SIRS; most likely secondary to gastric volvulus, not sepsis. (3) Hematemesis: Secondary to gastric volvulus. Resolved. Continue PPI. (4) Acute kidney injury: Serum creatinine day of admission was 2.02 compared to baseline of 0.6. Acute kidney injury secondary to gastric volvulus and associated problems. Creatinine today = 0.58. (5) Hypokalemia: Serum potassium is 3.2 day of admission and fell as low as 2.5. Potassium today = 3.7. Replace. Follow. (6) Hypernatremia: Serum sodium daily admission was 137 and anne-marie as high as 153. Sodium today = 141. Follow. (7) Hypophosphatemia: Serum phosphorus day of admission was 2.5 and fell as low as 0.9. Received replacement. Phosphorus today = 4.0. Follow. (8) CAD (coronary artery disease): No anginal symptoms. Received IV metoprolol while acutely ill, transitioned to oral therapy. (9) GERD (gastroesophageal reflux disease): Continue PPI. 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 Random blood sugar at time of admission was 585. Initial anion gap was 16. BHG was 60. Hemoglobin A1c 7.6. Probable DM type 2 with metabolic acidosis due to combination of DKA and gastric ischemia. Pharmacy consulted for diabetes management. Received insulin per protocol. Fasting blood sugar this morning = 268. Transition back to oral agents with insulin coverage- see discharge med instructions. Follow blood sugars and continue to adjust therapy. (11) Hypothyroidism: Received levothyroxine intravenously while acutely ill. Transitioned back to oral levothyroxine. (12) Urinary tract infection: (present on admission) Admission UA showed WBC's and bacteria. Urine culture grew group B beta strep. Doubt that SIRS at time of admission secondary to UTI. Received IV piperacillin / tazobactam x 4 days (should be adequate Rx). (13) Diarrhea: Stools negative for C diff. Improving. (14) Fever: Low grade temp on 02/23. Occasional cough, chest exam improved. F/U chest x-ray showed improving infiltrate left base. Continue incentive spirometry. Had + urine culture at time of admission that was treated as discussed above. Repeat UA showed leukocyte esterase, WBC's, but many epithelial cells and no bacteria. No dysuria. Fever resolved. Leukocytosis resolved. No apparent indication for additional antibiotics at this time. Re-assess as necessary if fever recurs or symptoms worsen. (15) DVT prophylaxis: SQ heparin. SCD's. Ambulate. (16) Discharge planning issues: Needs skilled care. Arrangements being made for transfer to [facility] for skilled care. PT / OT. Family Medicine follow-up with Dr. Truong. General Surgery follow-up with Dr. Barber. Subjective Recheck for multiple problems. Patient seen in their room around 1145. visiting. No fever or chills. Occasional nonproductive cough. Not using incentive spirometry very much. Tolerating diet. No N/V. Diarrhea improved. Ambulating with assistance. Review of Systems: Constitutional- as noted above Cardiac- no chest pain. Pulmonary- occasional cough, no SOB GI- as noted above - no urinary symptoms. Physical Exam Constitutional: no acute distress Respiratory: normal respiratory effort, lungs clear to auscultation no respiratory distress Auscultation: + rales (few at left base) Cardiovascular: Rate/Rhythm: regular rate and regular rhythm Heart Sounds: no gallop, no murmur and no cardiac rub Vessels: no JVD Extremities: + edema (chronic appearing lymphedema bilat lower extremities); no calf tenderness Gastrointestinal (Abdomen): Inspection/Auscultation: normal bowel sounds Percussion/Palpation: abdomen soft Skin: no rashes, warm and dry Psychiatric: Orientation: alert and oriented x 3 Results & Data Vital Signs (Past 12 Hours) Vital Signs Temp Pulse Pulse Pulse Resp BP BP 02/25/19 11:36 37 C 78 16 149/62 H 02/25/19 07:49 85 02/25/19 07:20 37.3 C 84 18 141/77 H 02/25/19 04:44 37.1 C 88 18 149/84 H 02/25/19 01:30 160/83 H Pulse Ox 02/25/19 11:36 95 02/25/19 07:49 02/25/19 07:20 96 02/25/19 04:44 92 02/25/19 01:30 Laboratory Results Laboratory Results - last 24 hr 02/24/19 02/24/19 02/24/19 11:40 16:36 20:21 WBC RBC Hgb Hct MCV MCH MCHC RDW Std Deviation RDW Coeff of Blaire Plt Count MPV Sodium Potassium Chloride Carbon Dioxide Anion Gap BUN Creatinine Est Cr Clr Drug Dosing Est GFR ( Amer) Est GFR (Non-Af Amer) BUN/Creatinine Ratio Glucose POC Glucose 165 H 131 H 136 H Calcium Phosphorus Urine Color Urine Appearance Urine pH Ur Specific [place] Urine Protein Urine Glucose (UA) Urine Ketones Urine Blood Urine Nitrite Urine Bilirubin Urine Urobilinogen Ur Leukocyte Esterase Urine WBC (Auto) Urine RBC (Auto) U Hyaline Cast (Auto) U Epithel Cells (Auto) Urine Bacteria (Auto) 02/24/19 02/25/19 02/25/19 23:00 07:10 07:10 WBC 8.02 RBC 4.36 Hgb 12.6 Hct 38.2 MCV 87.6 MCH 28.9 MCHC 33.0 RDW Std Deviation 47.1 H RDW Coeff of Blaire 15.0 H Plt Count 232 MPV 9.0 Sodium 141 Potassium 3.7 D Chloride 104 Carbon Dioxide 31 Anion Gap 5.0 BUN 2 L Creatinine 0.58 L Est Cr Clr Drug Dosing 90.0 Est GFR ( Amer) 105.2 Est GFR (Non-Af Amer) 90.8 BUN/Creatinine Ratio 3.6 L Glucose 261 H POC Glucose Calcium 8.7 Phosphorus 4.0 Urine Color Yellow Urine Appearance Cloudy A Urine pH 7.0 Ur Specific [place] 1.007 Urine Protein Negative Urine Glucose (UA) Trace H Urine Ketones Negative Urine Blood Trace H Urine Nitrite Negative Urine Bilirubin Negative Urine Urobilinogen Negative Ur Leukocyte Esterase 3+ H Urine WBC (Auto) >30 H Urine RBC (Auto) 0-4 U Hyaline Cast (Auto) 1-5 U Epithel Cells (Auto) 10-20 H Urine Bacteria (Auto) Negative 02/25/19 02/25/19 07:38 11:35 WBC RBC Hgb Hct MCV MCH MCHC RDW Std Deviation RDW Coeff of Blaire Plt Count MPV Sodium Potassium Chloride Carbon Dioxide Anion Gap BUN Creatinine Est Cr Clr Drug Dosing Est GFR ( Amer) Est GFR (Non-Af Amer) BUN/Creatinine Ratio Glucose POC Glucose 268 H 185 H Calcium Phosphorus Urine Color Urine Appearance Urine pH Ur Specific [place] Urine Protein Urine Glucose (UA) Urine Ketones Urine Blood Urine Nitrite Urine Bilirubin Urine Urobilinogen Ur Leukocyte Esterase Urine WBC (Auto) Urine RBC (Auto) U Hyaline Cast (Auto) U Epithel Cells (Auto) Urine Bacteria (Auto) Microbiology 02/17/19 15:55 Blood Blood Culture - Final No growth 02/17/19 15:49 Blood Blood Culture - Final No growth 02/17/19 19:55 Urine,Clean Catch Urine Culture - Final Group B Beta Strep (1) Hematemesis Nausea presence: unspecified Qualified Code(s): K92.0 - Hematemesis
--- NOTE | 2019-02-25 13:59 | Discharge Summary ---
Date of Service Date of Admission: 02/17/19 Date of Discharge: 02/25/19 Admission HPI Per Admitting Provider This is a 73 yr old F who has a significant PMH of T2DM with neuropathy and retinopathy, nonobstructive CAD, HTN, HLD, hypothyroidism, Gerd, hiatal hernia, PVD, senile osteoporosis, hx of R breast ca s/p mastectomy who presents to [facility] secondary to intractable n/v x 2 day. is at bedside. Sx started on Saturday after sikhism when she had a meat lovers pizza. Shortly after she developed nausea and vomiting. Since she has been having intractable nausea vomiting along with coffee-ground emesis. She is unable to tolerate liquid or solids. Never had anything like this in the past. Complains of left-sided abdominal pain, constant, waxes and wanes in severity, nothing makes it better or worse. Elicits to chills and sweats. She denies any recent illness or sick contacts. She denies fever, lightheadedness, dizziness, chest pain, shortness of breath, palpitations, dysuria, increased urgency with urination, hematuria, melena, hematochezia. Up until 2 days ago her appetite and p.o. intake has been normal. She denies any helen weight loss or gain. She is unable to take meds given emesis. Admission Exam Per Admitting Provider Gen: Elderly, female, ill-appearing, having coffee-ground emesis during conversation, sitting up in bed, able to answer questions appropriately Head: Normocephalic, Atraumatic Eyes: Sclera normal, no conjunctival injection, PERRLA, EOMI ENT: Gross hearing intact, normal pharynx, mucous membranes dry Neck: supple, no adenopathy, No JVD, no bruit, Resp: Clear to auscultation b/l, no wheeze, rales, rhonchi. Normal insp/exp effort, no accessory muscle use CV: Tachycardic rate, regular rhythm, no murmur, rub, gallop, or ectopy Abd: Obese abdomen, absent bowel sounds, soft, nontender, nondistended Musculoskeletal: moves extremities active rom x 4, strength intact, good kitchen runner strength Extremities: +1 lower extremity jp bilaterally Skin: warm, dry, no rash, negative turgor, cap refill < 2sec Neuro: Alert and oriented x 3, speech normal, good mood/affect, cran nerve 2-12 intact grossly : deferred Principal Diagnosis gastric volvulus Discharge Exam Constitutional no acute distress Respiratory normal respiratory effort, lungs clear to auscultation no respiratory distress Auscultation: + rales (few at left base) Cardiovascular Rate/Rhythm: regular rate and regular rhythm Heart Sounds: no gallop, no murmur and no cardiac rub Vessels: no JVD Extremities: + edema (chronic appearing lymphedema bilat lower extremities); no calf tenderness Gastrointestinal (Abdomen) Inspection/Auscultation: normal bowel sounds Percussion/Palpation: abdomen soft Skin no rashes, warm and dry Psychiatric Orientation: alert and oriented x 3 Discharge Data Allergies Allergy/AdvReac Type Severity Reaction Status Date / Time No Known Allergies Allergy Verified 02/17/19 13:52 Consultations 02/17/19 15:13 ED Decision to Admit Stat 02/17/19 17:05 Consult Franchise Development Manager Stat 02/17/19 17:40 Consult Case Management - Discharge Planning Routine Consult Franchise Development Manager Routine 02/17/19 18:22 Consult Cardiology Routine Procedures Performed Operation Date: 02/17/19 07:00 <No data on this case meets the specified criteria> Operation Date: 02/19/19 08:10 Actual Procedures p Laparoscopic Hiatal Hernia Repair, Gastropexy(Not Applicable) - Mao Barber, Ordered Studies 02/17/19 14:22 CT abd pelvis wo con Stat 02/17/19 17:52 US point of care ultrasound Routine 02/18/19 07:09 CT chest wo con Stat 02/19/19 08:53 US guide vascular access Stat Hospital Course (1) Acute gastric volvulus: Presented with acute gastric volvulus. Laparoscopic repair of hiatal hernia and gastropexy performed by Dr. Barber on 02/19/19. POD # 6. Postop management / diet per General Surgery. (2) SIRS (systemic inflammatory response syndrome): Met criteria for SIRS; most likely secondary to gastric volvulus, not sepsis. (3) Hematemesis: Secondary to gastric volvulus. Resolved. Continue PPI. (4) Acute kidney injury: Serum creatinine day of admission was 2.02 compared to baseline of 0.6. Acute kidney injury secondary to gastric volvulus and associated problems. Creatinine day of discharge was 0.58. (5) Hypokalemia: Serum potassium is 3.2 day of admission and fell as low as 2.5. Potassium day of discharge was 3.7. Replace. Follow. (6) Hypernatremia: Serum sodium daily admission was 137 and anne-marie as high as 153. Sodium day of discharge was 141. Follow. (7) Hypophosphatemia: Serum phosphorus day of admission was 2.5 and fell as low as 0.9. Received replacement. Phosphorus day of discharge was 4.0. (8) CAD (coronary artery disease): No anginal symptoms. Received IV metoprolol while acutely ill, transitioned to oral therapy. (9) GERD (gastroesophageal reflux disease): Continue PPI. 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 Random blood sugar at time of admission was 585. Initial anion gap was 16. BHG was 60. Hemoglobin A1c 7.6. Probable DM type 2 with metabolic acidosis due to combination of DKA and gastric ischemia. Pharmacy consulted for diabetes management. Received insulin per protocol. Fasting blood sugar day of discharge was 268. Transition back to oral agents with insulin coverage- see discharge med instructions. Follow blood sugars and continue to adjust therapy. Increase glipizide and metformin in about 1 week if tolerated. Hopefully, insulin needs will taper down as oral agents kick in and patient will not need insulin when she returns home. (11) Hypothyroidism: Received levothyroxine intravenously while acutely ill. Transitioned back to oral levothyroxine. (12) Urinary tract infection: (present on admission) Admission UA showed WBC's and bacteria. Urine culture grew group B beta strep. Doubt that SIRS at time of admission secondary to UTI. Received IV piperacillin / tazobactam x 4 days (should be adequate Rx). (13) Diarrhea: Stools negative for C diff. Improving. (14) Fever: Low grade temp on 02/23. Occasional cough, chest exam improved. F/U chest x-ray showed improving infiltrate left base. Continue incentive spirometry. Had + urine culture at time of admission that was treated as discussed above. Repeat UA showed leukocyte esterase, WBC's, but many epithelial cells and no bacteria. No dysuria. Fever resolved. Leukocytosis resolved. No apparent indication for additional antibiotics at this time. Re-assess as necessary if fever recurs or symptoms worsen. (15) DVT prophylaxis: SQ heparin. SCD's. Ambulate. (16) Discharge planning issues: Needs skilled care. Arrangements being made for transfer to [facility] for skilled care. PT / OT. Family Medicine follow-up with Dr. Truong. General Surgery follow-up with Dr. Barber. Total Time Total Time Spent Total Time Spent (In Minutes): 45 Discharge Plan Discharge Items Patient Disposition: Transfer Detention Fac Reason For Visit: GASTRIC VOLVULUS Discharge Diagnosis: gastric volvulus Condition: Good Discharge Goals: Decrease discomfort and Improve function Activity: As commented below Activity Comment: gradually increase activity as tolerated Non-emergency contact: Primary Care Provider, Hospitalist and Surgeon Call non-emergency contact if: you have any medication questions, your pain is not controlled and your temperature is above 101 Follow-up/Referrals: Mao Barber, [Surgeon] - (Please call for appointment in 1-2 weeks.) Hemal Truong MD [Primary Care Provider] - Diet: Carb Consistent or DM2 and Heart Healthy Diet Comment: avoid very hard foods( breads/rolls, uncooked vegetables,dry meat) Addtl Provider Instructions: Please check blood sugars AC + HS. Please check BMP in 1 week. Incentive spirometry q 2 hours while awake. Thank you for receiving this patient in transfer. Please call if you have any questions. Daniel Pérez Prescriptions: New enoxaparin [Lovenox] 40 mg/0.4 mL syringe 40 mg SQ DAILY Qty: 4 RF: 0 ferrous sulfate 325 mg (65 mg iron) tablet 325 mg PO DAILY Qty: 30 RF: 0 glipizide 10 mg tablet extended release 24hr 10 mg PO DAILY Qty: 30 RF: 0 metformin 500 mg tablet 500 mg PO BIDM Qty: 60 RF: 0 Lantus Solostar U-100 Insulin 100 unit/mL (3 mL) insulin pen See Rx Instructions .ROUTE .COMPLEX Qty: 3 RF: 0 Novolog Flexpen U-100 Insulin 100 unit/mL (3 mL) insulin pen See Rx Instructions .ROUTE .COMPLEX Qty: 15 RF: 0 Continued amlodipine 5 mg Tablet 5 mg PO DAILY RF: 0 aspirin [Aspirin Low Dose] 81 mg Tablet,Delayed Release (Dr/Ec) 81 mg PO DAILY RF: 0 triamterene-hydrochlorothiazid 37.5-25 mg Capsule 1 cap PO DAILY RF: 0 triamcinolone acetonide 0.1 % cream 1 applic topical BID RF: 0 levothyroxine 75 mcg tablet 75 mcg PO DAILY RF: 0 metoprolol tartrate 50 mg tablet 50 mg PO BID RF: 0 omeprazole 20 mg capsule,delayed release(DR/EC) 20 mg PO DAILY RF: 0 lisinopril 5 mg tablet 5 mg PO DAILY RF: 0 ondansetron 4 mg tablet,disintegrating 1 tab translingual Q8H PRN (Reason: Nausea) RF: 0 cholecalciferol (vitamin D3) [Vitamin D3] 1,000 unit Capsule 2,000 unit PO DAILY RF: 0 rosuvastatin [Crestor] 40 mg tablet 40 mg PO DAILY RF: 0 diclofenac sodium 1 % gel 1 applic topical Q6H PRN (Reason: Pain) RF: 0 Jardiance 10 mg tablet 10 mg PO DAILY RF: 0 Discontinued glipizide 10 mg tablet extended release 24hr 20 mg PO DAILY RF: 0 alendronate 70 mg Tablet 70 mg PO WK RF: 0 ferrous sulfate 325 mg (65 mg iron) tablet 1 tab PO BID RF: 0 metformin 1,000 mg tablet 1,000 mg PO BID RF: 0 Stand-Alone Forms: My [facility] Skilled Items Patient informed of condition?: Yes DNR: No Discharge Level of Care: Skilled Communicable Disease: No Discharge Prognosis: Improving Admission Data Admit Date/Time: 02/17/19 17:15 Attending Provider: Daniel Pérez Admit Provider: Barrett Hammer Primary Care Provider: Hemal Truong Other Providers: Shiv Cox ; Barrett Hammer ; Hector Cole ; Yamila Winslow Service: Telemetry Medical Other Pending Studies at Discharge: No
== END 2019-02-25 16:20 | DRG 326 ==
LOC: ED 11:21 → OR 16:50 → SUATTDRO 17:15 → 1E 17:15 → 2N 02-20 18:05

== ENCOUNTER 2021-03-01 06:53 | Observation (INO) ==
--- NOTE | 2021-03-01 08:07 | Pre Anesthesia Assessment ---
Date of Service March 01, 2021 Pre Sedation Assessment Vital Signs Temp Pulse Pulse Pulse Resp BP Pulse Ox 03/02/21 11:55 36.7 C 69 18 133/78 94 03/02/21 07:34 36.6 C 70 19 149/82 H 94 03/02/21 07:14 78 03/02/21 04:00 36.7 C 72 18 159/73 H 95 03/01/21 23:47 37 C 75 17 150/78 H 94 03/01/21 19:17 36.7 C 99 H 25 H 154/84 H 93 03/01/21 17:08 36.9 C 98 H 20 137/69 95 03/01/21 16:37 96 H 03/01/21 16:08 18 146/72 H 96 03/01/21 15:34 37.1 C 93 H 20 149/81 H 94 03/01/21 15:08 91 H 17 143/72 H 96 Cardiovascular RRR, no murmur, no edema Respiratory normal respiratory effort, lungs clear to auscultation Pre-Sedation Airway Assessment Smoking Status: Former smoker Hx Sleep Apnea: No Short, Thick Neck: No Thyromental Distance: > or= 3.5 Finger Breadths Oral Cavity: + WNL Mallampati Class: II ASA: ASA3 NPO Status Date of Last Intake of Fluids: 03/01/21 Time of Last Intake of Fluids: 06:00 Date of Last Intake of Solid Food: 02/28/21 Time of Last Intake of Solid Foods: 19:00 Procedure Planning Contraindications for Sedation: none Current Medications Reviewed: Yes Notes The planned sedation has been discussed with the patient. Informed Consent was obtained. I have identified the patient, determined the appropriateness of sedation and have assessed the patient immediately prior to the procedure. All medicine(s) and interventions are by my order.
--- NOTE | 2021-03-01 08:07 | History & Physical Bridge Note ---
Date of Service March 01, 2021 History & Physical Bridge Note I have examined the patient, reviewed the History & Physical and in the interval since the performance of the History & Physical I have noted the following changes of clinical significance: no changes noted
[2021-03-01] MEDS ORDERED: HEPARIN (PORCINE) 1000 UNIT/ML 10 ML (CATH LAB USE ONLY) ONE ×2 (08:16→10:56)
[2021-03-01] MEDS ORDERED: NITROGLYCERIN/D5W 100MCG/ML 20ML SYR ONE (08:16)
[2021-03-01] MEDS ORDERED: fentaNYL citrate 100 MCG/2 ML VIAL ONE (08:16)
[2021-03-01] MEDS ORDERED: niCARdipine HCL INJ 2.5 MG/ML 10 ML AMP ONE (08:16)
[2021-03-01] MEDS ORDERED: MIDAZOLAM HCL 1 MG/ML 2ML VIAL ONE ×2 (08:16→10:00)
[2021-03-01] MEDS ORDERED: LABETALOL HCL IV 5 MG/ML 20ML (CATH LAB USE ONLY) ONE (08:51)
--- NOTE | 2021-03-01 09:43 | Post Anesthesia Assessment ---
Date of Service March 01, 2021 Post Sedation Assessment Vital Signs Temp Pulse Pulse Pulse Resp BP Pulse Ox 03/02/21 11:55 36.7 C 69 18 133/78 94 03/02/21 07:34 36.6 C 70 19 149/82 H 94 03/02/21 07:14 78 03/02/21 04:00 36.7 C 72 18 159/73 H 95 03/01/21 23:47 37 C 75 17 150/78 H 94 03/01/21 19:17 36.7 C 99 H 25 H 154/84 H 93 03/01/21 17:08 36.9 C 98 H 20 137/69 95 03/01/21 16:37 96 H 03/01/21 16:08 18 146/72 H 96 03/01/21 15:34 37.1 C 93 H 20 149/81 H 94 03/01/21 15:08 91 H 17 143/72 H 96 Recovery Score Activity: Moves 4 extremities Respiration: Deep Breath/Cough Circulation: +/-20% PreAnes Value Consciousness: Arouseable (by name) Oxygen Saturation: O2 needed for >90% Discharge Sedation Level of Care: Phase I Post Sedation Plan On clinical assessment, the patient appears to have tolerated the sedation without complications. Patient is recovering as anticipated. Patient will continue to be monitored by nursing and may be discharged when sedation discharge criteria are met per below protocol. Upon Completions of procedure up to 15 minutes continue every 5 minute vital signs and the P.A.R. score; then discharge to a Phase I or Fast Track to Phase II per the following guidelines: * Discharge Patient to appropriate Phase II area if PAR is 8 or greater or return to pre- procedure baseline. The post - procedure orders will be as directed. * If PAR score is less than 8 or not return to pre-procedure baseline then patient will follow Phase I monitoring till PAR is reached for Phase II. The Phase I may be done in procedure room or may call to secure a Phase I area. * If naloxone or flumazenil are used for reversal, hold in Phase I for continued monitoring from when last reversal dose was given for a minimum of 60 minutes or longer pending the nurse and/or physician discretion of patient condition before discharge to Phase II. Please call the Sedation Physician to re-evaluate and complete post-note for discharge to Phase II area. Do NOT discharge from procedure sedation or Phase 1 until post- sedation evaluation note is complete by procedure /sedation MD Sedation Discharge Instructions to be given to the patient at discharge to home.
--- NOTE | 2021-03-01 09:48 | Cardiac Catheterization ---
Cardiac Cath Procedure Full Procedure Date March 01, 2021 Pre-Procedure Diagnosis Pre-Procedure Diagnosis: Positive Stress Test AUC Score AUC Score: 8 Post-Procedure Diagnosis Post-Procedure Diagnosis: Severe CAD and Elevated Intracardiac Pressures Procedure(s) Performed Procedure(s) Performed: Coronary Angiography and Left Heart Cath Application Counselor Satinder Allen DO Head Of Maintenance(s) Giovana RTR Estimated Blood Loss Estimated Blood Loss: 6cc Medication(s) Medication(s): Fentanyl, Heparin, Labetalol, Lidocaine 1% and Versed Summary of Findings Severe ostial/proximal RCA 40-50% proximal LAD Hemodynamics Rest Ao:: 204/77/130 Final Ao: 202/80/130 LV: 197/9/23 Recommendations Recommendations: PCI without planned CABG Specimens Specimens: None Radiation Exposure (mGy) 987 Contrast (mls) 100 Fluids (cc crystalloids) Fluids (cc crystalloids): 120Nss Drains Drains: N/a Anesthesia Moderate sedation. Start 0831. End 0913. Sedation monitor: Nayeli WHITING Procedural Complication(s) None Disposition photo lab technician for PCI I attest to the content of the Intraoperative Record and any orders documented therein. Any exceptions are noted below. [facility] Data: Hospitality Services Manager Cardiac Status Clinical evaluation leading to the procedure Exertional chest discomfort. Lexiscan nuclear stress test performed with evidence of inducible ischemia. Patient referred for cardiac catheterization. CAD Presenation: Positive Stress Test and Stable angina Anginal Classification: CCS III Heart Failure: No Coronary Anatomy Dominant: Right Left Main (% Stenosis): Normal LAD (% Stenosis): Proximal (50%) and Mid (20%) D1 (% Stenosis): Normal D2 (% Stenosis): Normal Circumflex (% Stenosis): Normal RCA (% Stenosis): Ostial (70%) and Mid (10%) R PDA (% Stenosis): Normal R PL1 (% Stenosis): Normal R PL2 (% Stenosis): Normal Ramus (% Stenosis): Proximal (10%) Diagnostic Physicians Name: Satinder Allen DO Status: Elective Closure Device Percutaneous Entry Location: Femoral (Radial sheeth removed due poor blood retur n. Hemoband applied.) Recommendations: PCI without planned CABG Intraprocedure Events Significant Disection: No Perforation: No
[2021-03-01] MEDS ORDERED: hydrALAZINE HCL 20 MG/ML VIAL ONE (11:05)
[2021-03-01] MEDS ORDERED: CLOPIDOGREL BISULFATE 300 MG TAB ONE (11:07)
[2021-03-01] MEDS ORDERED: ONDANSETRON INJ 2 MG/ML 2 ML VIAL IV PRN (11:21)
[2021-03-01] MEDS ORDERED: ACETAMINOPHEN 325 MG TAB PO PRN (11:21)
--- NOTE | 2021-03-01 11:21 | Post Anesthesia Assessment ---
Date of Service March 01, 2021 Post Sedation Assessment Vital Signs Temp Pulse Resp BP Pulse Ox 03/01/21 07:09 99.3 F 85 17 178/97 H 96 Recovery Score Activity: Moves 4 extremities Respiration: Deep Breath/Cough Circulation: +/-20% PreAnes Value Consciousness: Arouseable (by name) Oxygen Saturation: O2 needed for >90% Discharge Sedation Level of Care: Fast Track Phase II Post Sedation Plan On clinical assessment, the patient appears to have tolerated the sedation without complications. Patient is recovering as anticipated. Patient will continue to be monitored by nursing and may be discharged when sedation discharge criteria are met per below protocol. Upon Completions of procedure up to 15 minutes continue every 5 minute vital signs and the P.A.R. score; then discharge to a Phase I or Fast Track to Phase II per the following guidelines: * Discharge Patient to appropriate Phase II area if PAR is 8 or greater or return to pre- procedure baseline. The post - procedure orders will be as directed. * If PAR score is less than 8 or not return to pre-procedure baseline then patient will follow Phase I monitoring till PAR is reached for Phase II. The Phase I may be done in procedure room or may call to secure a Phase I area. * If naloxone or flumazenil are used for reversal, hold in Phase I for continued monitoring from when last reversal dose was given for a minimum of 60 minutes or longer pending the nurse and/or physician discretion of patient condition before discharge to Phase II. Please call the Sedation Physician to re-evaluate and complete post-note for discharge to Phase II area. Do NOT discharge from procedure sedation or Phase 1 until post- sedation evaluation note is complete by procedure /sedation MD Sedation Discharge Instructions to be given to the patient at discharge to home.
[2021-03-01] MEDS ORDERED: SODIUM CHLORIDE 0.9% 1000ML 1,000 ML IV SCH (11:30)
[2021-03-01] MEDS ORDERED: CARBOHYDRATES FOR HYPOGLYCEMIA PO PRN ×2 (11:32→13:03)
[2021-03-01] MEDS ORDERED: GLUCOSE 40% GEL 15 GM TUBE PO PRN ×2 (11:32→13:03)
[2021-03-01] MEDS ORDERED: GLUCAGON FOR INJ 1 MG VIAL SQ PRN ×2 (11:32→13:03)
[2021-03-01] MEDS ORDERED: GLUCOSE 10 TABS/TUBE PO PRN ×2 (11:32→13:03)
[2021-03-01] MEDS ORDERED: DEXTROSE 50% 50 ML SYRINGE IV PRN ×2 (11:32→13:03)
--- NOTE | 2021-03-01 11:49 | Cardiac Catheterization ---
[facility] Data: County Director Cardiac Status Clinical evaluation leading to the procedure CAD Presenation: Positive Stress Test Anginal Classification: CCS III Heart Failure: No Cardiogenic Shock within 24 Hours: No Cardiac Arrest within 24 Hours: No Imaging Studies Past 6 Months: Yes Stress Studies Past 6 Months: Yes Diagnostic Physicians Name: Ramu Arora MD Status: Elective Closure Device Percutaneous Entry Location: Femoral Closure Device: Angio-Seal Recommendations: PCI without planned CABG PCI Indication: + Stress Test and Angina despite med therapy Lesion Segment Name: Ostial RCA Culprit Artery: Yes Stenosis Prior to Rx (%): 90 Chronic Total Occlusion: No IVUS: Yes FFR: No Pre-Procedure ELIZA Flow: 3 Previously Treated Lesion: No Lesion Complexity: High/C Lesion Length (mm): 10 Thrombus Present: No Bifurcation Lesion: Yes Guidewire Across Lesion: Stenosis Post-Procedure (%): 0 Post-Procedure ELIZA Flow: 3 Devices(s) Deployed: Yes Yes Intraprocedure Events Significant Disection: No Perforation: No Cardiac Cath Procedure Full Procedure Date March 01, 2021 Pre-Procedure Diagnosis Pre-Procedure Diagnosis: Positive Stress Test AUC Score AUC Score: 8 Post-Procedure Diagnosis Post-Procedure Diagnosis: Severe CAD and Successful PCI Procedure(s) Performed Procedure(s) Performed: Coronary Angiography, Drug Eluting Stent and IVUS Physician Assistant Psychiatry Ramu Arora MD Assistant Toddler Teacher(s) Giovana KIDDR Estimated Blood Loss Estimated Blood Loss: 15 Medication(s) Medication(s): Clopidogrel, Fentanyl, Heparin, Hydralazine, Nicardipine, Nitroglycerin and Versed Summary of Findings Indication: Abnormal stress test, accelerating angina Access: 6 Fr right common femoral artery Catheters: 3 DRC guide Findings: For full details of patient's coronary angiography please see cath report dictated by Dr. Allen. Briefly, patient found to have severe single vessel disease with a 90% ostial RCA stenosis. Decision to proceed with PCI. -- PCI -- Antithrombotic therapy: Heparin, clopidogrel Procedure: RCA cannulated with 3 DRC guide BMW wire passed across lesion into distal vessel Vina IVUS catheter placed across ostial stenosis. Pullback revealed circumferential calcium with severe stenosis at ostium (CSA less than 2.0 mm). Ostial RCA lesion predilated with 2.0 and 3.0 compliant balloons Dilated lesion stented with 3.5 x 15 mm Xience drug-eluting stent with stent extending into aorta Stent post-dilated with 4.0 noncompliant balloon Attempt made to flare stent further ostially with 4.0 ostial flash balloon IC vasodilators administered for spasm Repeat IVUS showed well-expanded, well apposed stent extending into aorta Post procedure ELIZA 3 flow, stent well expanded with minimal residual stenosis and no apparent cardiac complications. Arterial Closure: TR band Summary: 1. Successful PCI of ostial RCA with single drug-eluting stent (3.5 x 15 mm Xience; postdilated with 4.0 NC). Recommendations: To PCU for observation Loaded with clopidogrel 600 mg in County Director Continue dual-antiplatelet therapy for at least 6 months Consult cardiac Rehab If refractory symptoms in the future consider FFR of proximal LAD. RCA with anterior takeoff and now with ostial stent extending back in aorta. In order to cannulate if needed in the future would recommend femoral approach. Hemodynamics Rest Ao:: 177/70/114 Final Ao: 202/80/130 LV: -- Recommendations Recommendations: PCI without planned CABG Specimens Specimens: None Radiation Exposure (mGy) 3128 Contrast (mls) 150 Fluids (cc crystalloids) Fluids (cc crystalloids): 296 Drains Drains: N/a Anesthesia Moderate sedation. Start 952. End 1107. Sedation monitor: Nayeli WHITING Procedural Complication(s) None Disposition PCU I attest to the content of the Intraoperative Record and any orders documented therein. Any exceptions are noted below. [facility] Card Cath Procedure Codes Therapeutic Services & Ancillary Proc Procedure 1: Cardiovascular Tx and Anc Procedures: 97386 IV Ultrasound (Coronary or Graft) Moderate Sedation Procedure 1: Sedation/Anesthesia: 32619 Mod Sedation by the same physician; Ea [id number] Minutes Stenting Procedure 1: Cardiovascular Stent Procedures: 30553 Perc transcatheter placement of intracoronary stent(s), with ang PG Care Time/CCT Total # of Minutes Spent Total Time Spent with Patient: Total time spent is greater than 50% in coordination of care (as documented) at patient's floor/unit and/or counseling patient:
[2021-03-01] MEDS ORDERED: PHARMACY GLYCEMIC MGMT CONSULT PRN (12:05)
--- NOTE | 2021-03-01 12:57 | Consultation ---
Date of Consultation March 01, 2021 Assessment & Plan (1) S/P cardiac catheterization: (2) CAD (coronary artery disease): Pt is 75 y/o F with PMH HTN, HLD, DM II, obesity, Right breast CA s/p surgery and radiation, iron deficiency anemia, GERD, hypothyroidism seen in medical consultation s/p PCI & BOGDAN to ostial RCA today. Outpatient having angina and had positive outpatient stress test. Today had cardiac cath by Dr Allen showing 90% ostial RCA stenosis and BOGDAN placed by Dr Arora -Pt on PCU. Post op with some nausea, mid chest pain. Vitals stable. Right radial band in place without significant bleeding or edema -Was loaded with clopidogrel in seed laboratory technician -Aspirin, clopidogrel -Continue metoprolol tartrate, Crestor, isosorbide -Cardiology on board -CBC, BMP in am (3) HTN (hypertension): -Continue lisinopril, metoprolol tartrate -Cardiology added triamterene/hydrochlorothiazide (4) HLD (hyperlipidemia): -Continue rosuvastatin, ezetimibe (5) Diabetes mellitus, type II: A1c: 7.3 on 02/16/2021 -Hold Jardiance, glipizide, Metformin -NovoLog sliding scale per protocol. Glycemic pharmacy on board, appreciate management (6) Hypothyroidism: TSH: 4.8 on 02/16/2021 -Continue levothyroxine (7) GERD (gastroesophageal reflux disease): -Continue PPI (8) Breast cancer, right: S/p surgery and radiation DVT Prophylaxis -SCDs per cardiology Disposition per primary service Follows with Dr Truong for routine care Pt was seen and care coordinated with Dr Estevez. See addendum Thank you for this consultation. We will follow the patient with you during their hospital stay. You can reach a [facility] via [employer] text or pager @ [phone]. Supervising Physician Co-Signing Physician Notes I saw this patient with the physician neurosurgical physician assistant, I participated in the history, physical, review of systems, and physical exam on this consult. I reviewed the medications with the patient and the physician neurosurgical physician assistant and helped reconcile the medications. I helped take a detailed family and social history as well. I formulated the assessment and plan personally with the physician neurosurgical physician assistant and went over it with the patient. ROS-No Headache, No Visual Changes, +Nausea, +Vomiting, No Fever, No Chills, No Neck Pain or Stiffness, No Chest Pain, No Palpitations, No SOB, No TINAJERO, No Cou gh, No Sputum, No Wheezing, No Abdominal Pain, No Diarrhea, No Hematemesis, No Hemoptysis, No Unexpected Weight Loss, No Flank pain, No Melena, No Hematochezia, No Frequency, No Urgency, No Burning, No Hematuria, No Rashes, No Diaphoresis. Appetite is Normal Physical Exam Gen-AAO x 3, NAD, Afebrile, obese Head-NCAT, EOMI, PERRLA, Anicteric Sclera, No Posterior Pharyngeal Erythema Neck-Supple, No JVD, No Thyromegaly, No Masses, No LAD, No Bruits Lungs-Clear to Auscultation Bilaterally, No Rales, No Rhonchi, No Wheezing, No Crepitus Chest-No S4, +S1, +S2, No S3, No Murmurs, No Rubs, No Gallops, No Ectopy Abdomen-Soft, Bowel Sounds Present, Non Tender, Non Distended, No Hepatomegaly, No Splenomegaly, No Palpable Masses, No Rebound, No Rigidity, No Guarding Musculoskeletal-Full Range of Motion Bilaterally, No CVAT Extremities-No Cyanosis, No Clubbing, No Edema Nuero-Cranial Nerves II-XII grossly intact, Motor WNL, DTRs WNL, Strength WNL, Non Focal Psych-Normal Mood History of Present Illness Requesting Physician: Dr Arora Reason for Consultation: Medical consultation Attending Physician: Satinder Allen DO History of Present Illness Pt is 75 y/o F with PMH HTN, HLD, DM II, obesity, Right breast CA s/p surgery and radiation, iron deficiency anemia, GERD, hypothyroidism seen in medical consultation s/p PCI & BOGDAN to ostial RCA today by Dr Arora. Pt reports was having angina and she had a positive outpatient stress test. Today had cardiac cath by Dr Allen showing 90% ostial RCA stenosis. Post op pt reports had some nausea and vomited once. Also c/o some mid chest discomfort post op. Denies SOB. Reports intermittent BLE edema and denies any worsening recently. Denies fever/chills, diaphoresis, diarrhea, abdominal pain, LEZAMA, dizziness, syncope, vision changes, neck pain, palpitations, cough, sore throat, choking, otalgia, rhinorrhea, paresthesias, extremity weakness, rashes, urinary symptoms. Allergies Allergy/AdvReac Type Severity Reaction Status Date / Time No Known Allergies Allergy Verified 03/01/21 07:40 Home Medications Medication Instructions Recorded Confirmed Type Jardiance 10 mg PO DAILY 02/17/19 03/01/21 History aspirin [Aspirin Low Dose] 81 mg PO DAILY 02/17/19 03/01/21 History cholecalciferol (vitamin D3) 2,000 unit PO DAILY 02/17/19 03/01/21 History [Vitamin D3] diclofenac sodium 1 applic TOPICAL Q6H PRN 02/17/19 03/01/21 History levothyroxine 75 mcg PO DAILY 02/17/19 03/01/21 History metoprolol tartrate 50 mg PO BID 02/17/19 03/01/21 History omeprazole 20 mg PO DAILY 02/17/19 03/01/21 History rosuvastatin [Crestor] 40 mg PO DAILY 02/17/19 03/01/21 History ezetimibe [Zetia] 10 mg PO HS 03/01/21 03/01/21 History glipizide 10 mg PO BID 03/01/21 03/01/21 History isosorbide mononitrate 30 mg PO DAILY 03/01/21 03/01/21 History lisinopril 10 mg PO DAILY 03/01/21 03/01/21 History metformin 1,000 mg PO BIDM 03/01/21 03/01/21 History Patient History Medical History Breast cancer, right CAD (coronary artery disease) mild to moderate obstructive disease per left heart cath Diabetes Diabetes mellitus type 2 with complications Diabetic neuropathy Diabetic retinopathy Diverticulosis GERD (gastroesophageal reflux disease) Hiatal hernia HLD (hyperlipidemia) HTN (hypertension) Hypothyroidism PVD (peripheral vascular disease) Senile osteoporosis Volvulus of stomach Surgical History H/O cardiac catheterization no stents History of arthroscopy of knee History of colonoscopy with polypectomy History of esophagogastroduodenoscopy (EGD) erosive gastropathy History of partial mastectomy of right breast Family History (Updated 03/01/21 @ 13:07 by Lisa Cartwright PA-C) Mother Coronary heart disease Father Alzheimer disease Sister Diabetes Coronary heart disease Brother Coronary heart disease Social History Smoking Status: Former smoker Hx Alcohol Use: No Hx Substance Use: No Preferred Language: Occitan Communication Ability: Effective Manager Of Sales Required: Yes Beliefs That Will Affect Care: None marital status: Current Living Situation: Spouse current occupational status: retired Feels Safe at Home: Yes Safety Concerns: Feels Safe At This Time Assistive Devices: None Review of Systems Review of Systems: All systems reviewed & are unremarkable except as noted in HPI & below Physical Exam Physical Exam: General: no distress, obese Head: normocephalic, atraumatic Eyes: conjunctiva non-injected, anicteric ENT: normal inspection external ears, nose, mucous membranes moist Neck: supple, trachea midline Lungs: clear, no respiratory distress, no wheezing/rhonchi/rales CV: RRR, no murmur, no pretibial edema Abd: normal BS, soft, non-tender Ext: no cyanosis, no calf tenderness; right wrist: radial band in place without bleeding, without edema Neuro: A&O x 3, no focal deficits noted, normal affect Skin: warm, dry Results & Data ([facility]) Vital Signs (Past 12 Hours) Vital Signs Temp Pulse Resp BP Pulse Ox 03/01/21 12:26 75 18 147/76 H 95 03/01/21 12:12 88 17 147/69 H 96 03/01/21 11:55 90 17 152/83 H 96 03/01/21 11:40 37.1 C 81 18 144/82 H 95 03/01/21 11:35 77 18 146/67 H 97 03/01/21 11:20 78 18 158/91 H 97 03/01/21 07:09 37.4 C 85 17 178/97 H 96
[2021-03-01] MEDS: INSULIN ASPART 100 UNITS/ML 3 ML PEN SC SCH ×3 (13:18→20:16)
[2021-03-01] MEDS ORDERED: INSULIN GLARGINE SOLOSTAR 100 UNITS/ML 3 ML PEN SC ONE (14:00)
[2021-03-01] MEDS ORDERED: INSULIN ASPART 100 UNITS/ML 3 ML PEN SC SCH (14:00)
--- NOTE | 2021-03-01 14:21 | Pharmacy Report ---
Pharmacy Glycemic Short Note 2 - Date of Service March 01, 2021 - Glycemic Short BSG Results (Last 24 hours): 03/01/21 13:09 POC Glucose 311 H* OUTPATIENT ANTIDIABETIC REGIMEN: * Metformin 1000 mg PO BIDM * Glipizide 10 mg PO daily * Jardiance 10 mg PO daily * HbA1c: 7.3% (02/16/21) - per [facility] hospitalist consult note ASSESSMENT: * RF is a 75 year old female POD #0 s/p cardiac catheterization * Patient on triple oral antidiabetic regimen at home - HbA1c pending for tomorrow * Postoperative BSG of 311 mg/dL - pharmacy consulted for glycemic management * Will manage with SC insulin for now since no labs available * BMP to be ordered this afternoon - will plan to use IV insulin bolus if labs okay and BSG still above 300 mg/dL PLAN FOR INPATIENT GLYCEMIC CONTROL: * Hold outpatient oral diabetes medications * Basal insulin * Lantus 25 units SC x 1 (slightly less than full weight-based stress of 2 dosing) * Bolus insulin - weight-based stress of 2 * NovoLog per scale ACHS or Q6hrs while NPO * Goal Range: Low 110 mg/dL - High 150 mg/dL * Correction Factor: 25 mg/dL/unit * Nutritional / Prandial insulin per carb ratio of 1 unit per 9 grams CHO consumed * ,04 checks with same parameters PLAN FOR DISCHARGE: * tbd
[2021-03-01 15:33] LABS: Calcium 8.4 mg/dl (8.5-10.1); Creatinine Clr Calc Pharmacy 58.4 ml/min; Est GFR (African American) 79.4 ml/min; Est GFR (Non-African American) 68.5 ml/min; Potassium 4.6 mmol/L (3.5-5.1)
[2021-03-01] MEDS: METOPROLOL TARTRATE 50 MG TAB PO SCH (20:16)
[2021-03-01] MEDS ORDERED: ROSUVASTATIN CALCIUM 20 MG TAB PO SCH (21:00)
[2021-03-01] MEDS ORDERED: METOPROLOL TARTRATE 50 MG TAB PO SCH (21:00)
[2021-03-01] MEDS ORDERED: EZETIMIBE 10 MG TABLET PO SCH (21:00)
[2021-03-02] MEDS: INSULIN ASPART 100 UNITS/ML 3 ML PEN SC SCH ×5 (00:30→17:17)
[2021-03-02 05:32] LABS: Basophils # (auto) 0.02 K/uL (0-0.2); Basophils % (auto) 0.3 %; Eosinophils # (auto) 0.15 K/uL (0-0.5); Hematocrit (blood only) 45.1 % (37-47); Hemoglobin 14.5 g/dL (12.0-16.0); Immature Granulocytes # (auto) 0.02 K/uL (0.00-0.02); Immature Granulocytes % (auto) 0.3 %; Lymphocytes # (auto) 1.97 K/uL (1.2-3.4); Lymphocytes % (auto) 26.9 %; Mean Corpuscular Hemoglobin 28.4 pg (25-34); Mean Corpuscular Hgb Conc 32.2 g/dL (32-36); Mean Corpuscular Volume 88.3 fL (80-100); Mean Platelet Volume 8.5 fL (7.4-10.4); Monocytes # (auto) 0.73 K/uL (0.11-0.59); Neutrophils # (auto) 4.43 K/uL (1.4-6.5); Neutrophils % (auto) 60.5 %; Platelet Count 307 K/uL (130-400); RDW Coefficient of Variation 14.5 % (11.5-14.5); RDW Standard Deviation 47.3 fL (36.4-46.3); Red Blood Count 5.11 M/uL (4.2-5.4); White Blood Count 7.32 K/uL (4.8-10.8)
[2021-03-02 06:13] LABS: BUN Creatinine Ratio 22.6 (10-20); Calcium 8.7 mg/dl (8.5-10.1); Creatinine Clr Calc Pharmacy 80.7 ml/min; Est GFR (African American) 102.6 ml/min; Est GFR (Non-African American) 88.5 ml/min; Potassium 3.6 mmol/L (3.5-5.1)
[2021-03-02] MEDS ORDERED: LEVOTHYROXINE SODIUM 75 MCG TABLET PO SCH ×2 (06:30→09:00)
[2021-03-02] MEDS: METOPROLOL TARTRATE 50 MG TAB PO SCH (08:07)
[2021-03-02] MEDS ORDERED: lisinopril 5 MG TAB PO SCH (09:00)
[2021-03-02] MEDS ORDERED: EZETIMIBE 10 MG TABLET PO SCH (09:00)
[2021-03-02] MEDS ORDERED: PANTOprazole 40 MG TAB PO SCH (09:00)
[2021-03-02] MEDS ORDERED: ISOSORBIDE MONO EXTENDED REL 30 MG TABCR PO SCH ×2 (09:00)
[2021-03-02] MEDS ORDERED: ASPIRIN 81 MG ECTAB PO SCH (09:00)
[2021-03-02] MEDS ORDERED: lisinopril 10 MG TAB PO SCH (09:00)
[2021-03-02] MEDS ORDERED: ROSUVASTATIN CALCIUM 20 MG TAB PO SCH (09:00)
[2021-03-02] MEDS ORDERED: INSULIN GLARGINE SOLOSTAR 100 UNITS/ML 3 ML PEN SC ONE (09:00)
[2021-03-02] MEDS ORDERED: TRIAMTERENE/HCTZ 37.5/25MG CAP PO SCH (09:00)
[2021-03-02] MEDS ORDERED: CLOPIDOGREL BISULFATE 75 MG TAB PO SCH (09:00)
--- NOTE | 2021-03-02 11:13 | Pharmacy Report ---
Pharmacy Glycemic Short Note 2 - Date of Service March 02, 2021 - Glycemic Short BSG Results (Last 24 hours): 03/01/21 03/01/21 03/01/21 13:09 14:40 16:07 Glucose 394 H* POC Glucose 311 H* 337 H* 03/01/21 03/02/21 03/02/21 20:03 00:19 04:04 Glucose POC Glucose 296 H 155 H 172 H 03/02/21 03/02/21 05:20 07:22 Glucose 194 H POC Glucose 225 H OUTPATIENT ANTIDIABETIC REGIMEN: * Metformin 1000 mg PO BIDM * Glipizide 10 mg PO daily * Jardiance 10 mg PO daily * HbA1c: 7.3% (02/16/21) - per [facility] hospitalist consult note ASSESSMENT: 03/02 * AM fasting BSG elevated - will increase Lantus and continue BID * Patient may also require tightening of CHO ratio for Novolog, but correction factor seems OK based on adequate overnight BSG's 03/01 * RF is a 75 year old female POD #0 s/p cardiac catheterization * Patient on triple oral antidiabetic regimen at home - HbA1c pending for tomorrow * Postoperative BSG of 311 mg/dL - pharmacy consulted for glycemic management * Will manage with SC insulin for now since no labs available * BMP to be ordered this afternoon - will plan to use IV insulin bolus if labs okay and BSG still above 300 mg/dL PLAN FOR INPATIENT GLYCEMIC CONTROL: * Hold outpatient oral diabetes medications * Basal insulin * Lantus 15 units SC x1 now, then ongoing 10-20 units BID based on BSG (see MAR for details) * Bolus insulin * NovoLog per scale ACHS or Q6hrs while NPO * Goal Range: Low 110 mg/dL - High 140 mg/dL * Correction Factor: 25 mg/dL/unit * Nutritional / Prandial insulin per carb ratio of 1 unit per 7 grams CHO consumed PLAN FOR DISCHARGE: * tbd
--- NOTE | 2021-03-02 14:13 | Cardiology Progress Note ---
Date of Service March 02, 2021 Assessment & Plan (1) Unstable angina: (2) Abnormal nuclear stress test: (3) S/P right coronary artery (RCA) stent placement: Post cardiac catheterization restrictions listed below. Discussed importance of continuing dual antiplatelet therapy for a minimum of 6 months post percutaneous intervention. Other medications including beta-yolanda, ELY inhibitor, Zetia, isosorbide monohydrate and high intensity statin therapy will be continued as previously ordered. Outpatient cardiology follow-up in 2 weeks. ACTIVITY RECOMMENDATIONS: It is common to feel weak and fatigue for a few days. * Do not drive or operate any motorized equipment for the next three days. * Limit stair usage (2 or 3 trips a day only) for the next three days. * Do not lift anything heavier than 10 pounds for the next three days. * Do not engage in vigorous exercise or any sports for the next five days. * You may shower the day after your procedure, but do not immerse the area for three days. Cleanse the site gently with soap and water. SPECIAL CARE INSTRUCTIONS: * You may replace the pressure dressing or band-aid the morning after the procedure. * After your procedure, it is normal to have a small bruise or small lump at the site. Examine your site daily for any change in the bruise or lump, redness, swelling, drainage or numbness. Notify your doctor if any change. BLEEDING: * If there is a small amount of bleeding at the site, lie down and apply firm pressure with a clean cloth for ten minutes. When the bleeding stops, lie quietly keeping the procedure limb straight for six hours. Notify your doctor as soon as possible. * If the bleeding does not stop after ten minutes or if there is a large amount of bleeding or spurting, call 911 immediately. Continue to lie down and hold firm pressure until help arrives. SKIN IRRITATION: * You may experience some redness and/or swelling in the area where radiation was administered. If any skin irritation occurs, please contact your family physician. FOLLOW UP VISIT: Keep any scheduled doctor appointments. Admission and Anticipated Discharge Date Admission Date: March 01, 2021 Subjective Patient seen and examined at the bedside. Denies chest pain or shortness of breath overnight. No wrist or groin pain. Tolerating medications. Denies signs/symptoms of GI/ blood loss. Telemetry revealed sinus rhythm ranging from 60-70 bpm. Review of Systems Review of Systems: All systems reviewed & are unremarkable except as noted in Subjective Physical Exam Constitutional: well nourished and + obese; no acute distress Respiratory: no respiratory distress and no labored breathing Auscultation: lungs clear to auscultation bilaterally; no crackles, no rales, no rhonchi and no wheezes Cardiovascular: Rate/Rhythm: regular rate and regular rhythm Heart Sounds: normal S1 and normal S2; no murmur Vessels: radial pulses present; no JVD and no carotid bruit Extremities: no edema Gastrointestinal (Abdomen): Inspection/Auscultation: abdomen normal to inspection and normal bowel sounds; abdomen not distended Percussion/Palpation: abdomen soft; abdomen nontender, no guarding and abdomen not rigid Neurologic: CN's II-XI intact bilaterally and moves all extremities; no focal motor deficits Motor/Sensory: no tremor Psychiatric: A+Ox3, euthymic affect Results & Data ([facility]) Vital Signs (Past 12 Hours) Vital Signs Temp Pulse Pulse Pulse Resp BP Pulse Ox 03/02/21 11:55 36.7 C 69 18 133/78 94 03/02/21 07:34 36.6 C 70 19 149/82 H 94 03/02/21 07:14 78 03/02/21 04:00 36.7 C 72 18 159/73 H 95
[2021-03-02] MEDS ORDERED: CALCIUM CARBONATE 500 MG CHEWABLE TAB PO ONE (14:16)
--- NOTE | 2021-03-02 14:31 | Discharge Summary ---
Date of Service March 02, 2021 Principal Diagnosis Unstable angina Abnormal nuclear stress test s/p right coronary artery stent placement Discharge Data Allergies Allergy/AdvReac Type Severity Reaction Status Date / Time No Known Allergies Allergy Verified 03/01/21 07:40 Consultations 03/01/21 11:31 Consult Cardiac Rehabilitation Routine 03/01/21 11:34 Consult Hospitalist Routine Procedures Performed Operation Date: 03/01/21 08:00 Actual Procedures p Cath, Left with Cors and Vent - Satinder Allen DO s Cineradiography w/Routine Exam - Satinder Allen, DO s IVUS Coronary Single Vessel - Lupillo Arora MD s Drug Eluting Stent SGl Vessel - Lupillo Arora MD Ordered Studies 03/01/21 06:34 CL Cath Imgs for PACS use only Routine Hospital Course (1) S/P cardiac catheterization: (2) CAD (coronary artery disease): Pt is 75 y/o F with PMH HTN, HLD, DM II, obesity, Right breast CA s/p surgery and radiation, iron deficiency anemia, GERD, hypothyroidism seen in medical consultation s/p PCI & BOGDAN to ostial RCA today. Outpatient having angina and had positive outpatient stress test. Today had cardiac cath by Dr Allen showing 90% ostial RCA stenosis and BOGDAN placed by Dr Arora -Pt on PCU. Post op with some nausea, mid chest pain. Vitals stable. Right radial band in place without significant bleeding or edema -Was loaded with clopidogrel in labor relations consultant -Aspirin, clopidogrel -Continue metoprolol tartrate, Crestor, isosorbide -Cardiology on board -CBC, BMP in am (3) HTN (hypertension): -Continue lisinopril, metoprolol tartrate -Cardiology added triamterene/hydrochlorothiazide (4) HLD (hyperlipidemia): -Continue rosuvastatin, ezetimibe (5) Diabetes mellitus, type II: A1c: 7.3 on 02/16/2021 -Hold Jardiance, glipizide, Metformin -NovoLog sliding scale per protocol. Glycemic pharmacy on board, appreciate management (6) Hypothyroidism: TSH: 4.8 on 02/16/2021 -Continue levothyroxine (7) GERD (gastroesophageal reflux disease): -Continue PPI (8) Breast cancer, right: S/p surgery and radiation DVT Prophylaxis -SCDs per cardiology Disposition per primary service Follows with Dr Truong for routine care Pt was seen and care coordinated with Dr Estevez. See addendum Thank you for this consultation. We will follow the patient with you during their hospital stay. You can reach a member of the [facility] Hospitalist Team 06/05 via tiger text or pager @ [phone]. Total Time Total Time Spent Total Time Spent (In Minutes): 60 Total Time Includes: Examination of the Patient, Discharge Planning, Medication Reconciliation and Communication With Other Providers Discharge Plan Discharge Items Patient Disposition: Home - Self-Care Reason For Visit: Abn Nuc Stress Test, Chest Pain Discharge Diagnosis: Unstable angina Abnormal nuclear stress test s/p right coronary artery stent placement Follow-up/Referrals: Hemal Truong MD [Primary Care Provider] - Stand-Alone Forms: YOOSE, Smoking Cessation Medications and DC Order Prescriptions: New clopidogrel 75 mg Tablet 75 mg PO QAM Qty: 30 RF: 0 triamterene-hydrochlorothiazid 37.5-25 mg Capsule 1 cap PO QAM Qty: 30 RF: 0 Continued aspirin [Aspirin Low Dose] 81 mg Tablet,Delayed Release (Dr/Ec) 81 mg PO DAILY RF: 0 levothyroxine 75 mcg tablet 75 mcg PO DAILY RF: 0 metoprolol tartrate 50 mg tablet 50 mg PO BID RF: 0 omeprazole 20 mg capsule,delayed release(DR/EC) 20 mg PO DAILY RF: 0 cholecalciferol (vitamin D3) [Vitamin D3] 1,000 unit Capsule 2,000 unit PO DAILY RF: 0 rosuvastatin [Crestor] 40 mg tablet 40 mg PO DAILY RF: 0 diclofenac sodium 1 % gel 1 applic topical Q6H PRN (Reason: Pain) RF: 0 Jardiance 10 mg tablet 10 mg PO DAILY RF: 0 isosorbide mononitrate 30 mg Tablet Extended Release 24 Hr 30 mg PO DAILY RF: 0 ezetimibe [Zetia] 10 mg Tablet 10 mg PO HS RF: 0 metformin 500 mg tablet 1,000 mg PO BIDM RF: 0 lisinopril 10 mg Tablet 10 mg PO DAILY RF: 0 glipizide 10 mg Tablet Extended Release 24hr 10 mg PO BID RF: 0 Admission Data Admit Date/Time: 03/01/21 11:34 Attending Provider: Geri Crum Admit Provider: Lupillo Arora Primary Care Provider: Hemal Truong Other Providers: Lamonte Estevez
--- NOTE | 2021-03-02 18:40 | Electrocardiogram Report ---
Test Reason : Blood Pressure : / mmHG Vent. Rate : 071 BPM Atrial Rate : 071 BPM P-R Int : 160 ms QRS Dur : 084 ms QT Int : 382 ms P-R-T Axes : 061 000 071 degrees QTc Int : 415 ms Normal sinus rhythm Nonspecific T wave abnormality Abnormal ECG When compared with ECG of 20-FEB-2019 07:50, Nonspecific T wave abnormality no longer evident in Inferior leads Nonspecific T wave abnormality has replaced inverted T waves in Anterior leads Confirmed by Ramu Goldman ([id number]) on 03/02/2021 6:40:04 PM Referred By: Christos Nesbitt Confirmed By:Brett Goldman
[2021-03-02] MEDS ORDERED: INSULIN GLARGINE SOLOSTAR 100 UNITS/ML 3 ML PEN SC SCH (21:00)
== END 2021-03-02 18:06 | disposition home or self-care (01) ==
LOC: 2S 06:53 → CC 06:53 → SUATTDRO 11:34